=== PATIENT | female | born 1995 | race Caucasian/White ===

== ENCOUNTER 2016-09-30 15:30 | Outpatient (CLI) | payer OTHER | END 2016-09-30 15:31 | LOC: LAB.R 15:30 | PROVIDERS: ATTEND Physician Assistant Medical | DX: R35.0 Frequency of micturition (principal) | CPT/HCPCS: 87077; 87086 ==

== ENCOUNTER 2017-01-12 15:05 | Outpatient (CLI) | payer OTHER ==
[2017-01-12 19:40] LABS: BASOPHILS # (AUTO) 0.1 10^3/uL (0.0-0.1); BASOPHILS % (AUTO) 0.8 %; EOSINOPHILS # (AUTO) 0.2 10^3/uL (0.0-0.7); EOSINOPHILS % (AUTO) 2.5 %; HCT - HEMATOCRIT 40.2 % (37.0-47.0); HGB - HEMOGLOBIN 13.7 g/dL (12.0-16.0); LYMPHOCYTES # (AUTO) 2.7 10^3/uL (1.5-3.5); LYMPHOCYTES % (AUTO) 31.1 %; MEAN CORPUSCULAR HEMOGLOBIN 30.3 pg (27.0-31.0); MEAN CORPUSCULAR HGB CONC 33.9 g/dL (32.0-36.0); MEAN CORPUSCULAR VOLUME 89.4 fL (81.0-99.0); MEAN PLATELET VOLUME 8.8 fL (7.9-10.8); MONOCYTES # (AUTO) 0.7 10^3/uL (0.0-1.0); MONOCYTES % (AUTO) 8.4 %; NEUTROPHILS % (AUTO) 57.2 %; NUCLEATED RED BLOOD CELLS AUTO 0.1 /100WBC; RED CELL DISTRIBUTION WIDTH 12.5 % (12.0-15.0); UNCORRECTED WHITE BLOOD COUNT 8.8 x10^3/uL; WHITE BLOOD COUNT 8.8 x10^3/uL (4.8-10.8)
[2017-01-12 20:06] LABS: HEMOGLOBIN A1C 0.44 g/dL
[2017-01-12 20:15] LABS: ALBUMIN/GLOBULIN RATIO 1.7 (1.0-2.2); BILIRUBIN,TOTAL 0.4 mg/dL (0.2-1.0); BUN - BLOOD UREA NITROGEN 15 mg/dL (6-20); CALCIUM 9.4 mg/dL (8.5-10.3); CARBON DIOXIDE - CO2 23 mmol/L (21-32); CHLORIDE 107 mmol/L (101-111); CHOL/HDL RATIO 2.6 (<4.4); CHOLESTEROL 164 mg/dL; CREATININE 0.6 mg/dL (0.4-1.0); GFR - MDRD 125 (>89); GLUCOSE 81 mg/dL (70-100); HDL CHOLESTEROL 62 mg/dL; LDL/HDL RATIO 1.5 (<4.4); POTASSIUM 3.9 mmol/L (3.5-5.0); SODIUM 138 mmol/L (135-145); TOTAL PROTEIN 7.6 g/dL (6.7-8.2); TRIGLYCERIDES 50 mg/dL; VLDL CHOLESTEROL 10 mg/dL
[2017-01-12 20:20] LABS: PLATELET ESTIMATE, MANUAL NORMAL (130-450,000) (NORMAL); PLATELET MORPHOLOGY NORMAL APPEARANCE (NORMAL); WBC MORPHOLOGY (MULTIPLE) NORMAL APPEARANCE (NORMAL)
== END 2017-01-12 15:06 ==
LOC: LAB.WCP 15:05
PROVIDERS: ATTEND Family Medicine
DX: Z00.00 Encounter for general adult medical examination without abnormal findings (principal); R50.9 Fever, unspecified
CPT/HCPCS: 36415; 80053; 80061; 83036; 84443; 85025; 85651

== ENCOUNTER 2017-01-26 12:33 | Outpatient (CLI) | payer OTHER ==
--- NOTE | 2017-01-26 15:15 | CT Report ---
CT BRAIN WITHOUT CONTRAST: 01/26/2017 CLINICAL INDICATION: Headache. TECHNIQUE: Axial CT images of the brain were obtained without contrast. No previous CT is available for comparison. In accordance with CT protocol optimization, one or more of the following dose reduction techniques w ere utilized for this exam: automated exposure control, adjustment of mA and/or KV based on patient size, or use of iterative reconstructive technique. FINDINGS: The ventricles and sulci are normal in size, shape, and configuration. The basilar cister ns are patent. There is no evidence of hemorrhage, mass effect, or midline shift. No calvarial frac ture is present. Please also refer to CT of the sinuses of the same day. IMPRESSION: NORMAL CT OF THE BRAIN WITHOUT CONTRAST. JOB #: [id number] EXT JOB #:[id number]
--- NOTE | 2017-01-26 15:17 | CT Report ---
CT SINUSES WITHOUT CONTRAST: 01/26/2017 CLINICAL INDICATION: Fever, pain. TECHNIQUE: Axial CT images of the paranasal sinuses were obtained without contrast, following which sagittal and coronal reconstructions were performed. In accordance with CT protocol optimization, one or more of the following dose reduction techniques w ere utilized for this exam: automated exposure control, adjustment of mA and/or KV based on patient size, or use of iterative reconstructive technique. FINDINGS: There is mucosal thickening in the maxillary sinuses and right worse than left frontal sin uses, as well as patchy opacification of ethmoid air cells. The sphenoid sinus appears unremarkable. The nasal septum is midline. The ostiomeatal units are patent. The mastoid air cells appear alla lly pneumatized. No osseous destruction is seen. The visualized orbital contents appear unremarkabl e. IMPRESSION: CHRONIC SINUS DISEASE. JOB #: [id number] EXT JOB #:[id number]
--- NOTE | 2017-01-26 15:20 | XRAY Report ---
TWO VIEW CHEST: 01/26/2017 CLINICAL INDICATION: Fever. FINDINGS: Frontal and lateral views of the chest demonstrate a normal cardiac silhouette. The lungs are clear. No effusion or pneumothorax is present. IMPRESSION: NORMAL CHEST. JOB #: [id number] EXT JOB #:[id number]
== END 2017-01-26 12:34 | disposition home or self-care (01) ==
LOC: DI 12:33
PROVIDERS: ATTEND Family Medicine
DX: J32.9 Chronic sinusitis, unspecified (principal)
CPT/HCPCS: 70450; 70486; 71020

== ENCOUNTER 2017-06-15 09:45 | Emergency (ER) | payer OTHER ==
[2017-06-15 10:26] LABS: BASOPHILS # (AUTO) 0.1 10^3/uL (0.0-0.1); BASOPHILS % (AUTO) 0.9 %; EOSINOPHILS # (AUTO) 0.4 10^3/uL (0.0-0.7); EOSINOPHILS % (AUTO) 4.8 %; HGB - HEMOGLOBIN 12.7 g/dL (12.0-16.0); LYMPHOCYTES % (AUTO) 33.6 %; MEAN CORPUSCULAR HGB CONC 34.8 g/dL (32.0-36.0); MEAN CORPUSCULAR VOLUME 86.3 fL (81.0-99.0); MEAN PLATELET VOLUME 7.7 fL (7.9-10.8); MONOCYTES # (AUTO) 0.7 10^3/uL (0.0-1.0); MONOCYTES % (AUTO) 7.5 %; NEUTROPHILS # (AUTO) 4.7 10^3/uL (1.5-6.6); NEUTROPHILS % (AUTO) 53.2 %; PLT - PLATELET COUNT 307 10^3/uL (130-450); RED BLOOD COUNT 4.24 10^6/uL (4.20-5.40); RED CELL DISTRIBUTION WIDTH 12.4 % (12.0-15.0); WHITE BLOOD COUNT 8.9 x10^3/uL (4.8-10.8)
[2017-06-15 10:36] LABS: CALCIUM 9.2 mg/dL (8.5-10.3); CREATININE 0.5 mg/dL (0.4-1.0)
--- NOTE | 2017-06-15 11:24 | ED Physician Documentation ---
History of Present Illness - Stated complaint Stated Complaint: FEMALE - Chief complaint Chief Complaint: General - History obtained from History obtained from: Patient - History of Present Illness Timing: How many days ago (2) - Additonal information Additional information: 21-year-old female had a LEEP procedure done about 2 weeks ago and the day before yesterday she had some vomiting and following that she developed vaginal bleeding. She has had a lot of vaginal bleeding as many as a pad every hour. She had some pain associated with this the pain is now improved she continues to have the bleeding. She did have some lightheaded and dizziness yesterday that is resolved today. Review of Systems Constitutional: denies: Fever Eyes: denies: Decreased vision Ears: denies: Ear pain Nose: denies: Congestion Throat: denies: Sore throat Cardiac: denies: Chest pain / pressure Respiratory: denies: Dyspnea, Cough GI: reports: Nausea (resolved), Vomiting (resolved). denies: Abdominal Pain : reports: Vaginal bleeding. denies: Dysuria, Frequency Skin: denies: Rash Musculoskeletal: denies: Neck pain, Back pain, Extremity pain PD PAST MEDICAL HISTORY - Past Medical History Past Medical History: No - Past Surgical History Past Surgical History: Yes HEENT: Tonsil/Adenoidectomy - Present Medications Home Medications: Ambulatory Orders Medication Instructions Recorded Confirmed No Known Home Medications [No 06/15/17 06/15/17 Known Home Medications] - Allergies Allergies/Adverse Reactions: Allergies Allergy/AdvReac Type Severity Reaction Status Date / Time steroids Allergy Unknown Uncoded 06/15/17 09:52 - Social History Does the pt smoke?: No Smoking Status: Never smoker PD ED PE NORMAL - Vitals Vital signs reviewed: Yes (hypertensive) - General General: Alert and oriented X 3, No acute distress, Well developed/nourished - HEENT HEENT: Atraumatic, PERRL - Neck Neck: Supple, no meningeal sign - Respiratory Respiratory: No respiratory distress - Abdomen Abdomen: Soft, Non tender - Back Back: No CVA TTP, No spinal TTP - Derm Derm: Normal color, Warm and dry, No rash - Extremities Extremities: No deformity, No edema - Neuro Neuro: No motor deficit, No sensory deficit Eye Opening: Spontaneous Motor: Obeys Commands Verbal: Oriented GCS Score: 15 - Psych Psych: Normal mood, Normal affect Results - Vitals Vitals: Vital Signs - 24 hr 06/15/17 09:49 Temperature 37.0 C Heart Rate 77 Respiratory 18 Rate Blood Pressure 146/78 H O2 Saturation 98 Oxygen O2 Source Room air - Labs Labs: Laboratory Tests 06/15/17 06/15/17 10:08 10:08 WBC 8.9 RBC 4.24 Hgb 12.7 Hct 36.6 L MCV 86.3 MCH 30.0 MCHC 34.8 RDW 12.4 Plt Count 307 MPV 7.7 L Neut # 4.7 Lymph # 3.0 [place] # 0.7 Eos # 0.4 Baso # 0.1 Absolute Nucleated RBC 0.00 Nucleated RBC % 0.0 Sodium 140 Potassium 3.5 Chloride 109 Carbon Dioxide 22 Anion Gap 9.0 BUN 13 Creatinine 0.5 Estimated GFR (MDRD) 154 Glucose 88 Calcium 9.2 PD MEDICAL DECISION MAKING - ED course Complexity details: reviewed old records, reviewed results, re-evaluated patient , considered differential, d/w patient ED course: 21-year-old female with vaginal bleeding a significant quantity after having a LEEP procedure. Her blood counts today are in a normal range and I have contacted her surgeon Dr. Marlow and he has recommended that she go to the clinic today for treatment. The clinic is contacted and they will contact the patient regarding a time to come in today. Departure - Departure Disposition: 01 Home, Self Care Clinical Impression: Vaginal bleeding, abnormal Condition: Stable Instructions: ED Bleed Irregular Vaginal Follow-Up: Jazmin Kulkarni MD [Primary Care Provider] - John Marlow MD [Provider Admit Priv/Credential] - Comments: Follow-up in the clinic today for treatment.
[2017-06-15 11:27] VITALS: BP 157/88
== END 2017-06-15 11:40 | disposition home or self-care (01) ==
LOC: ED 09:45
DX: N93.9 Abnormal uterine and vaginal bleeding, unspecified (principal); Z98.890 Other specified postprocedural states
CPT/HCPCS: 36415; 80048; 85025; 99283

== ENCOUNTER 2018-12-17 13:39 | Outpatient (CLI) | payer OTHER ==
--- NOTE | 2018-12-17 15:41 | Ultrasound Report ---
Reason: MENORRHAGIA Procedure Date: 12/17/2018 Accession Number: [id number] / [id number] Procedure: US - Pelvic w/Transvaginal CPT Code: FULL RESULT: EXAM: PELVIC ULTRASOUND EXAM DATE: 12/17/2018 03:18 PM. CLINICAL HISTORY: Menorrhagia. COMPARISON: None. TECHNIQUE: Realtime transabdominal pelvic scan performed to identify the uterus and adnexa and as an overview of other pelvic structures, followed by transvaginal scan to provide greater detail of the uterus and adnexa, with static image documentation. FINDINGS: Uterus: 6.9 x 2.5 x 4.5 cm, volume 41 cc. Anteverted position. Normal overall size and echotexture. Masses: None. Endometrium: 4 mm. Normal. Cervix: Unremarkable. Right Ovary: 2.5 x 1.3 x 2.5 cm, volume 4.2 cc. Normal echotexture and blood flow. Left Ovary: 2.2 x 1.4 x 1.7 cm, volume 2.7 cc. Normal echotexture and blood flow. Free Fluid: Small free fluid noted in the cul-de-sac. Other: None. IMPRESSION: Normal pelvic ultrasound. RADIA
== END 2018-12-17 13:40 | disposition home or self-care (01) ==
LOC: DI 13:39
PROVIDERS: ATTEND Obstetrics & Gynecology
DX: N92.0 Excessive and frequent menstruation with regular cycle (principal)
CPT/HCPCS: 76830; 76856

== ENCOUNTER 2019-01-05 17:15 | Outpatient (CLI) | payer OTHER ==
[2019-01-05 18:51] LABS: BILIRUBIN,URINE NEGATIVE (NEGATIVE); GLUCOSE, URINE (UA) NEGATIVE (NEGATIVE); KETONES,URINE (UA) NEGATIVE (NEGATIVE); LEUKOCYTE ESTERASE, URINE NEGATIVE (NEGATIVE); NITRITE,URINE NEGATIVE (NEGATIVE); OCCULT BLOOD,URINE LARGE (NEGATIVE); PROTEIN,URINE NEGATIVE (NEGATIVE); UROBILINOGEN,URINE 0.2 (NORMAL) E.U./dL (NORMAL)
[2019-01-05 19:25] LABS: CLARITY,URINE CLEAR (CLEAR)
[2019-01-05 19:26] LABS: BACTERIA,URINE None Seen /HPF (None Seen); SQUAMOUS EPITHELIAL CELL,UR MOD Squamous (<= Few)
== END 2019-01-05 23:59 | disposition home or self-care (01) ==
LOC: LAB.R 17:15
PROVIDERS: ATTEND Physician Assistant
DX: R35.0 Frequency of micturition (principal); R53.83 Other fatigue
CPT/HCPCS: 81001; 87086

== ENCOUNTER 2019-01-06 08:00 | Outpatient (CLI) | payer OTHER ==
[2019-01-06 18:50] LABS: BASOPHILS # (AUTO) 0.1 10^3/uL (0.0-0.1); BASOPHILS % (AUTO) 0.6 %; EOSINOPHILS # (AUTO) 0.2 10^3/uL (0.0-0.7); EOSINOPHILS % (AUTO) 2.6 %; HGB - HEMOGLOBIN 11.9 g/dL (12.0-16.0); LYMPHOCYTES # (AUTO) 2.5 10^3/uL (1.5-3.5); LYMPHOCYTES % (AUTO) 30.4 %; MEAN CORPUSCULAR HEMOGLOBIN 29.8 pg (27.0-31.0); MEAN CORPUSCULAR HGB CONC 33.6 g/dL (32.0-36.0); MEAN CORPUSCULAR VOLUME 88.7 fL (81.0-99.0); MEAN PLATELET VOLUME 10.2 fL (7.9-10.8); MONOCYTES # (AUTO) 0.6 10^3/uL (0.0-1.0); MONOCYTES % (AUTO) 6.9 %; NEUTROPHILS # (AUTO) 4.9 10^3/uL (1.5-6.6); NEUTROPHILS % (AUTO) 59.1 %; PLT - PLATELET COUNT 342 10^3/uL (130-450); RED BLOOD COUNT 3.99 10^6/uL (4.20-5.40); RED CELL DISTRIBUTION WIDTH 11.9 % (12.0-15.0); WHITE BLOOD COUNT 8.4 x10^3/uL (4.8-10.8)
[2019-01-06 19:11] LABS: HEMOGLOBIN A1C 0.42 g/dL; HEMOGLOBIN A1C % 5.4 % (4.6-6.2)
[2019-01-06 19:25] LABS: ALBUMIN 4.2 g/dL (3.2-5.5); ALBUMIN/GLOBULIN RATIO 1.2 (1.0-2.2); BILIRUBIN,TOTAL 0.4 mg/dL (0.2-1.0); CALCIUM 9.5 mg/dL (8.5-10.3); CREATININE 0.6 mg/dL (0.4-1.0); TOTAL PROTEIN 7.6 g/dL (6.7-8.2)
== END 2019-01-06 23:59 | disposition home or self-care (01) ==
LOC: LAB.WCP 08:00
PROVIDERS: ATTEND Physician Assistant
DX: D64.9 Anemia, unspecified (principal); R53.83 Other fatigue; Z83.3 Family history of diabetes mellitus
CPT/HCPCS: 36415; 80053; 83036; 83540; 84443; 84466; 85025

== ENCOUNTER 2019-03-21 11:02 | Emergency (ER) | payer OTHER ==
[2019-03-21] MEDS ORDERED: ONDANSETRON 4 MG/2 ML VIAL IVP STA (11:32)
[2019-03-21] MEDS ORDERED: KETOROLAC 30 MG/ML VIAL IVP STA (11:32)
[2019-03-21 11:55] LABS: BASOPHILS # (AUTO) 0.1 10^3/uL (0.0-0.1); BASOPHILS % (AUTO) 0.4 %; EOSINOPHILS # (AUTO) 0.2 10^3/uL (0.0-0.7); EOSINOPHILS % (AUTO) 1.5 %; HGB - HEMOGLOBIN 12.5 g/dL (12.0-16.0); LYMPHOCYTES # (AUTO) 2.9 10^3/uL (1.5-3.5); LYMPHOCYTES % (AUTO) 24.8 %; MEAN CORPUSCULAR HEMOGLOBIN 29.7 pg (27.0-31.0); MEAN CORPUSCULAR HGB CONC 32.7 g/dL (32.0-36.0); MEAN CORPUSCULAR VOLUME 90.7 fL (81.0-99.0); MEAN PLATELET VOLUME 9.7 fL (7.9-10.8); MONOCYTES # (AUTO) 0.7 10^3/uL (0.0-1.0); MONOCYTES % (AUTO) 5.9 %; NEUTROPHILS # (AUTO) 7.8 10^3/uL (1.5-6.6); NEUTROPHILS % (AUTO) 66.8 %; PLT - PLATELET COUNT 388 10^3/uL (130-450); RED BLOOD COUNT 4.21 10^6/uL (4.20-5.40); RED CELL DISTRIBUTION WIDTH 12.7 % (12.0-15.0); WHITE BLOOD COUNT 11.7 x10^3/uL (4.8-10.8)
[2019-03-21 12:09] LABS: ALBUMIN 4.2 g/dL (3.2-5.5); ALBUMIN/GLOBULIN RATIO 1.4 (1.0-2.2); BILIRUBIN,TOTAL 0.4 mg/dL (0.2-1.0); CALCIUM 8.8 mg/dL (8.5-10.3); CREATININE 0.5 mg/dL (0.4-1.0); TOTAL PROTEIN 7.1 g/dL (6.7-8.2)
[2019-03-21 12:11] LABS: BILIRUBIN,URINE NEGATIVE (NEGATIVE); GLUCOSE, URINE (UA) NEGATIVE (NEGATIVE); KETONES,URINE (UA) NEGATIVE (NEGATIVE); LEUKOCYTE ESTERASE, URINE NEGATIVE (NEGATIVE); NITRITE,URINE NEGATIVE (NEGATIVE); OCCULT BLOOD,URINE LARGE (NEGATIVE); PROTEIN,URINE NEGATIVE (NEGATIVE); UROBILINOGEN,URINE 0.2 (NORMAL) E.U./dL (NORMAL)
--- NOTE | 2019-03-21 12:12 | ED Physician Documentation ---
PD HPI ABD PAIN - Stated complaint Stated Complaint: ABD/BACK PX VOMITING - Chief complaint Chief Complaint: Abd Pain - History obtained from History obtained from: Patient - History of Present Illness Timing - onset: Last night Timing - duration: Days (1) Timing - details: Gradual onset, Waxing and waning Pain level max: 9 Pain level now: 2 Quality: Aching, Pain Location: All over / everywhere Radiation: No: Chest, , Lower back, Left flank, Left shoulder, Right flank, Right shoulder, Upper back Improved by: Other (nothing) Worsened by: Other (nothing) Associated symptoms: Nausea, Vomiting (once), Other (LMP 2 weeks ago, pt is on OCP.). No: Fever, Hematemesis, Diarrhea, Constipation, Melena, Hematochezia, Dysuria, Hematuria, Vaginal bleeding, Vaginal dc Recently seen: Not recently seen Review of Systems Constitutional: denies: Fever, Chills Nose: denies: Rhinorrhea / runny nose, Congestion Throat: denies: Sore throat Cardiac: denies: Chest pain / pressure Respiratory: denies: Cough GI: denies: Vomiting, Diarrhea Skin: denies: Rash Musculoskeletal: denies: Neck pain, Back pain Neurologic: denies: Headache PD PAST MEDICAL HISTORY - Past Medical History Past Medical History: No - Past Surgical History Past Surgical History: Yes HEENT: Tonsil/Adenoidectomy - Present Medications Home Medications: Ambulatory Orders Medication Instructions Recorded Confirmed No Known Home Medications 06/15/17 06/15/17 - Allergies Allergies/Adverse Reactions: Allergies Allergy/AdvReac Type Severity Reaction Status Date / Time steroids Allergy Unknown Uncoded 03/21/19 11:11 - Living Situation Living Situation: reports: With family Living Arrangement: reports: At home - Social History Does the pt smoke?: No Smoking Status: Never smoker PD ED PE NORMAL - Vitals Vital signs reviewed: Yes - General General: Alert and oriented X 3, No acute distress - HEENT HEENT: Moist mucous membranes - Neck Neck: Supple, no meningeal sign - Cardiac Cardiac: RRR, Strong equal pulses - Respiratory Respiratory: No respiratory distress, Clear bilaterally - Abdomen Abdomen: Soft, Non distended, Other (Mild tender to palpation suprapubic and bilateral pelvic area.) - Female Female : Pt declined - Back Back: No CVA TTP, No spinal TTP - Derm Derm: Warm and dry - Extremities Extremities: No edema, No calf tenderness / cord - Neuro Neuro: Alert and oriented X 3 - Psych Psych: Normal mood, Normal affect Results - Vitals Vitals: Vital Signs - 24 hr 03/21/19 03/21/19 11:09 13:48 Temperature 36.8 C Heart Rate 76 72 Respiratory 18 18 Rate Blood Pressure 133/96 H 128/89 H O2 Saturation 98 99 Oxygen O2 Source Room air - Labs Labs: Laboratory Tests 03/21/19 03/21/19 03/21/19 11:45 11:45 12:00 WBC 11.7 H RBC 4.21 Hgb 12.5 Hct 38.2 MCV 90.7 MCH 29.7 MCHC 32.7 RDW 12.7 Plt Count 388 MPV 9.7 Neut # (Auto) 7.8 H Lymph # (Auto) 2.9 [place] # (Auto) 0.7 Eos # (Auto) 0.2 Baso # (Auto) 0.1 Absolute Nucleated RBC 0.00 Nucleated RBC % 0.0 Sodium 136 Potassium 3.9 Chloride 107 Carbon Dioxide 23 Anion Gap 6.0 BUN 11 Creatinine 0.5 Estimated GFR (MDRD) 152 Glucose 88 Calcium 8.8 Total Bilirubin 0.4 AST 27 ALT 38 Alkaline Phosphatase 72 Total Protein 7.1 Albumin 4.2 Globulin 2.9 Albumin/Globulin Ratio 1.4 Lipase 25 Urine Color YELLOW Urine Clarity HAZY Urine pH 6.0 Ur Specific [place] 1.025 Urine Protein NEGATIVE Urine Glucose (UA) NEGATIVE Urine Ketones NEGATIVE Urine Occult Blood LARGE H Urine Nitrite NEGATIVE Urine Bilirubin NEGATIVE Urine Urobilinogen 0.2 (NORMAL) Ur Leukocyte Esterase NEGATIVE Urine RBC 0-5 Urine WBC 0-3 Ur Squamous Epith Cells FEW Squamous Urine Bacteria Few Urine Mucus Few Strands Ur Microscopic Review INDICATED Urine Culture Comments NOT INDICATED Urine HCG, Qual NEGATIVE - Rads (name of study) Pelvic ultrasound Radiology: Prelim report reviewed, EMP read contemporaneously, See rad report ( No endometrial mass or polyp. 2. No uterine fibroids. 3. Probable 1.2 cm right corpus luteum or involuting cyst. Otherwise, both ovaries and adnexa are normal. 4. Arterial and venous blood flow are present to the ovaries bilaterally. ) PD MEDICAL DECISION MAKING - ED course Complexity details: reviewed results, re-evaluated patient, considered differential, d/w patient ED course: Patient appears to have a involuting cyst. Possible that this is what triggered her symptoms. She is asymptomatic currently. Feels much better. Will continue supportive care and follow-up with her doctor. Abdomen is soft, nontender nondistended on serial exam. No change in sexual partners. No vaginal discharge or bleeding. Patient counseled regarding signs and symptoms for which I believe and urgent re-evaluation would be necessary. Patient with good understanding of and agreement to plan and is comfortable going home at this time This document was made in part using voice recognition software. While efforts are made to proofread this document, sound alike and grammatical errors may occur. Departure - Departure Disposition: Home, Self Care Clinical Impression: Ovarian cyst Qualifiers: Laterality: right Qualified Code(s): N83.201 - Unspecified ovarian cyst, right side Condition: Good Instructions: ED Cyst Ovarian Follow-Up: Bibi Jade PA [Primary Care Provider] - Comments: You can continue Motrin or Tylenol as needed for pain at home. Return if you worsen. This should improve over the next 24 to 36 hours. Discharge Date/Time: 03/21/19 13:49
[2019-03-21 12:13] LABS: CLARITY,URINE HAZY (CLEAR); HCG UR QUAL NEGATIVE
[2019-03-21 12:19] LABS: BACTERIA,URINE Few /HPF (None Seen); MUCUS,URINE Few Strands; RBC,URINE 0-5 /HPF (0-5); SQUAMOUS EPITHELIAL CELL,UR FEW Squamous (<= Few)
--- NOTE | 2019-03-21 13:23 | Ultrasound Report ---
Reason: pelvic pain, B Procedure Date: 03/21/2019 Accession Number: [id number] / [id number] Procedure: US - Pelvic w/Transvag+Doppler Comp CPT Code: Final Report FULL RESULT: EXAM: PELVIC ULTRASOUND WITH DOPPLERS CLINICAL HISTORY: Pelvic pain, B. COMPARISON: PELVIC W/TRANSVAGINAL 12/17/2018 1:48 PM TECHNIQUE: Realtime transabdominal imaging performed to identify the uterus and adnexa and as an overview of other pelvic structures, followed by transvaginal imaging for better assessment of the endometrium and adnexa, with static image documentation. Color flow imaging and Doppler spectral analysis was performed to evaluate blood flow to the ovaries given pelvic pain and clinical concern for ovarian torsion. FINDINGS: Uterus: 8.2 x 3.4 x 5 cm, volume 72.9 cc. Anteverted position. Normal overall size and echotexture. Masses: None. Endometrium: 11.8 mm. No abnormal flow, endometrial mass or focal thickening. Cervix: Unremarkable. Right Ovary: 3.6 x 2.4 x 2.4 cm, volume 10.8 cc. Normal echotexture. Arterial and venous blood flow are present. PSV 18.2 cm/sec. RI 0.54. Adnexa notable for multiple cysts. The dominant cyst is an irregularly-shaped 1.2 x 0.9 x 1 cm right ovarian cyst with peripheral flow. This cyst contains small volume debris. Left Ovary: 3.2 x 2.1 x 1.8 cm, volume 6.3 cc. Normal echotexture. Arterial and venous blood flow are present. PSV 10 cm/sec. RI 0.55. Adnexa are unremarkable. Free Fluid: Small volume fluid noted in the pelvis. Other: None. IMPRESSION: 1. No endometrial mass or polyp. 2. No uterine fibroids. 3. Probable 1.2 cm right corpus luteum or involuting cyst. Otherwise, both ovaries and adnexa are normal. 4. Arterial and venous blood flow are present to the ovaries bilaterally. RADIA
[2019-03-21 13:49] VITALS: BP 128/89
== END 2019-03-21 13:49 | disposition home or self-care (01) ==
LOC: ED 11:02
DX: N83.201 Unspecified ovarian cyst, right side (principal)
CPT/HCPCS: 36415; 76830; 76856; 80053; 81001; 81003; 81025; 83690; 85025; 87086; 93975; 96374; 99284

== ENCOUNTER 2019-05-26 20:48 | Emergency (ER) | payer OTHER ==
--- NOTE | 2019-05-26 22:12 | ED Physician Documentation ---
History of Present Illness - Stated complaint Stated Complaint: DIARRHEA/FLU SX/FEM - Chief complaint Chief Complaint: General - History obtained from History obtained from: Patient (Patient is a 23-year-old female who presents with multiple complaints she was seen by her PCP yesterday for sore throat and generalized body aches today she is complaining of generalized body aches and generalized cramping and vaginal bleeding and spotting she reports is not sexually active reports she is never been she denies headache neck pain or rashes.She denies any dysuria hematuria or forDenies any lower extremity weakness or bowel bladder dysfunction or saddle anesthesia.) Review of Systems Constitutional: reports: Reviewed and negative Eyes: reports: Reviewed and negative Ears: reports: Reviewed and negative Nose: reports: Reviewed and negative Throat: reports: Other (Sore throat) Cardiac: reports: Reviewed and negative Respiratory: reports: Reviewed and negative GI: reports: Reviewed and negative : reports: Other (Vaginal cramping) Skin: reports: Reviewed and negative Musculoskeletal: reports: Other (Diffuse body aches) Neurologic: reports: Reviewed and negative Psychiatric: reports: Reviewed and negative Endocrine: reports: Reviewed and negative Immunocompromised: reports: Reviewed and negative PD PAST MEDICAL HISTORY - Past Medical History Past Medical History: Yes Cardiovascular: None Respiratory: Asthma Neuro: None Endocrine/Autoimmune: None GI: [employer]: Ovarian cysts : None HEENT: None Psych: Depression Musculoskeletal: None Derm: Eczema - Past Surgical History Past Surgical History: Yes HEENT: Tonsil/Adenoidectomy - Present Medications Home Medications: Ambulatory Orders Medication Instructions Recorded Confirmed No Known Home Medications 06/15/17 06/15/17 - Allergies Allergies/Adverse Reactions: Allergies Allergy/AdvReac Type Severity Reaction Status Date / Time steroids Allergy Unknown Uncoded 05/26/19 20:51 - Social History Does the pt smoke?: No Smoking Status: Never smoker Does the pt drink ETOH?: No Does the pt have substance abuse?: No - Immunizations Immunizations are current?: No Immunizations: TDAP current <10years PD ED PE NORMAL - Vitals Vital signs reviewed: Yes - General General: Alert and oriented X 3, No acute distress - HEENT HEENT: PERRL - Neck Neck: Supple, no meningeal sign - Cardiac Cardiac: RRR, No murmur - Respiratory Respiratory: Clear bilaterally - Abdomen Abdomen: Normal bowel sounds, Soft, Non tender, Non distended - Derm Derm: Warm and dry - Extremities Extremities: No deformity - Neuro Neuro: Alert and oriented X 3 - Psych Psych: Normal mood, Normal affect Results - Vitals Vitals: Vital Signs - 24 hr 05/26/19 05/27/19 20:51 00:07 Temperature 36.7 C 37 C Heart Rate 76 68 Respiratory 17 16 Rate Blood Pressure 162/93 H 137/77 H O2 Saturation 100 98 Oxygen O2 Source Room air - Labs Labs: Laboratory Tests 05/26/19 05/26/19 05/26/19 22:40 22:50 23:02 WBC 5.6 RBC 4.39 Hgb 12.7 Hct 38.6 MCV 87.9 MCH 28.9 MCHC 32.9 RDW 12.1 Plt Count 360 MPV 9.6 Neut # (Auto) 2.8 Lymph # (Auto) 1.8 [place] # (Auto) 0.8 Eos # (Auto) 0.1 Baso # (Auto) 0.0 Absolute Nucleated RBC 0.00 Nucleated RBC % 0.0 Sodium Potassium Chloride Carbon Dioxide Anion Gap BUN Creatinine Estimated GFR (MDRD) Glucose Calcium Total Bilirubin AST ALT Alkaline Phosphatase Total Protein Albumin Globulin Albumin/Globulin Ratio Lipase Urine Color YELLOW Urine Clarity CLEAR Urine pH 6.5 Ur Specific [place] 1.015 Urine Protein TRACE Urine Glucose (UA) NEGATIVE Urine Ketones TRACE Urine Occult Blood LARGE H Urine Nitrite NEGATIVE Urine Bilirubin NEGATIVE Urine Urobilinogen 0.2 (NORMAL) Ur Leukocyte Esterase NEGATIVE Urine RBC 6-10 H Urine WBC 0-3 Ur Squamous Epith Cells FEW Squamous Urine Bacteria Rare Ur Microscopic Review INDICATED Urine Culture Comments NOT INDICATED Urine HCG, Qual NEGATIVE Influenza A (Rapid) Negative Influenza B (Rapid) Negative 05/26/19 23:02 WBC RBC Hgb Hct MCV MCH MCHC RDW Plt Count MPV Neut # (Auto) Lymph # (Auto) [place] # (Auto) Eos # (Auto) Baso # (Auto) Absolute Nucleated RBC Nucleated RBC % Sodium 137 Potassium 3.2 L Chloride 105 Carbon Dioxide 21 Anion Gap 11.0 BUN 9 Creatinine 0.7 Estimated GFR (MDRD) 103 Glucose 93 Calcium 9.2 Total Bilirubin 0.6 AST 17 ALT 18 Alkaline Phosphatase 67 Total Protein 7.4 Albumin 4.2 Globulin 3.2 Albumin/Globulin Ratio 1.3 Lipase 23 Urine Color Urine Clarity Urine pH Ur Specific [place] Urine Protein Urine Glucose (UA) Urine Ketones Urine Occult Blood Urine Nitrite Urine Bilirubin Urine Urobilinogen Ur Leukocyte Esterase Urine RBC Urine WBC Ur Squamous Epith Cells Urine Bacteria Ur Microscopic Review Urine Culture Comments Urine HCG, Qual Influenza A (Rapid) Influenza B (Rapid) PD MEDICAL DECISION MAKING - ED course Complexity details: other (12:33 AM Patient reevaluated she reports she is pain- free at this time her rapid flu was negative her other labs are unremarkable patient would like to be discharged home and follow-up with her primary care provider this morning. Patient does have medical decision-making capability capacity.) Departure - Departure Disposition: 01 Home, Self Care Clinical Impression: Generalized muscle ache Condition: Good Instructions: IBUPROFEN (Adult), ANTI-INFLAMMATORY, General Follow-Up: Bibi Jade PA [Primary Care Provider] - Tomorrow
[2019-05-26] MEDS ORDERED: MORPHINE 2 MG/ML CARPUJECT IVP STA (22:40)
[2019-05-26] MEDS ORDERED: SODIUM CHLORIDE 0.9% 1,000 ML IV ONE (22:40)
[2019-05-26 23:14] LABS: BILIRUBIN,URINE NEGATIVE (NEGATIVE); GLUCOSE, URINE (UA) NEGATIVE (NEGATIVE); KETONES,URINE (UA) TRACE mg/dL (NEGATIVE); LEUKOCYTE ESTERASE, URINE NEGATIVE (NEGATIVE); NITRITE,URINE NEGATIVE (NEGATIVE); OCCULT BLOOD,URINE LARGE (NEGATIVE); PH,URINE 6.5 PH (5.0-7.5); PROTEIN,URINE TRACE mg/dL (NEGATIVE); UROBILINOGEN,URINE 0.2 (NORMAL) E.U./dL (NORMAL)
[2019-05-26 23:14] LABS: BASOPHILS % (AUTO) 0.5 %; EOSINOPHILS # (AUTO) 0.1 10^3/uL (0.0-0.7); EOSINOPHILS % (AUTO) 1.8 %; HGB - HEMOGLOBIN 12.7 g/dL (12.0-16.0); LYMPHOCYTES # (AUTO) 1.8 10^3/uL (1.5-3.5); LYMPHOCYTES % (AUTO) 32.7 %; MEAN CORPUSCULAR HEMOGLOBIN 28.9 pg (27.0-31.0); MEAN CORPUSCULAR HGB CONC 32.9 g/dL (32.0-36.0); MEAN CORPUSCULAR VOLUME 87.9 fL (81.0-99.0); MEAN PLATELET VOLUME 9.6 fL (7.9-10.8); MONOCYTES # (AUTO) 0.8 10^3/uL (0.0-1.0); MONOCYTES % (AUTO) 14.5 %; NEUTROPHILS # (AUTO) 2.8 10^3/uL (1.5-6.6); NEUTROPHILS % (AUTO) 50.1 %; PLT - PLATELET COUNT 360 10^3/uL (130-450); RED BLOOD COUNT 4.39 10^6/uL (4.20-5.40); RED CELL DISTRIBUTION WIDTH 12.1 % (12.0-15.0); WHITE BLOOD COUNT 5.6 x10^3/uL (4.8-10.8)
[2019-05-26 23:21] LABS: CLARITY,URINE CLEAR (CLEAR); HCG UR QUAL NEGATIVE
[2019-05-26 23:31] LABS: BACTERIA,URINE Rare /HPF (None Seen); SQUAMOUS EPITHELIAL CELL,UR FEW Squamous (<= Few)
[2019-05-26 23:34] LABS: ALBUMIN 4.2 g/dL (3.2-5.5); ALBUMIN/GLOBULIN RATIO 1.3 (1.0-2.2); BILIRUBIN,TOTAL 0.6 mg/dL (0.2-1.0); CALCIUM 9.2 mg/dL (8.5-10.3); CREATININE 0.7 mg/dL (0.4-1.0); TOTAL PROTEIN 7.4 g/dL (6.7-8.2)
[2019-05-27 00:08] VITALS: BP 137/77
== END 2019-05-27 00:59 | disposition home or self-care (01) ==
LOC: ED 20:48
DX: M79.18 Myalgia, other site (principal); N93.9 Abnormal uterine and vaginal bleeding, unspecified
CPT/HCPCS: 36415; 80053; 81001; 81003; 81025; 83690; 85025; 87086; 87275; 87276; 96361; 96374; 99284

== ENCOUNTER 2019-07-29 08:00 | Outpatient (CLI) | payer OTHER | END 2019-07-29 23:59 | disposition home or self-care (01) | LOC: LAB.WCP 08:00 | PROVIDERS: ATTEND Family Medicine | DX: J11.1 Influenza due to unidentified influenza virus with other respiratory manifestations (principal) | CPT/HCPCS: 87275; 87276 ==

== ENCOUNTER 2019-09-19 17:05 | Emergency (ER) | payer OTHER ==
[2019-09-19 17:30] LABS: BASOPHILS % (AUTO) 0.1 %; HGB - HEMOGLOBIN 12.6 g/dL (12.0-16.0); LYMPHOCYTES # (AUTO) 1.6 10^3/uL (1.5-3.5); MEAN CORPUSCULAR HEMOGLOBIN 29.4 pg (27.0-31.0); MEAN CORPUSCULAR HGB CONC 33.2 g/dL (32.0-36.0); MEAN CORPUSCULAR VOLUME 88.3 fL (81.0-99.0); MEAN PLATELET VOLUME 9.3 fL (7.9-10.8); MONOCYTES # (AUTO) 0.8 10^3/uL (0.0-1.0); MONOCYTES % (AUTO) 7.8 %; NEUTROPHILS # (AUTO) 7.7 10^3/uL (1.5-6.6); NEUTROPHILS % (AUTO) 75.6 %; PLT - PLATELET COUNT 365 10^3/uL (130-450); RED BLOOD COUNT 4.29 10^6/uL (4.20-5.40); RED CELL DISTRIBUTION WIDTH 12.1 % (12.0-15.0); WHITE BLOOD COUNT 10.2 x10^3/uL (4.8-10.8)
[2019-09-19 17:44] LABS: ALBUMIN 4.3 g/dL (3.2-5.5); ALBUMIN/GLOBULIN RATIO 1.5 (1.0-2.2); BILIRUBIN,TOTAL 0.9 mg/dL (0.2-1.0); CALCIUM 9.1 mg/dL (8.5-10.3); CREATININE 0.7 mg/dL (0.4-1.0); TOTAL PROTEIN 7.2 g/dL (6.7-8.2)
[2019-09-19] MEDS ORDERED: LOPERAMIDE 2 MG CAPSULE PO STA (18:04)
[2019-09-19] MEDS ORDERED: LACTATED RINGERS 1,000 ML IV STA (18:04)
[2019-09-19] MEDS ORDERED: KETOROLAC 15 MG/ML VIAL IVP STA (18:04)
[2019-09-19] MEDS ORDERED: PROMETHAZINE INJ 25 MG in SODIUM CHLORIDE 0.9% 50 ML IV STA (18:04)
--- NOTE | 2019-09-19 18:05 | ED Physician Documentation ---
PD HPI ABD PAIN - Stated complaint Stated Complaint: N/V, ABD PX - Chief complaint Chief Complaint: Abd Pain - History obtained from History obtained from: Patient - History of Present Illness Timing - onset: Today (24-year-old woman with history of some psychiatric issues and ulcers presents with vomiting diarrhea and abdominal pain starting this morning at 4 AM. No blood from either end. Potentially a fever but none measured. No history of abdominal surgeries. 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 : None HEENT: None Psych: Depression Musculoskeletal: None Derm: Eczema - Past Surgical History Past Surgical History: Yes HEENT: Tonsil/Adenoidectomy - Present Medications Home Medications: Ambulatory Orders Medication Instructions Recorded Confirmed Dicyclomine [Bentyl] 20 mg PO QID PRN #15 capsule 09/19/19 Loperamide [Imodium] 2 mg PO QID PRN #10 capsule 09/19/19 Promethazine [Phenergan] 25 mg PO Q6H PRN #10 tab 09/19/19 - Allergies Allergies/Adverse Reactions: Allergies Allergy/AdvReac Type Severity Reaction Status Date / Time steroids Allergy Unknown Uncoded 09/19/19 17:12 - Social History Does the pt smoke?: No Smoking Status: Never smoker Does the pt drink ETOH?: No Does the pt have substance abuse?: No - Immunizations Immunizations are current?: Yes Immunizations: TDAP current <10years - POLST Patient has POLST: No PD ED PE NORMAL - Vitals Vital signs reviewed: Yes - General General: Alert and oriented X 3, No acute distress - Abdomen Abdomen: Normal bowel sounds, Soft, Non tender - Back Back: No CVA TTP, No spinal TTP - Derm Derm: Normal color, Warm and dry - Extremities Extremities: No edema, No calf tenderness / cord - Neuro Neuro: Alert and oriented X 3, Normal speech Results - Vitals Vitals: Vital Signs - 24 hr 09/19/19 09/19/19 17:12 17:39 Temperature 36.8 C 36.9 C Heart Rate 68 64 Respiratory 14 16 Rate Blood Pressure 141/80 H 147/86 H O2 Saturation 98 99 Oxygen O2 Source Room air - Labs Labs: Laboratory Tests 09/19/19 09/19/19 09/19/19 17:24 17:24 18:33 WBC 10.2 RBC 4.29 Hgb 12.6 Hct 37.9 MCV 88.3 MCH 29.4 MCHC 33.2 RDW 12.1 Plt Count 365 MPV 9.3 Neut # (Auto) 7.7 H Lymph # (Auto) 1.6 [place] # (Auto) 0.8 Eos # (Auto) 0.0 Baso # (Auto) 0.0 Absolute Nucleated RBC 0.00 Nucleated RBC % 0.0 Sodium 139 Potassium 3.2 L Chloride 106 Carbon Dioxide 24 Anion Gap 9.0 BUN 10 Creatinine 0.7 Estimated GFR (MDRD) 102 Glucose 92 Calcium 9.1 Total Bilirubin 0.9 AST 16 ALT 25 Alkaline Phosphatase 70 Total Protein 7.2 Albumin 4.3 Globulin 2.9 Albumin/Globulin Ratio 1.5 Lipase 22 Urine Color YELLOW Urine Clarity HAZY Urine pH 5.5 Ur Specific [place] >=1.030 H Urine Protein 30 H Urine Glucose (UA) NEGATIVE Urine Ketones TRACE Urine Occult Blood LARGE H Urine Nitrite NEGATIVE Urine Bilirubin NEGATIVE Urine Urobilinogen 0.2 (NORMAL) Ur Leukocyte Esterase NEGATIVE Urine RBC 11-25 H Urine WBC 0-3 Ur Squamous Epith Cells FEW Squamous Urine Bacteria Few Urine Mucus Few Strands Ur Microscopic Review INDICATED Urine Culture Comments NOT INDICATED Urine HCG, Qual 09/19/19 18:33 WBC RBC Hgb Hct MCV MCH MCHC RDW Plt Count MPV Neut # (Auto) Lymph # (Auto) [place] # (Auto) Eos # (Auto) Baso # (Auto) Absolute Nucleated RBC Nucleated RBC % Sodium Potassium Chloride Carbon Dioxide Anion Gap BUN Creatinine Estimated GFR (MDRD) Glucose Calcium Total Bilirubin AST ALT Alkaline Phosphatase Total Protein Albumin Globulin Albumin/Globulin Ratio Lipase Urine Color Urine Clarity Urine pH Ur Specific [place] >=1.030 H Urine Protein Urine Glucose (UA) Urine Ketones Urine Occult Blood Urine Nitrite Urine Bilirubin Urine Urobilinogen Ur Leukocyte Esterase Urine RBC Urine WBC Ur Squamous Epith Cells Urine Bacteria Urine Mucus Ur Microscopic Review Urine Culture Comments Urine HCG, Qual NEGATIVE PD MEDICAL DECISION MAKING - ED course ED course: 24-year-old woman with vomiting diarrhea and abdominal pain, benign exam. Most consistent with gastroenteritis. On reexamination at about 7:20 PM after medications she was feeling much better, nontender on reevaluation. Departure - Departure Disposition: 01 Home, Self Care Clinical Impression: Gastroenteritis Condition: Good Record reviewed to determine appropriate education?: Yes Instructions: ED Gastroenteritis Viral Prescriptions: Dicyclomine [Bentyl] 20 mg PO QID PRN #15 capsule PRN Reason: Abdominal Pain Loperamide [Imodium] 2 mg PO QID PRN #10 capsule PRN Reason: Diarrhea Promethazine [Phenergan] 25 mg PO Q6H PRN #10 tab PRN Reason: Nausea / Vomiting Comments: Return if not better in 12 to 18 hours, anytime if worse. Forms: Activity restrictions
[2019-09-19 18:56] LABS: GLUCOSE, URINE (UA) NEGATIVE (NEGATIVE); KETONES,URINE (UA) TRACE mg/dL (NEGATIVE); LEUKOCYTE ESTERASE, URINE NEGATIVE (NEGATIVE); NITRITE,URINE NEGATIVE (NEGATIVE); OCCULT BLOOD,URINE LARGE (NEGATIVE); PH,URINE 5.5 PH (5.0-7.5); PROTEIN,URINE 30 mg/dL (NEGATIVE); UROBILINOGEN,URINE 0.2 (NORMAL) E.U./dL (NORMAL)
[2019-09-19 19:07] LABS: BILIRUBIN,URINE NEGATIVE (NEGATIVE); ICTOTEST,URINE NEGATIVE
[2019-09-19 19:08] LABS: CLARITY,URINE HAZY (CLEAR); HCG UR QUAL NEGATIVE
[2019-09-19 19:15] LABS: BACTERIA,URINE Few /HPF (None Seen); MUCUS,URINE Few Strands; SQUAMOUS EPITHELIAL CELL,UR FEW Squamous (<= Few)
[2019-09-19 19:58] VITALS: BP 155/76
== END 2019-09-19 19:58 | disposition home or self-care (01) ==
LOC: ED 17:05
DX: K52.9 Noninfective gastroenteritis and colitis, unspecified (principal)
CPT/HCPCS: 36415; 80053; 81001; 81025; 83690; 85025; 96365; 96375; 99283; 99284; A9270; J7040; J7120; 81003; 87086

== ENCOUNTER 2019-09-30 13:46 | Emergency (ER) | payer OTHER ==
[2019-09-30 14:33] LABS: HGB - HEMOGLOBIN 12.4 g/dL (12.0-16.0); LYMPHOCYTES # (AUTO) 2.3 10^3/uL (1.5-3.5); LYMPHOCYTES % (AUTO) 41.4 %; MEAN CORPUSCULAR HEMOGLOBIN 29.7 pg (27.0-31.0); MEAN CORPUSCULAR HGB CONC 32.9 g/dL (32.0-36.0); MEAN CORPUSCULAR VOLUME 90.2 fL (81.0-99.0); MEAN PLATELET VOLUME 9.3 fL (7.9-10.8); MONOCYTES # (AUTO) 0.6 10^3/uL (0.0-1.0); MONOCYTES % (AUTO) 11.1 %; NEUTROPHILS # (AUTO) 2.6 10^3/uL (1.5-6.6); NEUTROPHILS % (AUTO) 47.1 %; PLT - PLATELET COUNT 309 10^3/uL (130-450); RED BLOOD COUNT 4.18 10^6/uL (4.20-5.40); RED CELL DISTRIBUTION WIDTH 12.6 % (12.0-15.0); WHITE BLOOD COUNT 5.6 x10^3/uL (4.8-10.8)
[2019-09-30 14:56] LABS: BILIRUBIN,URINE NEGATIVE (NEGATIVE); KETONES,URINE (UA) TRACE mg/dL (NEGATIVE); OCCULT BLOOD,URINE TRACE-INTA (NEGATIVE); PH,URINE 6.5 PH (5.0-7.5)
[2019-09-30 14:59] LABS: CLARITY,URINE CLOUDY (CLEAR); HCG UR QUAL NEGATIVE
[2019-09-30 15:05] LABS: ALBUMIN 3.9 g/dL (3.2-5.5); ALBUMIN/GLOBULIN RATIO 1.3 (1.0-2.2); BILIRUBIN,TOTAL 0.5 mg/dL (0.2-1.0); CALCIUM 9.1 mg/dL (8.5-10.3); CREATININE 0.6 mg/dL (0.4-1.0); TOTAL PROTEIN 6.9 g/dL (6.7-8.2)
[2019-09-30 15:08] LABS: AMORPHOUS SEDIMENT,UR Moderate /LPF; BACTERIA,URINE Moderate /HPF (None Seen); RBC,URINE 0-5 /HPF (0-5); SQUAMOUS EPITHELIAL CELL,UR MOD Squamous (<= Few)
[2019-09-30] MEDS ORDERED: AZITHROMYCIN 250 MG TABLET PO STA (16:10)
[2019-09-30] MEDS ORDERED: cefTRIAXone 1 GM VIAL IM STA (16:10)
[2019-09-30] MEDS ORDERED: LIDOCAINE 1% 2 ML VIAL MC ONE (16:10)
--- NOTE | 2019-09-30 16:27 | ED Physician Documentation ---
History of Present Illness - Stated complaint Stated Complaint: FEMALE - Chief complaint Chief Complaint: Abd Pain - History obtained from History obtained from: Patient - History of Present Illness Timing: How many weeks ago (1) Pain level max: 8 Pain level now: 8 - Additonal information Additional information: 24-year-old female presents to the emergency department with lower abdominal/pelvic pain. Worsening over the past week. She states that she has been placed on an antibiotic by her doctor. She does not know what antibiotic. She states the pain is not getting any better. She did recently have intercourse with a new partner. No condoms used. No vaginal bleeding or discharge. Pain is diffuse and across the lower abdomen. No vomiting. No fever. Review of Systems Constitutional: denies: Fever, Chills GI: denies: Nausea, Vomiting, Diarrhea : reports: Dysuria. 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 : None HEENT: None Psych: Depression Musculoskeletal: None Derm: Eczema - Past Surgical History Past Surgical History: Yes HEENT: Tonsil/Adenoidectomy - Present Medications Home Medications: Ambulatory Orders Medication Instructions Recorded Confirmed Dicyclomine [Bentyl] 20 mg PO QID PRN #15 capsule 09/19/19 Loperamide [Imodium] 2 mg PO QID PRN #10 capsule 09/19/19 Promethazine [Phenergan] 25 mg PO Q6H PRN #10 tab 09/19/19 Doxycycline Hyclate 100 mg PO BID #28 capsule 09/30/19 Oxycodone HCl/Acetaminophen 1 - 2 each PO Q6H PRN #14 tablet 09/30/19 [Percocet 5-325 mg Tablet] - Allergies Allergies/Adverse Reactions: Allergies Allergy/AdvReac Type Severity Reaction Status Date / Time steroids Allergy Unknown Uncoded 09/30/19 13:59 - Social History Does the pt smoke?: No Smoking Status: Never smoker Does the pt drink ETOH?: No Does the pt have substance abuse?: No - Immunizations Immunizations are current?: Yes Immunizations: TDAP current <10years - POLST Patient has POLST: No PD ED PE NORMAL - Vitals Vital signs reviewed: Yes - General General: Alert and oriented X 3, No acute distress, Well developed/nourished - HEENT HEENT: PERRL, Moist mucous membranes - Neck Neck: Supple, no meningeal sign - Cardiac Cardiac: RRR, Strong equal pulses - Respiratory Respiratory: No respiratory distress, Clear bilaterally - Abdomen Abdomen: Soft, Non distended, Other (Tender to palpation bilateral lower quadrant. No peritoneal signs.) - Female Female : Other (Clear vaginal discharge with a an inflamed cervix. Positive cervical motion tenderness.) - Derm Derm: Warm and dry - Extremities Extremities: No edema, No calf tenderness / cord - Neuro Neuro: Alert and oriented X 3 - Psych Psych: Normal mood, Normal affect Results - Vitals Vitals: Vital Signs - 24 hr 09/30/19 09/30/19 13:59 16:33 Temperature 36.5 C 36.4 C L Heart Rate 66 69 Respiratory 14 12 Rate Blood Pressure 155/92 H 138/89 H O2 Saturation 98 99 Oxygen O2 Source Room air - Labs Labs: Laboratory Tests 09/30/19 09/30/19 09/30/19 14:15 14:25 14:25 WBC 5.6 RBC 4.18 L Hgb 12.4 Hct 37.7 MCV 90.2 MCH 29.7 MCHC 32.9 RDW 12.6 Plt Count 309 MPV 9.3 Neut # (Auto) 2.6 Lymph # (Auto) 2.3 [place] # (Auto) 0.6 Eos # (Auto) 0.0 Baso # (Auto) 0.0 Absolute Nucleated RBC 0.00 Nucleated RBC % 0.0 Sodium 136 Potassium 3.9 Chloride 102 Carbon Dioxide 27 Anion Gap 7.0 BUN 11 Creatinine 0.6 Estimated GFR (MDRD) 122 Glucose 81 Calcium 9.1 Total Bilirubin 0.5 AST 29 ALT 40 Alkaline Phosphatase 69 Total Protein 6.9 Albumin 3.9 Globulin 3.0 Albumin/Globulin Ratio 1.3 Lipase 21 L Urine Color DK. ORANGE Urine Clarity CLOUDY Urine pH 6.5 Ur Specific [place] >=1.030 H Urine Protein Urine Glucose (UA) Urine Ketones TRACE Urine Occult Blood TRACE-INTA Urine Nitrite Urine Bilirubin NEGATIVE Urine Urobilinogen Ur Leukocyte Esterase Urine RBC 0-5 Urine WBC 6-10 H Ur Squamous Epith Cells MOD Squamous H Amorphous Sediment Moderate Urine Bacteria Moderate H Ur Microscopic Review INDICATED Urine Culture Comments NOT INDICATED Urine HCG, Qual NEGATIVE C. glabrata (PCR) C. krusei (PCR) Mee species DNA Chlam trachomat DNA PCR N.gonorrhoeae DNA (PCR) T. vaginalis (PCR) Bact Vaginosis (PCR) 09/30/19 09/30/19 16:00 16:00 WBC RBC Hgb Hct MCV MCH MCHC RDW Plt Count MPV Neut # (Auto) Lymph # (Auto) [place] # (Auto) Eos # (Auto) Baso # (Auto) Absolute Nucleated RBC Nucleated RBC % Sodium Potassium Chloride Carbon Dioxide Anion Gap BUN Creatinine Estimated GFR (MDRD) Glucose Calcium Total Bilirubin AST ALT Alkaline Phosphatase Total Protein Albumin Globulin Albumin/Globulin Ratio Lipase Urine Color Urine Clarity Urine pH Ur Specific [place] Urine Protein Urine Glucose (UA) Urine Ketones Urine Occult Blood Urine Nitrite Urine Bilirubin Urine Urobilinogen Ur Leukocyte Esterase Urine RBC Urine WBC Ur Squamous Epith Cells Amorphous Sediment Urine Bacteria Ur Microscopic Review Urine Culture Comments Urine HCG, Qual C. glabrata (PCR) NEGATIVE C. krusei (PCR) NEGATIVE Mee species DNA NEGATIVE Chlam trachomat DNA PCR NEGATIVE N.gonorrhoeae DNA (PCR) NEGATIVE T. vaginalis (PCR) NEGATIVE NEGATIVE Bact Vaginosis (PCR) NEGATIVE PD MEDICAL DECISION MAKING - ED course Complexity details: reviewed results, re-evaluated patient, considered differential, d/w patient ED course: Patient with what appears to be pelvic inflammatory disease. Given Rocephin and azithromycin here. Will place on doxycycline and pain medication for home. Counseled to use condoms for sexual activity and that her partner should be tested and treated as well. Patient counseled regarding signs and symptoms for which I believe and urgent re-evaluation would be necessary. Patient with good understanding of and agreement to plan and is comfortable going home at this time This document was made in part using voice recognition software. While efforts are made to proofread this document, sound alike and grammatical errors may occur. Departure - Departure Disposition: 01 Home, Self Care Clinical Impression: PID (acute pelvic inflammatory disease) Condition: Good Instructions: ED PID Follow-Up: Bibi Jade PA [Primary Care Provider] - Within 1 week Prescriptions: Doxycycline Hyclate 100 mg PO BID #28 capsule Oxycodone HCl/Acetaminophen [Percocet 5-325 mg Tablet] 1 - 2 each PO Q6H PRN #14 tablet PRN Reason: pain Comments: Return if you worsen. Follow-up with your doctor for further care. You were treated for gonorrhea and chlamydia today. Take all antibiotics until gone. Your partner should also be tested and treated. Do not drink alcohol or drive while on narcotic pain medicine. Note that many narcotic pain relievers also contain tylenol/acetaminophen. Please ensure that your total dose of acetaminophen from all sources does not exceed 3 grams (3000mg) per day. You may constipated on this medication, take a stool softener such as "Colace" twice a day while you are on it. Also recommend a [id number] laxative such as senna or MiraLAX any day that you do not have a bowel movement. If you received narcotic pain medication in the emergency department, do not drive or operate machinery for the next 24 hours. Discharge Date/Time: 09/30/19 16:49
[2019-09-30 16:34] VITALS: BP 138/89
[2019-09-30 17:56] LABS: CANDIDA GROUP DNA NEGATIVE (NEGATIVE); CANDIDA KRUSEI DNA NEGATIVE (NEGATIVE); TRICHOMONAS VAGINALIS DNA NEGATIVE (NEGATIVE)
[2019-09-30 18:37] LABS: TRICHOMONAS VAGINALIS DNA NEGATIVE (NEGATIVE)
== END 2019-09-30 16:49 | disposition home or self-care (01) ==
LOC: ED 13:46
DX: N73.9 Female pelvic inflammatory disease, unspecified (principal)
CPT/HCPCS: 36415; 80053; 81001; 81025; 83690; 85025; 87481; 87491; 87591; 87661; 87801; 96372; 99283; 99284; A9270; 81003; 87086

== ENCOUNTER 2020-03-12 08:00 | Outpatient (CLI) | payer OTHER | END 2020-03-12 23:59 | LOC: LAB.R 08:00 | PROVIDERS: ATTEND Physician Assistant | DX: N39.0 Urinary tract infection, site not specified (principal) | CPT/HCPCS: 87086 ==

== ENCOUNTER 2020-03-13 16:37 | Outpatient (CLI) | payer OTHER ==
--- NOTE | 2020-03-13 17:18 | CT Report ---
PROCEDURE: Abdomen/Pelvis WO INDICATIONS: ABD PAIN, RT FLANK TECHNIQUE: Noncontrast 5 mm thick sections acquired from the diaphragms to the symphysis. 5 mm coronal and sagi ttal reformats were then performed. For radiation dose reduction, the following was used: automated exposure control, adjustment of mA and/or kV according to patient size. COMPARISON: None. FINDINGS: Image quality: Excellent. ABDOMEN: Lung bases: Lung bases are clear. Heart size is normal. Solid organs: Liver and spleen are normal in size. Gallbladder appears normal Pancreas is normal i n contours. No adrenal nodules. Kidneys are normal in size, without hydronephrosis or nephrolithias is. Peritoneum and bowel: Unenhanced bowel loops demonstrate normal wall thickness and caliber. No free fluid or air. Nodes and vessels: No retroperitoneal or mesenteric adenopathy by size criteria. Aorta and inferior vena cava are normal in caliber. Miscellaneous: No ventral hernias. PELVIS: Genitourinary: Bladder wall thickness is normal. Miscellaneous: No inguinal hernias or adenopathy. Bones: No suspicious bony lesions. No vertebral body compression fractures. IMPRESSION: A urinary tract stone is not seen. Source of right-sided flank pain is not found. No hydronephrosis o r nephrolithiasis is present. No ureteral dilatation or inflammation is seen. A normal or abnormal appendix could not be located but no secondary CT evidence of acute appendicitis is found. Reviewed by: Huseyin Britt MD on 03/13/2020 5:16 PM PST Approved by: Huseyin Britt MD on 03/13/2020 5:16 PM PST Station ID: [id number]
== END 2020-03-13 16:38 | disposition home or self-care (01) ==
LOC: DI 16:37
PROVIDERS: ATTEND Physician Assistant
DX: R10.11 Right upper quadrant pain (principal)
CPT/HCPCS: 74176

== ENCOUNTER 2020-04-24 08:00 | Outpatient (CLI) | payer OTHER ==
[2020-04-24 22:35] LABS: TRICHOMONAS VAGINALIS DNA NEGATIVE (NEGATIVE)
== END 2020-04-24 23:59 ==
LOC: LAB.R 08:00
PROVIDERS: ATTEND Family Medicine
DX: Z11.3 Encounter for screening for infections with a predominantly sexual mode of transmission (principal)
CPT/HCPCS: 87491; 87591; 87661

== ENCOUNTER 2020-06-20 09:04 | Emergency (ER) | payer OTHER ==
[2020-06-20 09:30] LABS: BILIRUBIN,URINE NEGATIVE (NEGATIVE); CLARITY,URINE CLOUDY (CLEAR); GLUCOSE, URINE (UA) NEGATIVE (NEGATIVE); KETONES,URINE (UA) NEGATIVE (NEGATIVE); LEUKOCYTE ESTERASE, URINE LARGE (NEGATIVE); NITRITE,URINE POSITIVE (NEGATIVE); OCCULT BLOOD,URINE LARGE (NEGATIVE); PROTEIN,URINE 30 mg/dL (NEGATIVE); UROBILINOGEN,URINE 0.2 (NORMAL) E.U./dL (NORMAL)
[2020-06-20 09:31] LABS: HCG UR QUAL NEGATIVE
[2020-06-20 09:41] LABS: BACTERIA,URINE Moderate /HPF (None Seen); SQUAMOUS EPITHELIAL CELL,UR FEW Squamous (<= Few)
[2020-06-20 09:44] LABS: HGB - HEMOGLOBIN 13.8 g/dL (12.0-16.0); LYMPHOCYTES # (AUTO) 2.1 10^3/uL (1.5-3.5); LYMPHOCYTES % (AUTO) 30.3 %; MEAN CORPUSCULAR HEMOGLOBIN 30.2 pg (27.0-31.0); MEAN CORPUSCULAR HGB CONC 33.7 g/dL (32.0-36.0); MEAN CORPUSCULAR VOLUME 89.5 fL (81.0-99.0); MEAN PLATELET VOLUME 9.9 fL (7.9-10.8); MONOCYTES # (AUTO) 0.6 10^3/uL (0.0-1.0); MONOCYTES % (AUTO) 8.8 %; NEUTROPHILS # (AUTO) 4.2 10^3/uL (1.5-6.6); NEUTROPHILS % (AUTO) 60.6 %; PLT - PLATELET COUNT 278 10^3/uL (130-450); RED BLOOD COUNT 4.57 10^6/uL (4.20-5.40); RED CELL DISTRIBUTION WIDTH 12.6 % (12.0-15.0)
--- NOTE | 2020-06-20 09:44 | ED Physician Documentation ---
PD HPI FEMALE - Stated complaint Stated Complaint: FEMALE - Chief complaint Chief Complaint: Abd Pain - History obtained from History obtained from: Patient - Additional information Additional information: Patient comes emergency department complaining of abdominal pain, dysuria, and frequency, worsening over the last week. No fevers or chills. Pt has had back pain. Nausea, but no vomiting. Abdominal pain is a cramping feeling. No other complaints at this time. Review of Systems Ten Systems: 10 systems reviewed and negative Constitutional: reports: Reviewed and negative Eyes: reports: Reviewed and negative Ears: reports: Reviewed and negative Nose: reports: Reviewed and negative Throat: reports: Reviewed and negative Cardiac: reports: Reviewed and negative Respiratory: reports: Reviewed and negative GI: reports: Abdominal Pain, Nausea : reports: Dysuria, Frequency Skin: reports: Reviewed and negative Musculoskeletal: reports: Reviewed and negative Neurologic: reports: Reviewed and negative Psychiatric: reports: Reviewed and negative Endocrine: reports: Reviewed and negative Immunocompromised: reports: Reviewed and negative PD PAST MEDICAL HISTORY - Past Medical History Cardiovascular: None Respiratory: Asthma Neuro: None Endocrine/Autoimmune: None GI: 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, 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 : None HEENT: None Psych: Depression Musculoskeletal: None Derm: Eczema - Past Surgical History Past Surgical History: Yes HEENT: Tonsil/Adenoidectomy - Present Medications Home Medications: Ambulatory Orders Medication Instructions Recorded Confirmed Dicyclomine [Bentyl] 20 mg PO QID PRN #15 capsule 09/19/19 06/20/20 Ondansetron Odt [Zofran] 4 mg TL Q6H PRN #10 tab 06/20/20 Phenazopyridine HCl [Pyridium] 200 mg PO TID PRN #6 tab 06/20/20 Sulfamethox/Trimeth 800/160 1 each PO BID #14 tab 06/20/20 [Bactrim Ds 800/160] - Allergies Allergies/Adverse Reactions: Allergies Allergy/AdvReac Type Severity Reaction Status Date / Time steroids Allergy Unknown Uncoded 06/20/20 09:08 - Social History Does the pt smoke?: No Smoking Status: Never smoker Does the pt drink ETOH?: No Does the pt have substance abuse?: No - Immunizations Immunizations are current?: Yes Immunizations: TDAP current <10years - POLST Patient has POLST: No PD ED PE NORMAL - Vitals Vital signs reviewed: Yes - General General: Alert and oriented X 3, No acute distress, Well developed/nourished - HEENT HEENT: Atraumatic, PERRL, EOMI, Moist mucous membranes - Neck Neck: Supple, no meningeal sign - Cardiac Cardiac: RRR, No murmur, Strong equal pulses - Respiratory Respiratory: No respiratory distress, Clear bilaterally - Abdomen Abdomen: Soft, Non distended, Other (Diffuse moderate tenderness in lower abdomen. No rebound or guarding.) - Derm Derm: Normal color, Warm and dry, No rash - Extremities Extremities: No deformity, No edema, No calf tenderness / cord - Neuro Neuro: Alert and oriented X 3, pneumatic press hand 2-12 intact, Normal speech, Other (Otherwise grossly normal.) - Psych Psych: Normal mood, Normal affect Results - Vitals Vitals: Vital Signs - 24 hr 06/20/20 06/20/20 09:08 09:54 Temperature 36.5 C 37.3 C Heart Rate 67 60 Respiratory 16 16 Rate Blood Pressure 131/72 H 135/79 H O2 Saturation 96 97 Oxygen O2 Source Room air - Labs Labs: Laboratory Tests 06/20/20 06/20/20 06/20/20 09:15 09:29 09:29 WBC 7.0 RBC 4.57 Hgb 13.8 Hct 40.9 MCV 89.5 MCH 30.2 MCHC 33.7 RDW 12.6 Plt Count 278 MPV 9.9 Neut # (Auto) 4.2 Lymph # (Auto) 2.1 [place] # (Auto) 0.6 Eos # (Auto) 0.0 Baso # (Auto) 0.0 Absolute Nucleated RBC 0.00 Nucleated RBC % 0.0 Sodium 140 Potassium 3.6 Chloride 104 Carbon Dioxide 24 Anion Gap 12.0 BUN 11 Creatinine 0.6 Estimated GFR (MDRD) 122 Glucose 92 Calcium 9.4 Total Bilirubin 0.6 AST 23 ALT 33 Alkaline Phosphatase 74 Total Protein 7.0 Albumin 4.1 Globulin 2.9 Albumin/Globulin Ratio 1.4 Lipase 22 Urine Color YELLOW Urine Clarity CLOUDY Urine pH 6.0 Ur Specific [place] 1.025 Urine Protein 30 H Urine Glucose (UA) NEGATIVE Urine Ketones NEGATIVE Urine Occult Blood LARGE H Urine Nitrite POSITIVE H Urine Bilirubin NEGATIVE Urine Urobilinogen 0.2 (NORMAL) Ur Leukocyte Esterase LARGE H Urine RBC 6-10 H Urine WBC >25 H Ur Squamous Epith Cells FEW Squamous Urine Bacteria Moderate H Ur Microscopic Review INDICATED Urine Culture Comments INDICATED Urine HCG, Qual NEGATIVE PD MEDICAL DECISION MAKING - ED course Complexity details: reviewed results, re-evaluated patient, considered differential, d/w patient ED course: Patient was worked up with urinalysis, which was strongly positive for infection. She was given IV Zofran, Toradol, and Dilaudid 0.5 mg. She was given a p.o. dose of Bactrim. We have discussed home management of the symptoms, the need for antibiotics, and the usual indications for return. Departure - Departure Disposition: Home, Self Care Clinical Impression: Urinary tract infection Qualifiers: Urinary tract infection type: acute cystitis Hematuria presence: with hematuria Qualified Code(s): N30.01 - Acute cystitis with hematuria Condition: Stable Instructions: ED UTI Cystitis Female Prescriptions: Sulfamethox/Trimeth 800/160 [Bactrim Ds 800/160] 1 each PO BID #14 tab Phenazopyridine HCl [Pyridium] 200 mg PO TID PRN #6 tab PRN Reason: dysuria Ondansetron Odt [Zofran] 4 mg TL Q6H PRN #10 tab PRN Reason: Nausea / Vomiting Forms: Activity restrictions
[2020-06-20 09:46] LABS: ALBUMIN 4.1 g/dL (3.2-5.5); ALBUMIN/GLOBULIN RATIO 1.4 (1.0-2.2); BILIRUBIN,TOTAL 0.6 mg/dL (0.2-1.0); CALCIUM 9.4 mg/dL (8.5-10.3); CREATININE 0.6 mg/dL (0.4-1.0)
[2020-06-20] MEDS ORDERED: ONDANSETRON 4 MG/2 ML VIAL IVP STA (09:49)
[2020-06-20] MEDS ORDERED: HYDROmorphone 0.5 MG/0.5 ML SYRINGE IVP STA (09:49)
[2020-06-20] MEDS ORDERED: KETOROLAC 30 MG/ML VIAL IVP STA (09:49)
[2020-06-20] MEDS ORDERED: SULFAMETH/TRIMETH DS 800/160 MG TABLET PO STA (09:50)
[2020-06-20 09:57] VITALS: BP 135/79
== END 2020-06-20 10:50 | disposition home or self-care (01) ==
LOC: ED 09:04
DX: N30.01 Acute cystitis with hematuria (principal)
CPT/HCPCS: 36415; 80053; 81001; 81025; 83690; 85025; 87077; 87086; 87181; 96374; 99283; A9270; J1170; 81003

== ENCOUNTER 2020-07-09 16:42 | Emergency (ER) | payer OTHER ==
[2020-07-09] MEDS ORDERED: SODIUM CHLORIDE 0.9% 1,000 ML IV STA (17:04)
[2020-07-09] MEDS ORDERED: KETOROLAC 30 MG/ML VIAL IVP STA (17:04)
--- NOTE | 2020-07-09 17:05 | ED Physician Documentation ---
History of Present Illness - Stated complaint Stated Complaint: CP,FEVER - Chief complaint Chief Complaint: Cardiac - History obtained from History obtained from: Patient - Additonal information Additional information: She got sick 3 days ago, started with a sore throat which is not as bad anymore but then over the last 2 days has had substernal chest pain, mild cough, generally low-grade fevers with a T-max of 100.1, diffuse body aches, nausea, and headache. No sick contacts. Review of Systems Constitutional: reports: Fever, Chills, Myalgias, Fatigue Nose: denies: Rhinorrhea / runny nose Throat: reports: Sore throat Respiratory: reports: Cough (mild). 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 : None HEENT: None Psych: Depression Musculoskeletal: None Derm: Eczema - Past Surgical History Past Surgical History: Yes HEENT: Tonsil/Adenoidectomy - Present Medications Home Medications: Ambulatory Orders Medication Instructions Recorded Confirmed Ibuprofen [Motrin] 800 mg PO Q8H PRN #30 tablet 07/09/20 - Allergies Allergies/Adverse Reactions: Allergies Allergy/AdvReac Type Severity Reaction Status Date / Time steroids Allergy Unknown Uncoded 07/09/20 16:45 - Social History Does the pt smoke?: No Smoking Status: Never smoker Does the pt drink ETOH?: No Does the pt have substance abuse?: No - Immunizations Immunizations are current?: Yes Immunizations: TDAP current <10years - POLST Patient has POLST: No PD ED PE NORMAL - Vitals Vital signs reviewed: Yes - General General: Alert and oriented X 3, No acute distress - HEENT HEENT: PERRL, EOMI - Neck Neck: Supple, no meningeal sign, No bony TTP - Cardiac Cardiac: RRR, No murmur - Respiratory Respiratory: No respiratory distress, Clear bilaterally - Abdomen Abdomen: Normal bowel sounds, Soft, Non tender - Back Back: No CVA TTP, No spinal TTP - Derm Derm: Normal color, Warm and dry - Extremities Extremities: No edema, No calf tenderness / cord - Neuro Neuro: Alert and oriented X 3, Normal speech Results - Vitals Vitals: Vital Signs - 24 hr 07/09/20 07/09/20 16:45 17:11 Temperature 36.2 C L Heart Rate 90 81 Respiratory 20 12 Rate Blood Pressure 116/79 116/92 H O2 Saturation 96 98 Oxygen O2 Source Room air - EKG (time done) 1649 Rate: Rate (enter#) (86) Rhythm: NSR [place]: Normal Intervals: Normal [place] QRS: Normal Ischemia: Normal ST segments - Labs Labs: Laboratory Tests 07/09/20 07/09/20 07/09/20 17:05 17:05 17:05 WBC 6.9 RBC 4.78 Hgb 14.1 Hct 42.9 MCV 89.7 MCH 29.5 MCHC 32.9 RDW 12.4 Plt Count 314 MPV 9.5 Neut # (Auto) 3.9 Lymph # (Auto) 2.3 [place] # (Auto) 0.7 Eos # (Auto) 0.0 Baso # (Auto) 0.0 Absolute Nucleated RBC 0.00 Nucleated RBC % 0.0 Sodium 135 Potassium 3.4 L Chloride 100 L Carbon Dioxide 24 Anion Gap 11.0 BUN 12 Creatinine 0.5 Estimated GFR (MDRD) 150 Glucose 107 H Calcium 9.5 Total Bilirubin 0.8 AST 26 ALT 59 Alkaline Phosphatase 98 Troponin I High Sens 2.9 Total Protein 7.4 Albumin 4.3 Globulin 3.1 Albumin/Globulin Ratio 1.4 Lipase 18 L - Rads (name of study) 1v chest Radiology: EMP read contemporaneously (NAD) PD MEDICAL DECISION MAKING - ED course ED course: 24-year-old woman who presents with substernal nonradiating chest pain, but ancillary complaints are consistent with a viral syndrome. Will check for coronavirus and discussed need for quarantine. Departure - Departure Disposition: 01 Home, Self Care Clinical Impression: Viral syndrome Chest pain Qualifiers: Chest pain type: unspecified Qualified Code(s): R07.9 - Chest pain, unspecified Condition: Good Record reviewed to determine appropriate education?: Yes Instructions: ED Viral Syndrome Prescriptions: Ibuprofen [Motrin] 800 mg PO Q8H PRN #30 tablet PRN Reason: PAIN &/OR FEVER Comments: As discussed, the chest pain does not seem to be from anything serious, and given your other symptoms it is most likely part of a larger a viral syndrome. There are many viruses that cause similar symptoms but coronavirus is one of them. You have a Covid test pending. You need to self quarantine until the result is done and negative. Do not leave your house. Do not get near anybody. The results should be done in 48 to 72 hours. We will call with a positive result, the fastest way to get a negative result for confirmation though is to go to the hospital website at [email or web address], click on the my [employer] tab and sign up for the patient portal. If any friends or family get sick and would like to have a Covid test done, but do not have signs or symptoms that would necessitate being hospitalized, we encourage testing through our coronavirus swabbing station, call [phone] to schedule an appointment.
[2020-07-09 17:15] LABS: BASOPHILS % (AUTO) 0.1 %; HCT - HEMATOCRIT 42.9 % (37.0-47.0); HGB - HEMOGLOBIN 14.1 g/dL (12.0-16.0); LYMPHOCYTES # (AUTO) 2.3 10^3/uL (1.5-3.5); LYMPHOCYTES % (AUTO) 33.1 %; MEAN CORPUSCULAR HEMOGLOBIN 29.5 pg (27.0-31.0); MEAN CORPUSCULAR HGB CONC 32.9 g/dL (32.0-36.0); MEAN CORPUSCULAR VOLUME 89.7 fL (81.0-99.0); MEAN PLATELET VOLUME 9.5 fL (7.9-10.8); MONOCYTES # (AUTO) 0.7 10^3/uL (0.0-1.0); MONOCYTES % (AUTO) 9.8 %; NEUTROPHILS # (AUTO) 3.9 10^3/uL (1.5-6.6); NEUTROPHILS % (AUTO) 56.7 %; PLT - PLATELET COUNT 314 10^3/uL (130-450); RED BLOOD COUNT 4.78 10^6/uL (4.20-5.40); RED CELL DISTRIBUTION WIDTH 12.4 % (12.0-15.0); WHITE BLOOD COUNT 6.9 x10^3/uL (4.8-10.8)
--- NOTE | 2020-07-09 17:27 | XRAY Report ---
PROCEDURE: Chest 1 View X-Ray INDICATIONS: Chest Pain TECHNIQUE: One view of the chest was acquired. COMPARISON: CT abdomen/pelvis 03/13/2020 FINDINGS: Surgical changes and devices: None. Lungs and pleura: No pleural effusions or pneumothorax. Lungs are clear. Mediastinum: Mediastinal contours appear normal. Heart size is normal. Bones and chest wall: No suspicious bony lesions. Overlying soft tissues appear unremarkable. IMPRESSION: Normal for age, source of current symptoms is not seen. Reviewed by: Huseyin Britt MD on 07/09/2020 4:[address] [facility] Approved by: Huseyin Britt MD on 07/09/2020 4:[address] [facility] Station ID: [id number]
[2020-07-09 17:28] LABS: ALBUMIN 4.3 g/dL (3.2-5.5); ALBUMIN/GLOBULIN RATIO 1.4 (1.0-2.2); BILIRUBIN,TOTAL 0.8 mg/dL (0.2-1.0); CALCIUM 9.5 mg/dL (8.5-10.3); CREATININE 0.5 mg/dL (0.4-1.0); POTASSIUM 3.4 mmol/L (3.5-5.0); TOTAL PROTEIN 7.4 g/dL (6.7-8.2)
[2020-07-09 17:50] VITALS: BP 121/79
== END 2020-07-09 17:53 | disposition home or self-care (01) ==
LOC: ED 16:42
DX: R07.89 Other chest pain (principal); B34.9 Viral infection, unspecified; Z20.822 Contact with and (suspected) exposure to COVID-19
CPT/HCPCS: 36415; 80053; 83690; 84484; 85025; 93005; 96374; 99284

== ENCOUNTER 2020-08-02 21:11 | Emergency (ER) | payer OTHER ==
[2020-08-02 21:26] VITALS: BP 124/75
[2020-08-02 21:36] LABS: GLUCOSE, URINE (UA) 100 mg/dL (NEGATIVE); KETONES,URINE (UA) TRACE mg/dL (NEGATIVE); LEUKOCYTE ESTERASE, URINE MODERATE (NEGATIVE); NITRITE,URINE POSITIVE (NEGATIVE); OCCULT BLOOD,URINE LARGE (NEGATIVE); PH,URINE 6.5 PH (5.0-7.5)
[2020-08-02 21:39] LABS: BILIRUBIN,URINE NEGATIVE (NEGATIVE); CLARITY,URINE SL. CLOUDY (CLEAR); HCG UR QUAL NEGATIVE; ICTOTEST,URINE NEGATIVE
[2020-08-02 21:44] LABS: BACTERIA,URINE Many /HPF (None Seen); SQUAMOUS EPITHELIAL CELL,UR NONE SEEN (<= Few); WBC,URINE >25 /HPF (0-5)
--- NOTE | 2020-08-02 22:30 | ED Physician Documentation ---
PD HPI FEMALE - Stated complaint Stated Complaint: F - Chief complaint Chief Complaint: UTI - History obtained from History obtained from: Patient - History of Present Illness Timing - onset: How many days ago (3) Timing - duration: Days (3) Timing - details: Intermittant Pain level max: 8 Associated symptoms: Fever (Tmax 101), Dysuria, Urinary frequency. No: Back pain, Vaginal discharge Contributing factors: No: Similar symptoms before: Diagnosis (similar to previous UTIs) Recently seen: Not recently seen - Additional information Additional information: c/o 3 days of burning dysuria (both during and after urination), with burning discomfort radiating to suprapubic region, associated with urinary frequency. She had fever earlier today to a Tmax of 101 with chills and myalgias. Review of Systems Constitutional: reports: Fever, Myalgias GI: reports: Nausea. denies: Abdominal Pain (except suprapubic burning sensation associated with (and after) urination), Vomiting : reports: Frequency. 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 HEENT: None Psych: Depression Musculoskeletal: None Derm: Eczema Other Past Medical History: UTI - Past Surgical History Past Surgical History: Yes HEENT: Tonsil/Adenoidectomy - Present Medications Home Medications: Ambulatory Orders Medication Instructions Recorded Confirmed Ciprofloxacin HCl [Cipro] 500 mg PO BID #14 tablet 08/02/20 Phenazopyridine HCl [Pyridium] 200 mg PO TID PRN #6 tablet 08/02/20 - Allergies Allergies/Adverse Reactions: Allergies Allergy/AdvReac Type Severity Reaction Status Date / Time steroids Allergy Unknown Uncoded 08/02/20 21:18 - Social History Does the pt smoke?: No Smoking Status: Never smoker Does the pt drink ETOH?: No Does the pt have substance abuse?: No - Immunizations Immunizations are current?: Yes Immunizations: TDAP current <10years - POLST Patient has POLST: No PD ED PE NORMAL - Vitals Vital signs reviewed: Yes - General General: Alert and oriented X 3, No acute distress, Well developed/nourished - Abdomen Abdomen: Soft, Non tender PD ED PE EXPANDED - Back Back: CVA TTP right (mild) Results - Vitals Vitals: Vital Signs - 24 hr 08/02/20 21:15 Temperature 37.1 C Heart Rate 78 Respiratory 16 Rate Blood Pressure 124/75 O2 Saturation 99 Oxygen O2 Source Room air - Labs Labs: Laboratory Tests 08/02/20 21:22 Urine Color ORANGE Urine Clarity SL. CLOUDY Urine pH 6.5 Ur Specific [place] 1.020 Urine Protein Urine Glucose (UA) 100 H Urine Ketones TRACE Urine Occult Blood LARGE H Urine Nitrite POSITIVE H Urine Bilirubin NEGATIVE Urine Urobilinogen Ur Leukocyte Esterase MODERATE H Urine RBC 11-25 H Urine WBC >25 H Ur Squamous Epith Cells NONE SEEN Urine Bacteria Many H Ur Microscopic Review INDICATED Urine Culture Comments INDICATED Urine HCG, Qual NEGATIVE PD MEDICAL DECISION MAKING - ED course Complexity details: considered differential, d/w patient ED course: patient with symptoms s/o UTI and UA results c/w UTI as well. afebrile in ED although she says she had measured fever earlier today of 101, and she has mild right CVA tenderness; early pyelonephritis is a concern and thus will treat with cipro (as opposed to macrobid for simple UTI). Departure - Departure Disposition: 01 Home, Self Care Clinical Impression: Cystitis Condition: Good Instructions: ED UTI Cystitis Female Prescriptions: Ciprofloxacin HCl [Cipro] 500 mg PO BID #14 tablet Phenazopyridine HCl [Pyridium] 200 mg PO TID PRN #6 tablet PRN Reason: dysuria Forms: Activity restrictions Discharge Date/Time: 08/02/20 23:03
[2020-08-02] MEDS ORDERED: CIPROFLOXACIN 250 MG TABLET PO STA (22:45)
[2020-08-02] MEDS ORDERED: PHENAZOPYRIDINE 100 MG TABLET PO STA (22:49)
--- OUTSIDE RECORDS SUMMARY | 2020-08-08 01:24 | EXTERNAL MEDICAL SUMMARY RPT | Continuity of Care Document ---
:1995 Demographics Phone Unavailable Preferred Language Unknown Marital Status Unknown Yazidi Affiliation Unknown Race Unknown Ethnic Group Unknown Author Organization [facility] Address [address] [place] [address] Phone Social History date description facility [phone]
== END 2020-08-02 23:03 | disposition home or self-care (01) ==
LOC: ED 21:11
DX: N30.90 Cystitis, unspecified without hematuria (principal)
CPT/HCPCS: 81001; 81025; 87077; 87086; 87181; 99283; A9270; 81003

== ENCOUNTER 2020-08-16 05:24 | Emergency (ER) | payer OTHER ==
--- OUTSIDE RECORDS SUMMARY | 2020-08-16 05:28 | EXTERNAL MEDICAL SUMMARY RPT | Continuity of Care Document ---
:1995 Demographics Phone Unavailable Preferred Language Unknown Marital Status Unknown Confucianism Affiliation Unknown Race Unknown Ethnic Group Unknown Author Organization [facility] Address [address] [place] [address] Phone Social History date description facility [phone]
--- OUTSIDE RECORDS SUMMARY | 2020-08-16 05:31 | EXTERNAL MEDICAL SUMMARY RPT | Continuity of Care Document ---
:1995 Demographics Phone Unavailable Preferred Language Unknown Marital Status Unknown Hindu Affiliation Unknown Race Unknown Ethnic Group Unknown Author Organization [facility] Address [address] [place] [phone] Phone Social History date description facility [phone]
[2020-08-16 05:40] VITALS: BP 133/77
[2020-08-16] MEDS ORDERED: ONDANSETRON ODT 4 MG TABLET TL STA (06:16)
[2020-08-16] MEDS ORDERED: IBUPROFEN 600 MG TABLET PO STA (06:16)
--- NOTE | 2020-08-16 06:19 | ED Physician Documentation ---
PD HPI URI - Stated complaint Stated Complaint: FEVER/CHEST WALL PX - Chief complaint Chief Complaint: Fever - History obtained from History obtained from: Patient - Additional information Additional information: Had second covid shot 3 days ago. Since then body aches, stomach cramps, L arm/chest wall/axillary pain, fever. Also has runny nose, but thinks that is d/t allergies. No urinary complaints, no cough. Review of Systems Constitutional: reports: Fever, Chills, Myalgias Nose: reports: Rhinorrhea / runny nose Throat: denies: Sore throat Cardiac: reports: Chest pain / pressure (L chest wall pain radiating from axilla/arm where she got the shot) Respiratory: denies: Dyspnea, Cough GI: reports: Abdominal Pain, Nausea. 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 : Other HEENT: None Psych: Depression Musculoskeletal: None Derm: Eczema - Past Surgical History Past Surgical History: Yes HEENT: Tonsil/Adenoidectomy - Allergies Allergies/Adverse Reactions: Allergies Allergy/AdvReac Type Severity Reaction Status Date / Time steroids Allergy Unknown Uncoded 08/16/20 05:42 - Social History Does the pt smoke?: No Smoking Status: Never smoker Does the pt drink ETOH?: No Does the pt have substance abuse?: No - Immunizations Immunizations are current?: Yes Immunizations: TDAP current <10years - POLST Patient has POLST: No PD ED PE NORMAL - Vitals Vital signs reviewed: Yes - General General: Alert and oriented X 3, No acute distress - HEENT HEENT: Pharynx benign - Neck Neck: Supple, no meningeal sign, No bony TTP - Cardiac Cardiac: RRR, No murmur - Respiratory Respiratory: No respiratory distress, Clear bilaterally - Abdomen Abdomen: Soft, Non tender - Back Back: No CVA TTP, No spinal TTP - Derm Derm: Normal color, Warm and dry - Extremities Extremities: No edema, No calf tenderness / cord - Neuro Neuro: Alert and oriented X 3, Normal speech Results - Vitals Vitals: Vital Signs - 24 hr 08/16/20 08/16/20 05:31 05:40 Temperature 37.4 C 37.4 C Heart Rate 78 78 Respiratory 18 18 Rate Blood Pressure 133/77 H 133/77 H O2 Saturation 99 99 Oxygen O2 Source Room air - Rads (name of study) 2v chest Radiology: EMP read contemporaneously (NAD) PD MEDICAL DECISION MAKING - ED course ED course: I suspect her symptoms are related to persistent side effects from her second coronavirus vaccine, that said the rhinorrhea would be atypical for that and a Covid test is done. Otherwise just symptomatic care. Departure - Departure Disposition: Home, Self Care Clinical Impression: Viral syndrome Condition: Good Record reviewed to determine appropriate education?: Yes Instructions: ED Viral Syndrome Comments: As discussed, my suspicion is that your persistent symptoms are related to the Covid vaccine, that said given the runny nose, although likely due to allergies, is concerning. Return for new or worsening symptoms, otherwise you should be better in the next day or 2. If not better in 48 hours please return for reevaluation. You have a Covid test pending. You need to self quarantine until the result is done and negative. Do not leave your house. Do not get near anybody. The results should be done in 48 to 72 hours. We will call with a positive result, the fastest way to get a negative result for confirmation though is to go to the hospital website at [email or web address], click on the my [email or web address] tab and sign up for the patient portal. If any friends or family get sick and would like to have a Covid test done, but do not have signs or symptoms that would necessitate being hospitalized, we encourage testing through our coronavirus swabbing station, call [phone] to schedule an appointment. Forms: Activity restrictions
--- NOTE | 2020-08-16 12:50 | XRAY Report ---
PROCEDURE: Chest 2 View X-Ray INDICATIONS: cp TECHNIQUE: 2 view(s) of the chest. COMPARISON: Chest x-ray 07/09/2020 FINDINGS: Surgical changes and devices: None. Lungs and pleura: No pleural effusions or pneumothorax. Lungs are clear. Mediastinum: Mediastinal contours are normal. Heart size is normal. Bones and chest wall: No suspicious bony abnormalities. Soft tissues appear unremarkable. IMPRESSION: No acute pulmonary process. The above findings are concordant with preliminary report. Reviewed by: Dolores Rodriguez MD on 08/16/2020 12:49 PM PDT Approved by: Dolores Rodriguez MD on 08/16/2020 12:49 PM PDT Station ID: [id number]
== END 2020-08-16 06:35 | disposition home or self-care (01) ==
LOC: ED 05:24
DX: B34.9 Viral infection, unspecified (principal); R07.89 Other chest pain; J34.89 Other specified disorders of nose and nasal sinuses; Z20.822 Contact with and (suspected) exposure to COVID-19
CPT/HCPCS: 71046; 87635; 93005; 99283; A9270; Q0162

== ENCOUNTER 2020-09-12 08:00 | Outpatient (CLI) | payer OTHER | END 2020-09-12 23:59 | disposition home or self-care (01) | LOC: LAB.N 08:00 | PROVIDERS: ATTEND Family Medicine | DX: R05 Cough (principal); Z20.822 Contact with and (suspected) exposure to COVID-19 ==

== ENCOUNTER 2020-09-12 18:25 | Outpatient (CLI) | payer OTHER ==
--- NOTE | 2020-09-13 10:19 | XRAY Report ---
PROCEDURE: Chest 2 View X-Ray INDICATIONS: PRODUCTIVE COUGH TECHNIQUE: 2 view(s) of the chest. COMPARISON: 08/16/2020 chest x-ray FINDINGS: Surgical changes and devices: None. Lungs and pleura: No pleural effusions or pneumothorax. Lungs are clear. Mediastinum: Mediastinal contours are normal. Heart size is normal. Bones and chest wall: No suspicious bony abnormalities. Soft tissues appear unremarkable. IMPRESSION: No acute process. Reviewed by: Haycinth Hernandez MD on 09/13/2020 10:18 AM PDT Approved by: Hyacinth Hernandez MD on 09/13/2020 10:18 AM PDT Station ID: [id number]
== END 2020-09-12 23:59 | disposition home or self-care (01) ==
LOC: DI.N 18:25
PROVIDERS: ATTEND Family Medicine
DX: R05 Cough (principal); Z20.822 Contact with and (suspected) exposure to COVID-19

== ENCOUNTER 2020-09-14 16:14 | Emergency (ER) | payer OTHER ==
[2020-09-14 16:40] LABS: GLUCOSE, URINE (UA) NEGATIVE (NEGATIVE); KETONES,URINE (UA) TRACE mg/dL (NEGATIVE); LEUKOCYTE ESTERASE, URINE SMALL (NEGATIVE); NITRITE,URINE POSITIVE (NEGATIVE); OCCULT BLOOD,URINE LARGE (NEGATIVE); PH,URINE 6.5 PH (5.0-7.5); PROTEIN,URINE 100 mg/dL (NEGATIVE); UROBILINOGEN,URINE 2 E.U./dL (NORMAL)
[2020-09-14 16:43] LABS: BILIRUBIN,URINE SMALL (NEGATIVE); CLARITY,URINE CLOUDY (CLEAR); ICTOTEST,URINE POSITIVE
[2020-09-14 16:44] LABS: HCT - HEMATOCRIT 40.3 % (37.0-47.0); HGB - HEMOGLOBIN 13.4 g/dL (12.0-16.0); LYMPHOCYTES # (AUTO) 1.6 10^3/uL (1.5-3.5); LYMPHOCYTES % (AUTO) 21.5 %; MEAN CORPUSCULAR HGB CONC 33.3 g/dL (32.0-36.0); MEAN CORPUSCULAR VOLUME 90.4 fL (81.0-99.0); MEAN PLATELET VOLUME 9.6 fL (7.9-10.8); MONOCYTES # (AUTO) 0.4 10^3/uL (0.0-1.0); MONOCYTES % (AUTO) 5.6 %; NEUTROPHILS # (AUTO) 5.6 10^3/uL (1.5-6.6); NEUTROPHILS % (AUTO) 72.6 %; PLT - PLATELET COUNT 299 10^3/uL (130-450); RED BLOOD COUNT 4.46 10^6/uL (4.20-5.40); RED CELL DISTRIBUTION WIDTH 12.5 % (12.0-15.0); WHITE BLOOD COUNT 7.6 x10^3/uL (4.8-10.8)
[2020-09-14 16:47] LABS: AMORPHOUS SEDIMENT,UR Rare /LPF; BACTERIA,URINE Many /HPF (None Seen); MUCUS,URINE Few Strands; SQUAMOUS EPITHELIAL CELL,UR FEW Squamous (<= Few)
[2020-09-14 16:55] LABS: HCG UR QUAL NEGATIVE
[2020-09-14 16:57] LABS: ALBUMIN 4.8 g/dL (3.2-5.5); ALBUMIN/GLOBULIN RATIO 1.7 (1.0-2.2); BILIRUBIN,TOTAL 0.9 mg/dL (0.2-1.0); CALCIUM 9.5 mg/dL (8.5-10.3); CREATININE 0.6 mg/dL (0.4-1.0); POTASSIUM 3.8 mmol/L (3.5-5.0); TOTAL PROTEIN 7.6 g/dL (6.7-8.2)
[2020-09-14] MEDS ORDERED: PHENAZOPYRIDINE 100 MG TABLET PO STA (17:00)
[2020-09-14] MEDS ORDERED: CEFPODOXIME PROXETIL 100 MG TABLET PO STA (17:00)
--- NOTE | 2020-09-14 17:00 | ED Physician Documentation ---
PD HPI ABD PAIN - Stated complaint Stated Complaint: FEMALE - Chief complaint Chief Complaint: Abd Pain - History obtained from History obtained from: Patient (25-year-old sexually active woman has relatively frequent UTIs, almost monthly. Last few cultures have grown pansensitive E. coli. She is never seen a urologist for further work-up. 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 HEENT: None Psych: Depression Musculoskeletal: None Derm: Eczema - Past Surgical History Past Surgical History: Yes HEENT: Tonsil/Adenoidectomy - Present Medications Home Medications: Ambulatory Orders Medication Instructions Recorded Confirmed Cefdinir 300 mg PO BID #20 cap 09/14/20 Phenazopyridine HCl [Pyridium] 200 mg PO TID PRN #6 tablet 09/14/20 - Allergies Allergies/Adverse Reactions: Allergies Allergy/AdvReac Type Severity Reaction Status Date / Time steroids Allergy Unknown Uncoded 08/16/20 05:42 - Social History Does the pt smoke?: No Smoking Status: Never smoker Does the pt drink ETOH?: No Does the pt have substance abuse?: No - Immunizations Immunizations are current?: Yes Immunizations: TDAP current <10years - POLST Patient has POLST: No PD ED PE NORMAL - Vitals Vital signs reviewed: Yes - General General: Alert and oriented X 3, No acute distress - HEENT HEENT: PERRL, EOMI - Neck Neck: No bony TTP - Abdomen Abdomen: Soft, Non tender - Back Back: Other (Mild right CVA tenderness) - Derm Derm: Normal color, Warm and dry - Neuro Neuro: Alert and oriented X 3, Normal speech Results - Vitals Vitals: Vital Signs - 24 hr 09/14/20 16:19 Temperature 37.1 C Heart Rate 102 H Respiratory 17 Rate Blood Pressure 123/100 H O2 Saturation 100 Oxygen O2 Source Room air - Labs Labs: Laboratory Tests 09/14/20 09/14/20 09/14/20 16:31 16:31 16:38 WBC 7.6 RBC 4.46 Hgb 13.4 Hct 40.3 MCV 90.4 MCH 30.0 MCHC 33.3 RDW 12.5 Plt Count 299 MPV 9.6 Neut # (Auto) 5.6 Lymph # (Auto) 1.6 [place] # (Auto) 0.4 Eos # (Auto) 0.0 Baso # (Auto) 0.0 Absolute Nucleated RBC 0.00 Nucleated RBC % 0.0 Sodium Potassium Chloride Carbon Dioxide Anion Gap BUN Creatinine Estimated GFR (MDRD) Glucose Calcium Total Bilirubin AST ALT Alkaline Phosphatase Total Protein Albumin Globulin Albumin/Globulin Ratio Lipase Urine Color ORANGE Urine Clarity CLOUDY Urine pH 6.5 Ur Specific [place] 1.015 Urine Protein 100 H Urine Glucose (UA) NEGATIVE Urine Ketones TRACE Urine Occult Blood LARGE H Urine Nitrite POSITIVE H Urine Bilirubin SMALL H Urine Urobilinogen 2 H Ur Leukocyte Esterase SMALL H Urine RBC 11-25 H Urine WBC 6-10 H Ur Squamous Epith Cells FEW Squamous Amorphous Sediment Rare Urine Bacteria Many H Urine Mucus Few Strands Ur Microscopic Review INDICATED Urine Culture Comments INDICATED Urine HCG, Qual NEGATIVE 09/14/20 16:38 WBC RBC Hgb Hct MCV MCH MCHC RDW Plt Count MPV Neut # (Auto) Lymph # (Auto) [place] # (Auto) Eos # (Auto) Baso # (Auto) Absolute Nucleated RBC Nucleated RBC % Sodium 140 Potassium 3.8 Chloride 107 Carbon Dioxide 23 Anion Gap 10.0 BUN 16 Creatinine 0.6 Estimated GFR (MDRD) 121 Glucose 101 H Calcium 9.5 Total Bilirubin 0.9 AST 18 ALT 26 Alkaline Phosphatase 65 Total Protein 7.6 Albumin 4.8 Globulin 2.8 Albumin/Globulin Ratio 1.7 Lipase 20 L Urine Color Urine Clarity Urine pH Ur Specific [place] Urine Protein Urine Glucose (UA) Urine Ketones Urine Occult Blood Urine Nitrite Urine Bilirubin Urine Urobilinogen Ur Leukocyte Esterase Urine RBC Urine WBC Ur Squamous Epith Cells Amorphous Sediment Urine Bacteria Urine Mucus Ur Microscopic Review Urine Culture Comments Urine HCG, Qual Departure - Departure Disposition: Home, Self Care Clinical Impression: Pyelonephritis Condition: Good Record reviewed to determine appropriate education?: Yes Instructions: Pyelonephritis Dc Prescriptions: Cefdinir 300 mg PO BID #20 cap Phenazopyridine HCl [Pyridium] 200 mg PO TID PRN #6 tablet PRN Reason: dysuria Comments: As discussed, given the frequency of your UTIs you probably should follow-up with a urologist. The closest is in [place]. Contact info: Jada Herrera MD, FACS [facility] [address] [place] [phone] P: We will culture your urine, the results should be done in 48-72 hours. If an antibiotic change is necessary we will call you. Return if worse in the meantime, especially if you develop increasing flank pain, fevers, or cannot keep down the medication.
[2020-09-14 17:10] VITALS: BP 139/80
== END 2020-09-14 17:08 | disposition home or self-care (01) ==
LOC: ED 16:14
DX: N12 Tubulo-interstitial nephritis, not specified as acute or chronic (principal)
CPT/HCPCS: 36415; 80053; 81001; 81025; 83690; 85025; 87077; 87086; 87181; 99283; A9270; 81003

== ENCOUNTER 2020-11-28 15:53 | Emergency (ER) | payer SELFPAY ==
--- NOTE | 2020-11-28 16:48 | ED Physician Documentation ---
PD HPI FEMALE - Stated complaint Stated Complaint: FEMALE - Chief complaint Chief Complaint: Abd Pain - History obtained from History obtained from: Patient - Additional information Additional information: Patient comes emergency department chief complaint of pelvic pain and vaginal discharge for the last 6 days. Patient states that she has a history of several kinds of ovarian cysts, And that last week, she felt a sudden pain in her left pelvic area. She states that some hours later, she had a sudden gush of clear vaginal discharge that is nonmalodorous. She states she has had gushes of discharge on and off since this initial occurrence. She denies itching or burning. No fevers or chills. No dysuria, though patient does get frequent urinary tract infections. However, she states this does not feel like 1. No other complaints at this time. Patient does note that she is sexually monogamous with her boyfriend. She believes he is sexually monogamous as well. She has had chlamydia distantly, but was treated for this. Review of Systems Ten Systems: 10 systems reviewed and negative Constitutional: reports: Reviewed and negative Eyes: reports: Reviewed and negative Ears: reports: Reviewed and negative Nose: reports: Reviewed and negative Throat: reports: Reviewed and negative Cardiac: reports: Reviewed and negative Respiratory: reports: Reviewed and negative GI: reports: Abdominal Pain, Reviewed and negative : reports: Discharge Skin: reports: Reviewed and negative Musculoskeletal: reports: Reviewed and negative Neurologic: reports: Reviewed and negative Psychiatric: reports: Reviewed and negative Endocrine: reports: Reviewed and negative Immunocompromised: reports: Reviewed and negative PD PAST MEDICAL HISTORY - Past Medical History Cardiovascular: None Respiratory: Asthma Neuro: None Endocrine/Autoimmune: None GI: GERD, Ulcers 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 : Other HEENT: None Psych: Depression Musculoskeletal: None Derm: Eczema - Past Surgical History Past Surgical History: Yes HEENT: Tonsil/Adenoidectomy - Present Medications Home Medications: Ambulatory Orders Medication Instructions Recorded Confirmed Cefdinir 300 mg PO BID #20 cap 09/14/20 Phenazopyridine HCl [Pyridium] 200 mg PO TID PRN #6 tablet 09/14/20 metroNIDAZOLE [Flagyl] 500 mg PO BID #14 tablet 11/28/20 - Allergies Allergies/Adverse Reactions: Allergies Allergy/AdvReac Type Severity Reaction Status Date / Time steroids Allergy Unknown Uncoded 11/28/20 16:17 - Social History Does the pt smoke?: No Smoking Status: Never smoker Does the pt drink ETOH?: No Does the pt have substance abuse?: No - Immunizations Immunizations are current?: Yes Immunizations: TDAP current <10years - POLST Patient has POLST: No PD ED PE NORMAL - Vitals Vital signs reviewed: Yes - General General: Alert and oriented X 3, No acute distress - HEENT HEENT: Atraumatic, PERRL, EOMI, Moist mucous membranes - Neck Neck: Supple, no meningeal sign - Cardiac Cardiac: RRR, No murmur - Respiratory Respiratory: No respiratory distress, Clear bilaterally - Abdomen Abdomen: Soft, Non distended, Other (Mild, suprapubic and left lower quadrant, no rebound or guarding.) - Female Female : Other (Copious thick, nonviscous, yellow discharge noted in vaginal canal. Mild cervical motion and right adnexal tenderness; moderate left adnexal tenderness, no rebound or guarding. No mass.) - Derm Derm: Normal color, Warm and dry, No rash - Extremities Extremities: No deformity - Neuro Neuro: Alert and oriented X 3, document control associate 2-12 intact, Normal speech - Psych Psych: Normal mood, Normal affect Results - Vitals Vitals: Vital Signs - 24 hr 11/28/20 16:12 Temperature 36.8 C Heart Rate 84 Respiratory 14 Rate Blood Pressure 124/79 O2 Saturation 97 Oxygen O2 Source Room air - Labs Labs: Laboratory Tests 11/28/20 16:02 HCG, Quant < 0.60 - Rads (name of study) Pelvic ultrasound Radiology: Prelim report reviewed, See rad report (neg) PD MEDICAL DECISION MAKING - ED course Complexity details: reviewed results, re-evaluated patient, considered d ifferential, d/w patient ED course: Patient was worked up with urinalysis and ultrasound of pelvis, As well as wet mount and GC chlamydia swabs which are pending at time. I discussed with the patient that given her cervical motion and adnexal tenderness, as well as her copious discharge, I am concerned for PID and that regardless of the etiology or circumstances, I think the patient should be treated for this. She has been given high-dose Rocephin and also dose of high-dose Zithromax in the emergency department. She states she does not have the money to get medications right now so I have opted for a complete single dose regimen. I discussed with the patient that her wet mount may end up showing bacterial vaginosis and if it does, she will need to take Flagyl as well. I have given her prescription for this and I will notify her on her cell phone number if this comes back positive. We have discussed that she will need to have her partner tested if her GC chlamydia test come back and that they should not have sexual intercourse until she knows if she has gonorrhea or chlamydia. Departure - Departure Disposition: 01 Home, Self Care Clinical Impression: Pelvic inflammatory disease (PID) Condition: Stable Instructions: ED PID Prescriptions: metroNIDAZOLE [Flagyl] 500 mg PO BID #14 tablet Comments: Your ultrasound looks good. At this point in time, given the amount and appearance of your discharge, as well as the tenderness throughout your pelvic structures, your findings are concerning for pelvic inflammatory disease, a widespread infection of the pelvic organs that is most commonly caused by sexually transmitted infections. Occasionally, an overgrowth of your natural bacteria can cause this as well but this is less common. You have been given high-dose, single dose antibiotics in the emergency department today, as you have stated you will not be able to afford your antibiotics as an outpatient. At this point in time, a test for other types of infection is pending. If any of this comes back positive, you will be notified on your cell phone to fill the other prescription that you have been given. Please do not have any sexual intercourse until we get all of your results back from your vaginal swabs today, which will be about 3 days from now. If you are positive for gonorrhea or chlamydia, you will need to have any recent sexual partners treated before further sexual contact.
[2020-11-28] MEDS ORDERED: cefTRIAXone 1 GM VIAL IM STA (17:37)
[2020-11-28] MEDS ORDERED: LIDOCAINE 1% 2 ML VIAL MC ONE (17:38)
[2020-11-28] MEDS ORDERED: AZITHROMYCIN 250 MG TABLET PO STA (17:38)
--- NOTE | 2020-11-28 17:50 | Ultrasound Report ---
PROCEDURE: Pelvic w/Doppler Limited INDICATIONS: PELVIC PAIN R TECHNIQUE: Real-time transabdominal scanning was performed of the pelvic organs, with image documentation. COMPARISON: None. FINDINGS: Uterus: Uterus is normal in size at 7.2 x 3.1 x 4.4 cm. Endometrium measures 9.1 mm in combined thi ckness. Ovaries: The right ovary measures 3.4 x 1.9 x 4.2 cm. There is a dominant follicle measuring 1.3 cm. The left ovary measures 2.9 x 1.6 x 2.0 cm. No solid masses. Both ovaries demonstrate normal vascula rity with no evidence of torsion. Other: No free pelvic fluid. IMPRESSION: No acute abnormality of the pelvis. No evidence of ovarian torsion. Jossie Reviewed by: Luis Dawkins on 11/28/2020 5:48 PM PDT Approved by: Luis Dawkins on 11/28/2020 5:48 PM PDT Station ID: [id number]
[2020-11-28 18:27] LABS: BILIRUBIN,URINE NEGATIVE (NEGATIVE); GLUCOSE, URINE (UA) NEGATIVE (NEGATIVE); KETONES,URINE (UA) NEGATIVE (NEGATIVE); LEUKOCYTE ESTERASE, URINE NEGATIVE (NEGATIVE); NITRITE,URINE NEGATIVE (NEGATIVE); OCCULT BLOOD,URINE MODERATE (NEGATIVE); PH,URINE 7.5 PH (5.0-7.5); PROTEIN,URINE NEGATIVE (NEGATIVE); UROBILINOGEN,URINE 0.2 (NORMAL) E.U./dL (NORMAL)
[2020-11-28 18:30] LABS: CLARITY,URINE CLEAR (CLEAR)
[2020-11-28 18:37] LABS: BACTERIA,URINE Rare /HPF (None Seen); MUCUS,URINE Few Strands; SQUAMOUS EPITHELIAL CELL,UR FEW Squamous (<= Few); WBC,URINE 0-3 /HPF (0-5)
[2020-11-28 18:39] VITALS: BP 120/78
[2020-11-28 21:02] LABS: CHLAMYDIA TRACHOMATIS DNA NEGATIVE (NEGATIVE); NEISSERIA GONORRHOEAE DNA NEGATIVE (NEGATIVE); TRICHOMONAS VAGINALIS DNA NEGATIVE (NEGATIVE)
== END 2020-11-28 18:39 | disposition home or self-care (01) ==
LOC: ED 15:53
DX: N73.9 Female pelvic inflammatory disease, unspecified (principal)
CPT/HCPCS: 36415; 76856; 81001; 84702; 87210; 87491; 87591; 87661; 93976; 96372; 99284; A9270; 81003; 87086

== ENCOUNTER 2020-12-07 15:35 | Emergency (ER) | payer SELFPAY ==
[2020-12-07 16:02] LABS: BILIRUBIN,URINE NEGATIVE (NEGATIVE); GLUCOSE, URINE (UA) NEGATIVE (NEGATIVE); KETONES,URINE (UA) NEGATIVE (NEGATIVE); LEUKOCYTE ESTERASE, URINE NEGATIVE (NEGATIVE); NITRITE,URINE NEGATIVE (NEGATIVE); OCCULT BLOOD,URINE LARGE (NEGATIVE); PROTEIN,URINE TRACE mg/dL (NEGATIVE); UROBILINOGEN,URINE 0.2 (NORMAL) E.U./dL (NORMAL)
[2020-12-07 16:05] LABS: CLARITY,URINE HAZY (CLEAR); HCG UR QUAL NEGATIVE
[2020-12-07 16:06] LABS: BASOPHILS % (AUTO) 0.1 %; HCT - HEMATOCRIT 37.8 % (37.0-47.0); HGB - HEMOGLOBIN 12.8 g/dL (12.0-16.0); LYMPHOCYTES # (AUTO) 3.1 10^3/uL (1.5-3.5); LYMPHOCYTES % (AUTO) 37.6 %; MEAN CORPUSCULAR HEMOGLOBIN 30.5 pg (27.0-31.0); MEAN CORPUSCULAR HGB CONC 33.9 g/dL (32.0-36.0); MONOCYTES # (AUTO) 0.6 10^3/uL (0.0-1.0); MONOCYTES % (AUTO) 7.5 %; NEUTROPHILS # (AUTO) 4.4 10^3/uL (1.5-6.6); NEUTROPHILS % (AUTO) 54.6 %; PLT - PLATELET COUNT 278 10^3/uL (130-450); RED CELL DISTRIBUTION WIDTH 12.4 % (12.0-15.0); WHITE BLOOD COUNT 8.1 x10^3/uL (4.8-10.8)
[2020-12-07 16:14] LABS: WBC,URINE 0-3 /HPF (0-5)
[2020-12-07 16:15] LABS: ALBUMIN 4.2 g/dL (3.2-5.5); ALBUMIN/GLOBULIN RATIO 1.4 (1.0-2.2); BACTERIA,URINE Few /HPF (None Seen); BILIRUBIN,TOTAL 0.6 mg/dL (0.2-1.0); CALCIUM 8.9 mg/dL (8.5-10.3); CREATININE 0.6 mg/dL (0.4-1.0); MUCUS,URINE Moderate Strands; POTASSIUM 3.6 mmol/L (3.5-5.0); SQUAMOUS EPITHELIAL CELL,UR RARE Squamous (<= Few); TOTAL PROTEIN 7.2 g/dL (6.7-8.2)
--- NOTE | 2020-12-07 16:21 | ED Physician Documentation ---
History of Present Illness - Stated complaint Stated Complaint: N/V STOMACH PX - Chief complaint Chief Complaint: Abd Pain - Additonal information Additional information: 25-year-old female presents emergency department for evaluation of 2 days nausea vomiting and diarrhea. She reports that she has been having upper abdominal pain. Also reports urinary frequency without dysuria. She was seen here 1 week ago for lower pelvic pain and vaginal discharge and treated empirically for PID with ceftriaxone and azithromycin + flagyl. pt reportedly could not afford the doxycycline. GC and trich were negative as well as the wet prep Review of Systems Constitutional: denies: Fever, Chills Eyes: reports: Reviewed and negative Throat: reports: Reviewed and negative Cardiac: reports: Reviewed and negative Respiratory: reports: Reviewed and negative GI: reports: Abdominal Pain, Nausea, Vomiting, Diarrhea : reports: Frequency. 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 : Other HEENT: None Psych: Depression Musculoskeletal: None Derm: Eczema - Past Surgical History Past Surgical History: Yes HEENT: Tonsil/Adenoidectomy - Present Medications Home Medications: Ambulatory Orders Medication Instructions Recorded Confirmed Doxycycline Hyclate 100 mg PO BID #20 12/07/20 Ondansetron Odt [Zofran] 4 mg TL Q6H PRN #10 tablet 12/07/20 - Allergies Allergies/Adverse Reactions: Allergies Allergy/AdvReac Type Severity Reaction Status Date / Time steroids Allergy Unknown Uncoded 12/07/20 15:40 - Social History Does the pt smoke?: No Smoking Status: Never smoker Does the pt drink ETOH?: No Does the pt have substance abuse?: No - Immunizations Immunizations are current?: Yes Immunizations: TDAP current <10years - POLST Patient has POLST: No PD ED PE NORMAL - General General: Alert and oriented X 3, No acute distress - Neck Neck: Supple, no meningeal sign, No bony TTP, No adenopathy, Thyroid normal - Cardiac Cardiac: RRR, No murmur - Respiratory Respiratory: No respiratory distress, Clear bilaterally - Abdomen Abdomen: Normal bowel sounds, Soft. No: Non tender (Mild tenderness to the left upper and lower quadrant without guarding or rebound. Negative Silva's negative McBurney's.) - Female Female : Staff Command And Control Officer present (Copious amount of thin yellow discharge seen exiting the cervix and within the vaginal vault. There is mild amount of CMT. No adnexal tenderness.), Other - Derm Derm: Normal color, Warm and dry - Extremities Extremities: No deformity - Neuro Neuro: Alert and oriented X 3 Eye Opening: Spontaneous Motor: Obeys Commands Verbal: Oriented GCS Score: 15 Results - Vitals Vitals: Vital Signs - 24 hr 12/07/20 12/07/20 15:41 17:43 Temperature 36.8 C 36.8 C Heart Rate 71 65 Respiratory 18 14 Rate Blood Pressure 129/58 L 124/78 O2 Saturation 98 100 Oxygen O2 Source Room air - Labs Labs: Laboratory Tests 12/07/20 12/07/20 12/07/20 15:50 15:50 15:50 WBC 8.1 RBC 4.20 Hgb 12.8 Hct 37.8 MCV 90.0 MCH 30.5 MCHC 33.9 RDW 12.4 Plt Count 278 MPV 10.0 Neut # (Auto) 4.4 Lymph # (Auto) 3.1 [place] # (Auto) 0.6 Eos # (Auto) 0.0 Baso # (Auto) 0.0 Absolute Nucleated RBC 0.00 Nucleated RBC % 0.0 Sodium 138 Potassium 3.6 Chloride 105 Carbon Dioxide 24 Anion Gap 9.0 BUN 12 Creatinine 0.6 Estimated GFR (MDRD) 121 Glucose 107 H Calcium 8.9 Total Bilirubin 0.6 AST 14 ALT 15 Alkaline Phosphatase 60 Total Protein 7.2 Albumin 4.2 Globulin 3.0 Albumin/Globulin Ratio 1.4 Lipase 24 Urine Color YELLOW Urine Clarity HAZY Urine pH 6.0 Ur Specific Browns 1.025 Urine Protein TRACE Urine Glucose (UA) NEGATIVE Urine Ketones NEGATIVE Urine Occult Blood LARGE H Urine Nitrite NEGATIVE Urine Bilirubin NEGATIVE Urine Urobilinogen 0.2 (NORMAL) Ur Leukocyte Esterase NEGATIVE Urine RBC 6-10 H Urine WBC 0-3 Ur Squamous Epith Cells RARE Squamous Urine Bacteria Few Urine Mucus Moderate Strands Ur Microscopic Review INDICATED Urine Culture Comments NOT INDICATED Urine HCG, Qual NEGATIVE - Rads (name of study) Abd/pelvis Radiology: Final report received (there is generalized infiltrative changes seen in the pelvis. no abscess seen. normal appendix. no bowel obstruction) PD MEDICAL DECISION MAKING - ED course Complexity details: reviewed results, re-evaluated patient, d/w patient, d/w foreign law consultant (Javier) ED course: 25-year-old female comes to the emergency department with left-sided abdominal pain nausea vomiting and diarrhea. She is seen in the ER about 1 week ago and found to have PID. She could not afford the doxycycline and thus took only azithromycin Rocephin and Flagyl. Screening labs today are essentially unremarkable. We do note some blood in her urine she is not on her menses. Patient denies any history of similar. CT abdomen pelvis does show inflammation within the pelvic region but no abscess formation. I did repeat a pelvic exam and she continues to have a copious amount of thin yellow discharge with a small amount of cervical motion tenderness. This was a chaperoned exam. Briefly discussed the case with on-call OB Dr. Herrera. This time she would recommend repeating the ceftriaxone and azithromycin here in the emergency department and prescribing her Doxy for 10 days. Attempt follow-up with OB. Emergent return precautions were discussed for worsening symptoms. Departure - Departure Disposition: 01 Home, Self Care Clinical Impression: PID (acute pelvic inflammatory disease) Condition: Stable Record reviewed to determine appropriate education?: Yes Instructions: ED PID Follow-Up: [facility] [Provider Group] Prescriptions: Doxycycline Hyclate 100 mg PO BID #20 Ondansetron Odt [Zofran] 4 mg TL Q6H PRN #10 tablet PRN Reason: Nausea / Vomiting Comments: Medicine you were seen in the ER today for abdominal pain nausea and vomiting. Your screening labs are all essentially normal today. We did do the CT scan which does confirm inflammation in your lower pelvic region. This is consistent with the previously diagnosed pelvic inflammatory disease. We have remedicated you today in the emergency department with ceftriaxone and azithromycin. Please fill the prescription for the doxycycline and take twice daily for the next 10 days. I also prescribed some Zofran medication to help with nausea at home. I would like you to try and schedule follow-up with OB in about 2 weeks time after your antibiotics have been completed to ensure that your symptoms have resolved. If they are not resolving or worsening before then please return immediately to the ER for a second evaluation.
[2020-12-07] MEDS ORDERED: SODIUM CHLORIDE 0.9% 1,000 ML IV STA (16:23)
[2020-12-07] MEDS ORDERED: HYDROmorphone 1 MG/ML CARPUJECT IVP STA (16:23)
[2020-12-07] MEDS ORDERED: ONDANSETRON 4 MG/2 ML VIAL IVP STA (16:23)
[2020-12-07] MEDS ORDERED: IOPAMIDOL-300 100 ML VIAL ONE (16:36)
[2020-12-07] MEDS ORDERED: IOPAMIDOL-300 100 ML VIAL IVP ONE (16:53)
--- NOTE | 2020-12-07 17:40 | CT Report ---
PROCEDURE: Abdomen/Pelvis W INDICATIONS: n/b/d. recent treatment for PID CONTRAST: IV CONTRAST: Isovue 300 ml: 100 PO CONTRAST: *NO PO CONTRAST TECHNIQUE: After the administration of IV contrast, 5 mm thick sections acquired from the diaphragms to the symp hysis. 5 mm thick coronal and sagittal reformats were acquired. For radiation dose reduction, the f ollowing was used: automated exposure control, adjustment of mA and/or kV according to patient size. COMPARISON: None. FINDINGS: Image quality: Excellent. ABDOMEN: Lung bases: Lung bases are clear. Heart size is normal. Solid organs: Liver and spleen are normal in size and enhancement. Gallbladder is relatively collap sed at the time of this study. Biliary system is non dilated. Pancreas enhances normally. No adr enal nodules. Kidneys demonstrate normal size and enhancement, without hydronephrosis. Peritoneum and bowel: Bowel loops demonstrate normal wall thickness and caliber. No free fluid or a ir. A normal appendix is seen. Nodes and vessels: No retroperitoneal or mesenteric adenopathy by size criteria. Aorta and inferior vena cava are normal in size. Miscellaneous: No ventral hernias. PELVIS: Genitourinary: Bladder wall thickness is normal. Miscellaneous: Generalized inflammatory changes can be seen of the pelvis, yet without a focal fluid collection seen to suggest abscess. No inguinal hernias or adenopathy. Bones: No suspicious bony lesions. No vertebral body compression fractures. IMPRESSION: There is generalized infiltrative change seen of the pelvis. No abscess is seen. Normal appendix. No bowel obstruction. Reviewed by: Bob Christopher MD on 12/07/2020 4:39 PM LIN[place] Approved by: Bob Christopher MD on 12/07/2020 4:39 PM LINSE[place] Station ID: [id number]
[2020-12-07] MEDS ORDERED: cefTRIAXone 1 GM VIAL IVP STA (18:15)
[2020-12-07] MEDS ORDERED: DOXYCYCLINE 100 MG TABLET PO STA (18:16)
[2020-12-07] MEDS ORDERED: AZITHROMYCIN 250 MG TABLET PO STA (18:16)
[2020-12-07 18:56] VITALS: BP 120/72
[2020-12-07 20:46] LABS: BACTERIAL VAGINOSIS DNA NEGATIVE (NEGATIVE); CANDIDA GLABRATA DNA NEGATIVE (NEGATIVE); CANDIDA GROUP DNA NEGATIVE (NEGATIVE); CANDIDA KRUSEI DNA NEGATIVE (NEGATIVE); TRICHOMONAS VAGINALIS DNA NEGATIVE (NEGATIVE)
== END 2020-12-07 18:56 | disposition home or self-care (01) ==
LOC: ED 15:35
DX: N73.9 Female pelvic inflammatory disease, unspecified (principal); R11.2 Nausea with vomiting, unspecified; R19.7 Diarrhea, unspecified
CPT/HCPCS: 36415; 74177; 80053; 81001; 81025; 83690; 85025; 87481; 87661; 87801; 96361; 96374; 96375; 99283; 99284; A9270; J1170; Q9967; 81003; 87086

== ENCOUNTER 2020-12-11 11:28 | Emergency (ER) | payer SELFPAY ==
[2020-12-11 12:05] VITALS: BP 136/86
[2020-12-11 12:40] LABS: HCT - HEMATOCRIT 40.1 % (37.0-47.0); HGB - HEMOGLOBIN 13.6 g/dL (12.0-16.0); LYMPHOCYTES # (AUTO) 1.8 10^3/uL (1.5-3.5); LYMPHOCYTES % (AUTO) 21.8 %; MEAN CORPUSCULAR HEMOGLOBIN 30.4 pg (27.0-31.0); MEAN CORPUSCULAR HGB CONC 33.9 g/dL (32.0-36.0); MEAN CORPUSCULAR VOLUME 89.5 fL (81.0-99.0); MEAN PLATELET VOLUME 9.7 fL (7.9-10.8); MONOCYTES # (AUTO) 0.4 10^3/uL (0.0-1.0); MONOCYTES % (AUTO) 4.8 %; NEUTROPHILS # (AUTO) 6.1 10^3/uL (1.5-6.6); NEUTROPHILS % (AUTO) 73.2 %; PLT - PLATELET COUNT 320 10^3/uL (130-450); RED BLOOD COUNT 4.48 10^6/uL (4.20-5.40); RED CELL DISTRIBUTION WIDTH 12.1 % (12.0-15.0); WHITE BLOOD COUNT 8.4 x10^3/uL (4.8-10.8)
[2020-12-11 12:56] LABS: ALBUMIN 4.5 g/dL (3.2-5.5); ALBUMIN/GLOBULIN RATIO 1.7 (1.0-2.2); BILIRUBIN,TOTAL 0.8 mg/dL (0.2-1.0); CALCIUM 9.4 mg/dL (8.5-10.3); CREATININE 0.6 mg/dL (0.4-1.0); POTASSIUM 4.2 mmol/L (3.5-5.0); TOTAL PROTEIN 7.1 g/dL (6.7-8.2)
== END 2020-12-11 13:58 | disposition left against medical advice (07) ==
LOC: ED 11:28
DX: Z53.21 Procedure and treatment not carried out due to patient leaving prior to being seen by health care provider (principal)
CPT/HCPCS: 36415; 80053; 83690; 85025

== ENCOUNTER 2020-12-12 09:50 | Emergency (ER) | payer SELFPAY ==
--- NOTE | 2020-12-12 11:29 | ED Physician Documentation ---
PD HPI ABD PAIN - Stated complaint Stated Complaint: ABD PX - Chief complaint Chief Complaint: Abd Pain - History obtained from History obtained from: Patient - History of Present Illness Timing - onset: How many weeks ago (2) Timing - duration: Weeks (2) Timing - details: Gradual onset, Still present, Waxing and waning (worse pain and cramping the past day, more to LLQ area. Also with diarrhea BM large amount this morning. Has been on abx doxycycline for presumed PID. Not sure if the increased pain is from her PID or from the diarrhea or other.) Quality: Cramping, Aching, Pain Location: Suprapubic, LLQ Radiation: No: Left flank, Right flank Associated symptoms: Nausea, Diarrhea (the last 2 days, few times.). No: Fever, Vomiting, Constipation Similar symptoms before: No diagnosis (has had lower abd cramping pain with clinical exams c/w PID but PCR tests have resulted negative.) Recently seen: Emergency Dept Review of Systems Constitutional: denies: Fever, Chills Nose: denies: Rhinorrhea / runny nose, Congestion Throat: denies: Sore throat Respiratory: denies: Cough GI: reports: Abdominal Pain, Nausea, Diarrhea. denies: Abdominal Swelling, Vomiting : reports: Discharge (has diminished the past week since on most recent abx.). 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 : Other HEENT: None Psych: Depression Musculoskeletal: None Derm: Eczema - Past Surgical History Past Surgical History: Yes HEENT: Tonsil/Adenoidectomy - Present Medications Home Medications: Ambulatory Orders Medication Instructions Recorded Confirmed Doxycycline Hyclate 100 mg PO BID #20 12/07/20 Ondansetron Odt [Zofran] 4 mg TL Q6H PRN #10 tablet 12/07/20 HYDROcod/ACETAM 5/325 [[place] 5/325] 1 ea PO Q6H PRN #15 tablet 12/12/20 Loperamide [Imodium] 2 mg PO QID PRN #20 12/12/20 - Allergies Allergies/Adverse Reactions: Allergies Allergy/AdvReac Type Severity Reaction Status Date / Time steroids Allergy Unknown Uncoded 12/12/20 10:14 - Social History Does the pt smoke?: No Smoking Status: Never smoker Does the pt drink ETOH?: No Does the pt have substance abuse?: No - Immunizations Immunizations are current?: Yes Immunizations: TDAP current <10years - POLST Patient has POLST: No PD ED PE NORMAL - Vitals Vital signs reviewed: Yes - General General: Alert and oriented X 3, Well developed/nourished - Neck Neck: Supple, no meningeal sign, No adenopathy - Cardiac Cardiac: RRR, No murmur - Respiratory Respiratory: Clear bilaterally - Abdomen Abdomen: Normal bowel sounds, Soft, Non distended, No organomegaly, Other (tender LLQ and suprapubic area with some guarding. No rebound nor percussion tenderness. ) - Female Female : Deferred Results - Vitals Vitals: Vital Signs - 24 hr 12/12/20 12/12/20 10:11 14:00 Temperature 36.0 C L Heart Rate 79 68 Respiratory 16 19 Rate Blood Pressure 123/84 H 122/76 O2 Saturation 99 100 Oxygen O2 Source Room air PD MEDICAL DECISION MAKING - ED course Complexity details: reviewed old records (with clinically PID on exams. PCR tests have been negative. ), reviewed results Departure - Departure Disposition: 01 Home, Self Care Clinical Impression: Pelvic pain, Antibiotic-associated diarrhea Condition: Stable Record reviewed to determine appropriate education?: Yes Instructions: ED Pelvic Pain [facility], ED PID Follow-Up: Valencia Herrera MD [Provider Admit Priv/Credential] - Prescriptions: Loperamide [Imodium] 2 mg PO QID PRN #20 PRN Reason: Diarrhea HYDROcod/ACETAM 5/325 [[place] 5/325] 1 ea PO Q6H PRN #15 tablet PRN Reason: Pain Comments: Finish the antibiotics. Continue with Midol and/or ibuprofen for anti- inflammatory and for pains. Add Tylenol or hydrocodone if needed for worse pain. Use Imodium if needed for diarrhea. This likely is stemming from the current antibiotic use and should diminish once antibiotics are done. Some of your pain and cramps last night and today could relate to the diarrhea rather than pelvic inflammation at this point. Follow-up with gynecology in about a week, call today/tomorrow for an appointment. See how you do over the next several days. Return if severe again. Forms: Activity restrictions Discharge Date/Time: 12/12/20 14:10
[2020-12-12] MEDS ORDERED: HYDROcod/ACETAM 5/325 MG TABLET PO STA (11:51)
--- NOTE | 2020-12-12 14:04 | Ultrasound Report ---
PROCEDURE: Pelvic w/Transvag+Doppler Comp INDICATIONS: pelvic pain, recent Dx PID; persistent pain TECHNIQUE: Real-time scanning was performed of the pelvic organs, with image documentation. Additional endovagi nal scanning was necessary due to incomplete visualization of the adnexal and endometrial structures by transabdominal scanning. COMPARISON: Pelvic ultrasound 11/28/2020, CT abdomen pelvis 12/07/2020. FINDINGS: No pathologic free abdominal or pelvic fluid. Uterus: Uterus measures 8.7 x 3.5 x 5.6 cm. The endometrium measures 0.2 cm in combined thickness. Ovaries: The right ovary measures 3.7 x 2.2 x 2.1 cm and the left ovary measures 3.6 x 1.9 x 2.6 cm. A few scattered small peripheral follicles are noted in the ovaries. Patent arterial and venous flow demonstrated within each ovary. No adnexal masses identified. No evidence of a hydrosalpinx. IMPRESSION: 1. Normal sonographic study of the pelvis. No definite evidence of a hydrosalpinx or a tubo-ovarian a bscess. Reviewed by: Tristen Nielsen MD on 12/12/2020 2:03 PM PDT Approved by: Tristen Nielsen MD on 12/12/2020 2:03 PM PDT Station ID: [id number]
[2020-12-12 14:10] VITALS: BP 122/76
== END 2020-12-12 14:10 | disposition home or self-care (01) ==
LOC: ED 09:50
DX: R10.2 Pelvic and perineal pain (principal); K52.1 Toxic gastroenteritis and colitis; T36.95XA Adverse effect of unspecified systemic antibiotic, initial encounter
CPT/HCPCS: 76830; 76856; 93975; 99284; A9270

== ENCOUNTER 2021-01-18 11:41 | Emergency (ER) | payer SELFPAY ==
--- NOTE | 2021-01-18 12:00 | ED Physician Documentation ---
PD HPI FEMALE - Stated complaint Stated Complaint: FEMALE - Chief complaint Chief Complaint: UTI - History obtained from History obtained from: Patient - History of Present Illness Timing - onset: How many days ago (3) Timing - duration: Days (3) Timing - details: Gradual onset, Still present (worse since last night) Associated symptoms: Fever (subjective), Dysuria, Urinary frequency. 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: Ovarian cysts : Other HEENT: None Psych: Depression Musculoskeletal: None Derm: Eczema - Past Surgical History Past Surgical History: Yes HEENT: Tonsil/Adenoidectomy - Present Medications Home Medications: Ambulatory Orders Medication Instructions Recorded Confirmed Doxycycline Hyclate 100 mg PO BID #20 12/07/20 Ondansetron Odt [Zofran] 4 mg TL Q6H PRN #10 tablet 12/07/20 HYDROcod/ACETAM 5/325 [[place] 5/325] 1 ea PO Q6H PRN #15 tablet 12/12/20 Loperamide [Imodium] 2 mg PO QID PRN #20 12/12/20 cephALEXin [Keflex] 500 mg PO TID #20 cap 01/18/21 - Allergies Allergies/Adverse Reactions: Allergies Allergy/AdvReac Type Severity Reaction Status Date / Time steroids Allergy Unknown Uncoded 12/12/20 10:14 - Social History Does the pt smoke?: No Smoking Status: Never smoker Does the pt drink ETOH?: No Does the pt have substance abuse?: No - Immunizations Immunizations are current?: Yes Immunizations: TDAP current <10years - POLST Patient has POLST: No PD ED PE NORMAL - Vitals Vital signs reviewed: Yes - General General: Alert and oriented X 3, No acute distress, Well developed/nourished - Cardiac Cardiac: RRR, No murmur - Respiratory Respiratory: Clear bilaterally - Abdomen Abdomen: Soft, Non distended, Other (mild suprapubic tenderness without guarding. ) - Back Back: No CVA TTP - Derm Derm: Normal color, Warm and dry - Neuro Neuro: Alert and oriented X 3, No motor deficit, Normal speech Results - Vitals Vitals: Vital Signs - 24 hr 01/18/21 01/18/21 11:45 13:20 Temperature 36 C L Heart Rate 69 76 Respiratory 16 16 Rate Blood Pressure 120/68 116/71 O2 Saturation 95 99 Oxygen O2 Source Room air - Labs Labs: Laboratory Tests 01/18/21 12:02 Urine Color YELLOW Urine Clarity CLEAR Urine pH 6.0 Ur Specific [place] 1.025 Urine Protein NEGATIVE Urine Glucose (UA) NEGATIVE Urine Ketones NEGATIVE Urine Occult Blood LARGE H Urine Nitrite NEGATIVE Urine Bilirubin NEGATIVE Urine Urobilinogen 0.2 (NORMAL) Ur Leukocyte Esterase NEGATIVE Urine RBC 11-25 H Urine WBC 4-5 Ur Squamous Epith Cells MOD Squamous H Urine Bacteria Few Urine Mucus Few Strands Ur Microscopic Review INDICATED Urine Culture Comments NOT INDICATED Urine HCG, Qual NEGATIVE PD MEDICAL DECISION MAKING - ED course Complexity details: reviewed results (UA c/w UTI enough, to correlate with her symptoms. ), considered differential, d/w patient Departure - Departure Disposition: 01 Home, Self Care Clinical Impression: Cystitis, Dysuria Condition: Stable Record reviewed to determine appropriate education?: Yes Instructions: ED UTI Cystitis Female Prescriptions: cephALEXin [Keflex] 500 mg PO TID #20 cap Comments: Your urine test and symptoms are suggestive of bladder infection. We will treat it as such with cephalexin 3 times a day for a week. Continue Azo and Tylenol and lots of fluids at home. Recheck if not improved well over the next 2 to 3 days. Return if worse. Your prescription was transmitted to [facility]. Forms: Activity restrictions Discharge Date/Time: 01/18/21 13:20
[2021-01-18 12:16] LABS: BILIRUBIN,URINE NEGATIVE (NEGATIVE); GLUCOSE, URINE (UA) NEGATIVE (NEGATIVE); KETONES,URINE (UA) NEGATIVE (NEGATIVE); LEUKOCYTE ESTERASE, URINE NEGATIVE (NEGATIVE); NITRITE,URINE NEGATIVE (NEGATIVE); OCCULT BLOOD,URINE LARGE (NEGATIVE); PROTEIN,URINE NEGATIVE (NEGATIVE); UROBILINOGEN,URINE 0.2 (NORMAL) E.U./dL (NORMAL)
[2021-01-18] MEDS ORDERED: ONDANSETRON ODT 4 MG TABLET TL STA (12:16)
[2021-01-18] MEDS ORDERED: PHENAZOPYRIDINE 100 MG TABLET PO STA (12:16)
[2021-01-18] MEDS ORDERED: ACETAMINOPHEN 325 MG TABLET PO STA (12:16)
[2021-01-18 12:23] LABS: HCG UR QUAL NEGATIVE
[2021-01-18 12:37] LABS: CLARITY,URINE CLEAR (CLEAR)
[2021-01-18 12:38] LABS: BACTERIA,URINE Few /HPF (None Seen); SQUAMOUS EPITHELIAL CELL,UR MOD Squamous (<= Few)
[2021-01-18 12:39] LABS: MUCUS,URINE Few Strands
[2021-01-18] MEDS ORDERED: cephALEXin 250 MG CAPSULE PO STA (12:53)
[2021-01-18 13:21] VITALS: BP 116/71
== END 2021-01-18 13:20 | disposition home or self-care (01) ==
LOC: ED 11:41
DX: N30.90 Cystitis, unspecified without hematuria (principal)
CPT/HCPCS: 81001; 81025; 99283; 99284; A9270; Q0162; 81003; 87086

== ENCOUNTER 2021-01-22 13:24 | Emergency (ER) | payer SELFPAY ==
--- NOTE | 2021-01-22 14:25 | ED Physician Documentation ---
PD HPI FEMALE - Stated complaint Stated Complaint: FEMALE - Chief complaint Chief Complaint: Abd Pain - History obtained from History obtained from: Patient - History of Present Illness Associated symptoms: Abdominal pain, Pelvic pain, Vaginal bleeding. No: Fever, Chest/shoulder pain, Back pain, Vaginal pain, Vaginal discharge, Genital sore/lesion, Dysuria, Urinary frequency, Hematuria Contributing factors: control, Oral contraceptive, Condoms, Sexually active. No: , Depo, IUD, Tubal ligation, Hysterectomy, Not sexually active, Exposed to STD [employer] History: Ovarian cysts Similar symptoms before: Work up / diagnostics Recently seen: Emergency Dept - Additional information Additional information: 25 yo F presents w/ lower mid abd/pelvic pain for 2 days. She was seen a few days ago and dx'd w/ UTI and is taking abx for that. She no longer has dysuria/urg/freq. She has however started bleeding vaginally similar to a menstrual period though is a few days early. She is bleeding moderately heavy having soaked 4 super tampons today (over about 6-8 hours). She has a hx/o heavy and painful menses for the first 2-3 days then improves. She started on oral contraception 1-2 months ago for this and has noted no improvement. She was seen last month for similar sx and has a CT abd and pelvic US which were reassuring. She is sexually active w/ 1 partner and uses condoms. She has no dyspareunia. She has no concern for STI. She denies . She denies fever, chills, cough or URI sx, cp, dyspnea, vomiting, diarrhea, urinary sx, or vaginal discharge (other than menstrual bleeding). She is taking midol and tylenol w/o relief. Pt missed work today due to sx and needs note. Review of Systems Constitutional: reports: Reviewed and negative Eyes: reports: Reviewed and negative Ears: reports: Reviewed and negative Nose: reports: Reviewed and negative Throat: reports: Reviewed and negative Cardiac: reports: Reviewed and negative Respiratory: reports: Reviewed and negative GI: reports: Abdominal Pain. denies: Abdominal Swelling, Nausea, Vomiting, Constipation, Diarrhea, Hematemesis, Bloody / black stool : reports: Vaginal bleeding, Irregular menses, Control. denies: Dysuria, Frequency, Hesitancy, Unable to Void, Incontinent, Hematuria, Discharge, Missed period, Now EGA, Hysterectomy Skin: reports: Reviewed and negative Musculoskeletal: reports: Reviewed and negative Neurologic: reports: Reviewed and negative Psychiatric: reports: Reviewed and negative Endocrine: reports: Reviewed and negative Immunocompromised: reports: Reviewed and negative PD PAST MEDICAL HISTORY - Past Medical History Cardiovascular: None Respiratory: Asthma Neuro: None Endocrine/Autoimmune: None GI: GERD, Ulcers [employer]: Ovarian cysts : Other HEENT: None Psych: Depression Musculoskeletal: None Derm: Eczema - Past Surgical History Past Surgical History: Yes HEENT: Tonsil/Adenoidectomy - Present Medications Home Medications: Ambulatory Orders Medication Instructions Recorded Confirmed Ondansetron Odt [Zofran] 4 mg TL Q6H PRN #10 tablet 12/07/20 01/22/21 cephALEXin [Keflex] 500 mg PO TID #20 cap 01/18/21 01/22/21 - Allergies Allergies/Adverse Reactions: Allergies Allergy/AdvReac Type Severity Reaction Status Date / Time steroids Allergy Unknown Uncoded 01/22/21 13:35 - Social History Does the pt smoke?: No Smoking Status: Never smoker Does the pt drink ETOH?: No Does the pt have substance abuse?: No - Immunizations Immunizations are current?: Yes Immunizations: TDAP current <10years - POLST Patient has POLST: No PD ED PE NORMAL - Vitals Vital signs reviewed: Yes - General General: Alert and oriented X 3, No acute distress, Well developed/nourished - HEENT HEENT: Atraumatic, Moist mucous membranes - Neck Neck: Supple, no meningeal sign, No JVD - Cardiac Cardiac: RRR, No murmur - Respiratory Respiratory: No respiratory distress, Clear bilaterally - Abdomen Abdomen: Normal bowel sounds, Soft, Non tender, Non distended - Female Female : Career Center Director 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 small amt of uterine bleeding. no lesions. no friability, no strawberry cervix, no signs of cervicitis. ) - Back Back: No CVA TTP - Derm Derm: Normal color, Warm and dry, No rash - Neuro Neuro: Alert and oriented X 3, No motor deficit, No sensory deficit, Normal speech Eye Opening: Spontaneous Motor: Obeys Commands Verbal: Oriented GCS Score: 15 - Psych Psych: Normal mood, Normal affect Results - Vitals Vitals: Vital Signs - 24 hr 01/22/21 01/22/21 01/22/21 13:31 14:29 15:34 Temperature 36.9 C 37 C 36.4 C L Heart Rate 66 66 73 Respiratory 17 16 16 Rate Blood Pressure 115/66 120/72 113/71 O2 Saturation 99 98 100 Oxygen O2 Source Room air - Labs Labs: Laboratory Tests 01/22/21 14:50 Urine HCG, Qual NEGATIVE PD MEDICAL DECISION MAKING - ED course Complexity details: reviewed old records, reviewed results, re-evaluated patient, considered differential, d/w patient ED course: Pt presented w/ vaginal bleeding and pelvic pain. She has had similar sx with her menses regularly. She had a workup last month for same sx including abd ct and vagina us which were reassuring. Her upreg here today is negative. I sent gonorrhea/chlamydia test though low suspicion per history and exam. I suspect this is dysmenorrhea and do not think repeat scanning or testing is necessary today. She received toradol w/ some modest improvement in her pain. She was advised to continue supportive measures including nsaids, heating pad, avoiding caffeine, staying active an dwell hydrated. I encouraged her to fup w/ her java developer architect within 1-2 months to reassess. Continue OCPs as many period irregularities improve after 3-4 months of use. I reviewed return precautions w/ pt including fever vomiting, increased pain, or other new concerns. Departure - Departure Disposition: 01 Home, Self Care Clinical Impression: Vaginal bleeding, abnormal, Pelvic pain Condition: Good Instructions: ED Pelvic Pain [facility] Comments: You presented w/ lower abdominal pain and vaginal bleeding. Your pelvic exam was reassuring. Your STI panel is still pending but there is low suspicion for infection. Your test is negative. You had a pelvic ultrasound and CT scan last month and I don't think we need to repeat this at this time. Please co ntinue ibuprofen 800mg by mouth 3 times a day and avoid caffeine or other stimulants. Please schedule a follow up with a java developer architect as soon as possible. Continue control for now, but you may consider an IUD or other method of control if you have persistently heavy periods after being on the contraceptive pill for at least 3 months. Heavy bleeding w/ contraception usually improves after about 3 months. If you are changing > 2 pads/hour x 2 hours or does not improve in the next 1 week, return to the ER. Forms: Activity restrictions Discharge Date/Time: 01/22/21 15:44
[2021-01-22 15:07] LABS: HCG UR QUAL NEGATIVE
[2021-01-22] MEDS ORDERED: KETOROLAC 60 MG/2 ML VIAL IM STA (15:08)
[2021-01-22 15:34] VITALS: BP 113/71
[2021-01-22 22:56] LABS: CHLAMYDIA TRACHOMATIS DNA NEGATIVE (NEGATIVE); NEISSERIA GONORRHOEAE DNA NEGATIVE (NEGATIVE); TRICHOMONAS VAGINALIS DNA NEGATIVE (NEGATIVE)
== END 2021-01-22 15:44 | disposition home or self-care (01) ==
LOC: ED 13:24
DX: N93.9 Abnormal uterine and vaginal bleeding, unspecified (principal)
CPT/HCPCS: 81025; 87491; 87591; 87661; 96372; 99283

== ENCOUNTER 2021-02-04 21:01 | Emergency (ER) | payer SELFPAY ==
[2021-02-04] MEDS ORDERED: DEXAMETHASONE 10 MG/ML VIAL PO STA (22:43)
[2021-02-04] MEDS ORDERED: AMOX/CLAV 875 MG/125 MG TABLET PO STA (22:43)
[2021-02-04] MEDS ORDERED: CHERRY SYRUP 10 ML UDC PO ONE (22:43)
--- NOTE | 2021-02-04 22:46 | ED Physician Documentation ---
PD HPI HEENT - Stated complaint Stated Complaint: RAWLS/SINUS PRESSURE/FATIGUE - Chief complaint Chief Complaint: Heent - History obtained from History obtained from: Patient - History of Present Illness Timing - onset: How many days ago (6) Timing - duration: Days (6) Timing - details: Gradual onset, Still present Location: Sinuses, Nose, Throat Improves: Nothing Associated symptoms: Congestion, Rhinorrhea, Headache, Cough, Other (facial pain). No: Fever Similar symptoms before: Has not had sx before Recently seen: Not recently seen - Additional information Additional information: 25-year-old vaccinated female has developed nasal congestion and facial pressure as well as a mild cough and headache. Review of Systems Constitutional: denies: Fever Eyes: denies: Decreased vision Ears: reports: Ear pain Nose: reports: Rhinorrhea / runny nose, Congestion, Sinus pressure / pain Throat: reports: Sore throat Cardiac: denies: Chest pain / pressure, Palpitations Respiratory: reports: Cough. 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: Ovarian cysts : Other HEENT: None Psych: Depression Musculoskeletal: None Derm: Eczema - Past Surgical History Past Surgical History: Yes HEENT: Tonsil/Adenoidectomy - Present Medications Home Medications: Ambulatory Orders Medication Instructions Recorded Confirmed Amox/Clav 875/125 [Augmentin] 1 each PO Q12H #20 tablet 02/04/21 - Allergies Allergies/Adverse Reactions: Allergies Allergy/AdvReac Type Severity Reaction Status Date / Time steroids Allergy Unknown Uncoded 02/04/21 21:08 - Social History Does the pt smoke?: No Smoking Status: Never smoker Does the pt drink ETOH?: No Does the pt have substance abuse?: No - Immunizations Immunizations are current?: Yes Immunizations: TDAP current <10years - POLST Patient has POLST: No PD ED PE NORMAL - Vitals Vital signs reviewed: Yes (normal ) - General General: Alert and oriented X 3, No acute distress, Well developed/nourished - HEENT HEENT: Atraumatic, PERRL, EOMI, Other (left TM with minimal inflamation right is clear. pharynx with general erythema right tonsil swollen. bilat maxillary sinus point tenderness. ) - Neck Neck: Supple, no meningeal sign, No bony TTP - Cardiac Cardiac: RRR, No murmur - Respiratory Respiratory: No respiratory distress, Clear bilaterally - Abdomen Abdomen: Soft, Non tender - Back Back: No CVA TTP, No spinal TTP - Derm Derm: Normal color, Warm and dry, No rash - Extremities Extremities: No deformity, No edema - Neuro Neuro: Alert and oriented X 3, supervisor electrolytic tinning 2-12 intact, No motor deficit, No sensory deficit, Normal speech Eye Opening: Spontaneous Motor: Obeys Commands Verbal: Oriented GCS Score: 15 - Psych Psych: Normal mood, Normal affect Results - Vitals Vitals: Vital Signs - 24 hr 02/04/21 02/04/21 02/04/21 21:04 22:11 22:59 Temperature 36.3 C L 36.5 C 36.5 C Heart Rate 56 L 59 L 61 Respiratory 16 16 16 Rate Blood Pressure 117/63 118/64 115/62 O2 Saturation 96 97 98 Oxygen O2 Source Room air PD MEDICAL DECISION MAKING - ED course Complexity details: considered differential, d/w patient ED course: 25-year-old female with congestion and sinus pressure and a headache has maxillary sinusitis on examination. Her nose is swabbed for Covid. She is vaccinated. She is administered 10 mg of dexamethasone as well as Augmentin. We will place her on a course of Augmentin and expect recovery. Departure - Departure Disposition: 01 Home, Self Care Clinical Impression: Sinusitis Qualifiers: Sinusitis location: maxillary Chronicity: acute Recurrence: non-recurrent Qualified Code(s): J01.00 - Acute maxillary sinusitis, unspecified Condition: Stable Instructions: ED Sinusitis Abx Tx Follow-Up: [facility] [Provider Group] Prescriptions: Amox/Clav 875/125 [Augmentin] 1 each PO Q12H #20 tablet Comments: Today it appears you have a maxillary sinusitis which is a bacterial infection because we are in the Covid pandemic we have swabbed her nose for Covid and the results will be available in 2 days. Forms: Activity restrictions Discharge Date/Time: 02/04/21 22:59
[2021-02-04 23:00] VITALS: BP 115/62
== END 2021-02-04 22:59 | disposition home or self-care (01) ==
LOC: ED 21:01
DX: J01.00 Acute maxillary sinusitis, unspecified (principal); Z20.822 Contact with and (suspected) exposure to COVID-19
CPT/HCPCS: 87635; 99283; 99284; A9270

== ENCOUNTER 2021-02-12 19:19 | Emergency (ER) | payer SELFPAY ==
[2021-02-12 19:33] VITALS: BP 127/72
--- NOTE | 2021-02-12 19:42 | ED Physician Documentation ---
History of Present Illness - Stated complaint Stated Complaint: COUGH,CONGESTION - Chief complaint Chief Complaint: Resp - History obtained from History obtained from: Patient - History of Present Illness Timing: How many weeks ago (1) Pain level max: 5 Pain level now: 3 - Additonal information Additional information: Patient is a 25-year-old female who presents to the emergency department stating she has had rhinorrhea, nasal congestion and sore throat for the past week. Was seen here previously and diagnosed with a sinus infection, given dexamethasone and Augmentin. She states that her symptoms have not improved and she now has a dry cough. She has been vaccinated for Covid. Covid test was negative last week. She states occasionally she has dyspnea. Nothing makes it better or worse. Taking NyQuil and DayQuil without relief Review of Systems Ten Systems: 10 systems reviewed and negative Constitutional: reports: Fever. 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 : Other HEENT: None Psych: Depression Musculoskeletal: None Derm: Eczema - Past Surgical History Past Surgical History: Yes HEENT: Tonsil/Adenoidectomy - Present Medications Home Medications: Ambulatory Orders Medication Instructions Recorded Confirmed Albuterol Sulf [Ventolin Hfa 1 - 2 puffs INH Q4HR PRN #1 inhaler 02/12/21 Inhaler] Benzonatate [Tessalon] 200 mg PO TID PRN #30 cap 02/12/21 Cetirizine HCl/Pseudoephedrine 1 each PO BID PRN #30 ea 02/12/21 [Zyrtec-D Tablet] - Allergies Allergies/Adverse Reactions: Allergies Allergy/AdvReac Type Severity Reaction Status Date / Time steroids Allergy Unknown Uncoded 02/12/21 19:32 - Social History Does the pt smoke?: No Smoking Status: Never smoker Does the pt drink ETOH?: No Does the pt have substance abuse?: No - Immunizations Immunizations are current?: Yes Immunizations: TDAP current <10years - POLST Patient has POLST: No PD ED PE NORMAL - Vitals Vital signs reviewed: Yes - General General: Alert and oriented X 3, No acute distress, Well developed/nourished - HEENT HEENT: PERRL, Ears normal, Moist mucous membranes, Other (Cobblestoning in the posterior oropharynx. Otherwise normal exam. normal phonation. no trismus) - Neck Neck: Supple, no meningeal sign, No adenopathy - Cardiac Cardiac: RRR, Strong equal pulses - Respiratory Respiratory: No respiratory distress, Clear bilaterally - Abdomen Abdomen: Soft, Non tender, Non distended - Derm Derm: Warm and dry, No rash - Neuro Neuro: Alert and oriented X 3 - Psych Psych: Normal mood, Normal affect Results - Vitals Vitals: Vital Signs - 24 hr 02/12/21 02/12/21 02/12/21 19:29 20:06 20:20 Temperature 36.3 C L Heart Rate 73 70 Respiratory 14 15 18 Rate Blood Pressure 127/72 O2 Saturation 99 02/12/21 20:31 Temperature Heart Rate Respiratory 15 Rate Blood Pressure O2 Saturation Oxygen O2 Source Room air PD MEDICAL DECISION MAKING - ED course Complexity details: reviewed old records, considered differential, d/w patient ED course: 25-year-old female with what appears to be a viral upper respiratory infection. Will place on decongestants, cough medication and albuterol for home. Feels better after an albuterol treatment here. We will have her follow-up with her doctor as needed for further care. No indication for chest x-ray at this time. Patient counseled regarding signs and symptoms for which I believe and urgent re-evaluation would be necessary. Patient with good understanding of and agreement to plan and is comfortable going home at this time This document was made in part using voice recognition software. While efforts are made to proofread this document, sound alike and grammatical errors may occur. Departure - Departure Disposition: 01 Home, Self Care Clinical Impression: Viral URI with cough Condition: Good Instructions: ED Viral Syndrome Follow-Up: Provider,Other [Primary Care Provider] - As Needed Prescriptions: Albuterol Sulf [Ventolin Hfa Inhaler] 1 - 2 puffs INH Q4HR PRN #1 inhaler PRN Reason: Shortness Of Air/Wheezing Benzonatate [Tessalon] 200 mg PO TID PRN #30 cap PRN Reason: Cough Cetirizine HCl/Pseudoephedrine [Zyrtec-D Tablet] 1 each PO BID PRN #30 ea PRN Reason: nasal congestion Comments: [email or web address] [place]. Please follow-up with your doctor as needed for further care. This will likely last another week. Drink plenty of fluids and rest. Return if you worsen. Forms: Activity restrictions Discharge Date/Time: 02/12/21 20:32
[2021-02-12] MEDS ORDERED: ALBUTEROL 1 PUFF INH STA (20:00)
[2021-02-12] MEDS ORDERED: BENZONATATE 100 MG CAPSULE PO STA (20:00)
[2021-02-12] MEDS ORDERED: PSEUDOEPHEDRINE 30 MG TABLET PO STA (20:00)
== END 2021-02-12 20:32 | disposition home or self-care (01) ==
LOC: ED 19:19
DX: J06.9 Acute upper respiratory infection, unspecified (principal); B97.89 Other viral agents as the cause of diseases classified elsewhere; J45.909 Unspecified asthma, uncomplicated
CPT/HCPCS: 94640; 94664; 99283; 99284; A9270

== ENCOUNTER 2021-04-02 02:40 | Emergency (ER) | payer SELFPAY ==
[2021-04-02 02:50] VITALS: BP 134/82
--- NOTE | 2021-04-02 03:25 | ED Physician Documentation ---
PD HPI HEENT - Stated complaint Stated Complaint: SOA/COUGH - Chief complaint Chief Complaint: Resp - History obtained from History obtained from: Patient - Additional information Additional information: Isabeltient comes emergency department for chief complaint of cough for the last 2 to 3 days. She states that she has been coughing up clearish yellow sputum and that her chest hurts from coughing. No fevers or chills. She has had one episode of posttussive emesis. She has some mild nasal congestion. The patient is not a smoker but has used an albuterol inhaler for her frequent upper respiratory infections previously, and states this has been helpful. She does admit to being around people who smoke. The patient is vaccinated for Covid. Review of her records reveals that she has been on multiple courses of antibiotics over the past year with extensive numbers of emergency department visits for issues, sinusitis, and respiratory complaints. Review of Systems Ten Systems: 10 systems reviewed and negative Constitutional: reports: Reviewed and negative Eyes: reports: Reviewed and negative Ears: reports: Reviewed and negative Nose: reports: Rhinorrhea / runny nose, Congestion Throat: reports: Reviewed and negative Cardiac: reports: Chest pain / pressure Respiratory: reports: Cough GI: reports: Reviewed and negative : reports: Reviewed and negative Skin: reports: Reviewed and negative Musculoskeletal: reports: Reviewed and negative Neurologic: reports: Reviewed and negative Psychiatric: reports: Reviewed and negative Endocrine: reports: Reviewed and negative Immunocompromised: reports: Reviewed and negative PD PAST MEDICAL HISTORY - Past Medical History Cardiovascular: None Respiratory: Asthma Neuro: None Endocrine/Autoimmune: None GI: GERD, Ulcers 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 [employer]OOK: Ovarian cysts : Other HEENT: None Psych: Depression Musculoskeletal: None Derm: Eczema - Past Surgical History Past Surgical History: Yes HEENT: Tonsil/Adenoidectomy - Present Medications Home Medications: Ambulatory Orders Medication Instructions Recorded Confirmed Albuterol Sulf [Ventolin Hfa 1 - 2 puffs INH Q4HR PRN #1 inhaler 04/02/21 Inhaler] - Allergies Allergies/Adverse Reactions: Allergies Allergy/AdvReac Type Severity Reaction Status Date / Time steroids Allergy Unknown Uncoded 04/02/21 02:50 - Social History Does the pt smoke?: No Smoking Status: Never smoker Does the pt drink ETOH?: No Does the pt have substance abuse?: No - Immunizations Immunizations are current?: Yes Immunizations: TDAP current <10years - POLST Patient has POLST: No PD ED PE NORMAL - Vitals Vital signs reviewed: Yes - General General: Alert and oriented X 3, No acute distress, Well developed/nourished - HEENT HEENT: Atraumatic, PERRL, EOMI, Moist mucous membranes - Neck Neck: Supple, no meningeal sign - Cardiac Cardiac: RRR, No murmur, Strong equal pulses - Respiratory Respiratory: No respiratory distress, Clear bilaterally, Other (Intermittent, congested sounding cough) - Abdomen Abdomen: Soft, Non tender, Non distended - Derm Derm: Normal color, Warm and dry, No rash - Extremities Extremities: No deformity, No edema - Neuro Neuro: Alert and oriented X 3, 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, Normal speech, Other (Grossly intact) - Psych Psych: Normal mood, Normal affect Results - Vitals Vitals: Vital Signs - 24 hr 04/02/21 04/02/21 02:40 03:02 Temperature 36.8 C 36.8 C Heart Rate 100 100 Respiratory 20 20 Rate Blood Pressure 134/82 H 134/82 H O2 Saturation 98 98 Oxygen O2 Source Room air - Rads (name of study) Chest x-ray Radiology: Final report received, EMP read indepedently, See rad report (Negat donald) PD MEDICAL DECISION MAKING - ED course Complexity details: reviewed results, re-evaluated patient, considered differential, d/w patient ED course: I discussed with the patient that her oxygen saturations are excellent and her chest x-ray is negative. Additionally, right now her lungs are clear. The p atient is almost out of her albuterol inhaler fill I have prescribed a refill. The patient has been on many courses of antibiotics over the past year and I do not feel that she needs antibiotics for this current illness. We have discussed home management of the symptoms, the need for primary care follow-up, and the usual indications for return. Departure - Departure Disposition: 01 Home, Self Care Clinical Impression: Viral URI with cough Condition: Stable Instructions: ED Viral Syndrome Prescriptions: Albuterol Sulf [Ventolin Hfa Inhaler] 1 - 2 puffs INH Q4HR PRN #1 inhaler PRN Reason: Shortness Of Air/Wheezing
--- NOTE | 2021-04-02 08:34 | XRAY Report ---
PROCEDURE: Chest 1 View X-Ray INDICATIONS: cough TECHNIQUE: One view of the chest was acquired. COMPARISON: 09/12/2020 FINDINGS: Surgical changes and devices: None. Lungs and pleura: No pleural effusions or pneumothorax. Lungs are clear. Mediastinum: Mediastinal contours appear normal. Heart size is normal. Bones and chest wall: No suspicious bony lesions. Overlying soft tissues appear unremarkable. IMPRESSION: 1. No acute cardiopulmonary disease. Reviewed by: Tristen Nielsen MD on 04/02/2021 8:33 AM [facility] Approved by: Tristen Nielsen MD on 04/02/2021 8:33 AM [facility] Station ID: [id number]
== END 2021-04-02 03:33 | disposition home or self-care (01) ==
LOC: ED 02:40
DX: J06.9 Acute upper respiratory infection, unspecified (principal); R05.9 Cough, unspecified
CPT/HCPCS: 99282; 99283

== ENCOUNTER 2021-11-08 05:09 | Emergency (ER) | payer MEDICAID, OTHER ==
[2021-11-08] MEDS ORDERED: IPRATROPIUM/ALBUTEROL 3 ML NEB INH STA ×2 (05:29→08:36)
[2021-11-08] MEDS ORDERED: predniSONE 20 MG TABLET PO STA ×2 (05:35→08:36)
[2021-11-08] MEDS ORDERED: ALBUTEROL NEB 2.5 MG/3 ML INH STA (06:04)
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
[2021-11-08 06:47] LABS: BASOPHILS % (AUTO) 0.1 %; EOSINOPHILS # (AUTO) 0.1 10^3/uL (0.0-0.7); EOSINOPHILS % (AUTO) 0.4 %; HCT - HEMATOCRIT 35.4 % (37.0-47.0); HGB - HEMOGLOBIN 12.3 g/dL (12.0-16.0); LYMPHOCYTES # (AUTO) 1.2 10^3/uL (1.5-3.5); MEAN CORPUSCULAR HEMOGLOBIN 31.9 pg (27.0-31.0); MEAN CORPUSCULAR HGB CONC 34.7 g/dL (32.0-36.0); MEAN CORPUSCULAR VOLUME 91.9 fL (81.0-99.0); MONOCYTES % (AUTO) 5.6 %; NEUTROPHILS # (AUTO) 14.8 10^3/uL (1.5-6.6); NEUTROPHILS % (AUTO) 86.3 %; PLT - PLATELET COUNT 203 10^3/uL (130-450); RED BLOOD COUNT 3.85 10^6/uL (4.20-5.40); RED CELL DISTRIBUTION WIDTH 13.2 % (12.0-15.0); WHITE BLOOD COUNT 17.1 x10^3/uL (4.8-10.8)
[2021-11-08 06:59] LABS: ALBUMIN 3.3 g/dL (3.2-5.5); BILIRUBIN,TOTAL 0.8 mg/dL (0.2-1.0); CALCIUM 8.4 mg/dL (8.5-10.3); CREATININE 0.5 mg/dL (0.4-1.0); POTASSIUM 3.1 mmol/L (3.5-5.0); TOTAL PROTEIN 6.5 g/dL (6.7-8.2)
[2021-11-08 08:36] LABS: B. PARAPERTUSSIS- RESP PCR PAN NOT DETECTED; B. PERTUSSIS- RESP PCR PANEL NOT DETECTED; C. PNEUMONIAE- RESP PCR PANEL NOT DETECTED; CORONAVIRUS 229E-RESP PCR NOT DETECTED; CORONAVIRUS HKU1-RESP PCR NOT DETECTED; CORONAVIRUS NL63-RESP PCR NOT DETECTED; CORONAVIRUS OC43-RESP PCR NOT DETECTED; HUMAN METAPNEUMOVIRUS NOT DETECTED; INFLUENZA A- RESP PCR PANEL NOT DETECTED; INFLUENZA B - RESP PCR PANEL NOT DETECTED; M. PNEUMONIAE- RESP PCR PANEL NOT DETECTED; PARAINFLUENZA VIRUS 1 NOT DETECTED; PARAINFLUENZA VIRUS 2 NOT DETECTED; PARAINFLUENZA VIRUS 3 NOT DETECTED; PARAINFLUENZA VIRUS 4 NOT DETECTED; RHINOVIRUS/ENTEROVIRUS NOT DETECTED; RSV- RESP PCR PANEL NOT DETECTED; SARS-CoV-2 -RESP PCR PANEL NOT DETECTED
[2021-11-08 09:51] VITALS: BP 115/73
== END 2021-11-08 09:30 | disposition home or self-care (01) ==
LOC: ED 05:09
DX: O99.891 Other specified diseases and conditions complicating pregnancy (principal); J45.21 Mild intermittent asthma with (acute) exacerbation; Z3A.00 Weeks of gestation of pregnancy not specified
CPT/HCPCS: 36415; 80053; 85025; 87633; 94150; 94640; 99284; 99285; J7512

== ENCOUNTER 2022-01-29 13:19 | Emergency (ER) | payer MEDICAID ==
--- NOTE | 2022-01-29 13:37 | ED Physician Documentation ---
PD HPI FEMALE - Stated complaint Stated Complaint: FEMALE /TEAR - Chief complaint Chief Complaint: Abd Pain - History obtained from History obtained from: Patient - History of Present Illness Timing - onset: How many days ago (10) Timing - duration: Days (10) Timing - details: Gradual onset, Still present (increased tenderness/pain the past couple of days.) Associated symptoms: Vaginal bleeding (mild and decreasing since delivery), Other (having area of tenderness with swelling increasing in right inner labial area since the time of the delivery.). No: Fever, Abdominal pain, Back pain, Vaginal discharge Contributing factors: No: (she delivered via a 4lb6oz 36 week EGA child 10 days ago without problems. Child was in NICU for 3 days then released home with mom. No infections clinically.) OB-MEDIA JOB TITLES History: G (1), P (1) Similar symptoms before: Has not had sx before Recently seen: Admitted (had labor and was in hospital for 10 days prior to increased labor/contractions leading to delivery of child after brief true labor. No tear, no episiotomy.) Review of Systems Constitutional: denies: Fever, Chills Nose: denies: Rhinorrhea / runny nose, Congestion Throat: denies: Sore throat Respiratory: denies: Cough GI: denies: Abdominal Pain, Nausea, Vomiting, Diarrhea : reports: Vaginal bleeding (mild since delivery, with decreasing amount). denies: Dysuria, Discharge Skin: reports: Lesions (has noted inner labial area of swelling and tenderness since the time of delivery, and has increased in tenderness the past day.) PD PAST MEDICAL HISTORY - Past Medical History Cardiovascular: None Respiratory: Asthma Neuro: None Endocrine/Autoimmune: None GI: GERD, Ulcers MEDIA JOB TITLES: Ovarian cysts : Other HEENT: None Psych: Depression Musculoskeletal: None Derm: Eczema - Past Surgical History Past Surgical History: Yes HEENT: Tonsil/Adenoidectomy - Present Medications Home Medications: Ambulatory Orders Medication Instructions Recorded Confirmed Albuterol Sulf [Ventolin Hfa 1 - 2 puffs INH Q4HR PRN #1 inhaler 04/02/21 Inhaler] Albuterol Sulfate [Proair Hfa 1 - 2 puffs INH Q4H PRN #1 gm 11/08/21 Inhaler] predniSONE [Deltasone] 60 mg PO DAILY 5 Days #15 tablet 11/08/21 HYDROcod/ACETAM 5/325 [[place] 5/325] 1 ea PO Q6H PRN #12 tablet 01/29/22 Mupirocin 2% Oint [Bactroban 2% 1 applic TOP TID #15 gm 01/29/22 Oint] Sulfamethox/Trimeth 800/160 1 each PO BID #10 tablet 01/29/22 [Bactrim Ds 800/160] - Allergies Allergies/Adverse Reactions: Allergies Allergy/AdvReac Type Severity Reaction Status Date / Time steroids Allergy Severe Unknown Uncoded 01/29/22 13:29 - Social History Does the pt smoke?: No Smoking Status: Never smoker Does the pt drink ETOH?: No Does the pt have substance abuse?: No - Immunizations Immunizations are current?: Yes Immunizations: TDAP current <10years - POLST Patient has POLST: No PD ED PE NORMAL - Vitals Vital signs reviewed: Yes - General General: Alert and oriented X 3, Well developed/nourished - Abdomen Abdomen: Soft, Non tender - Female 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 No discharge. No fluctuance/swelling underlying. Vaginal vault without discharge. Mild dark blood. ) - Rectal Rectal: Deferred - Back Back: No CVA TTP - Derm Derm: Normal color, No rash Results - Vitals Vitals: Vital Signs - 24 hr 01/29/22 01/29/22 13:24 15:31 Temperature 36.2 C L Heart Rate 74 65 Respiratory 16 18 Rate Blood Pressure 125/77 128/78 O2 Saturation 97 99 Oxygen O2 Source Room air PD MEDICAL DECISION MAKING - ED course Complexity details: considered differential (consider labial infection locally. Can test for herpetic. Will treat for bacterial for now. Does not have abscess feeling. ), d/w patient Departure - Departure Disposition: 01 Home, Self Care Clinical Impression: Labial infection Condition: Stable Record reviewed to determine appropriate education?: Yes Prescriptions: Sulfamethox/Trimeth 800/160 [Bactrim Ds 800/160] 1 each PO BID #10 tablet Mupirocin 2% Oint [Bactroban 2% Oint] 1 applic TOP TID #15 gm HYDROcod/ACETAM 5/325 [[place] 5/325] 1 ea PO Q6H PRN #12 tablet PRN Reason: Pain Comments: This looks like a infection of the inner labia. It does not appear to be an abscess and does not need draining. Its more on the surface. Cleanse area gently with just regular soap and water. Apply mupirocin antibiotic ointment 2-3 times daily to the area. Bactrim DS antibiotic twice daily. We did do a viral PCR test to make sure it does not have a herpetic cause. Has a very slight appearance that could suggest that. This should result in 1 to 2 days. Tylenol ibuprofen as needed for pains. Add hydrocodone if needed for worse pain. I sent your prescriptions to [facility] pharmacy in [place]. Discharge Date/Time: 01/29/22 15:32
[2022-01-29] MEDS ORDERED: SULFAMETH/TRIMETH DS 800/160 MG TABLET PO STA (15:05)
[2022-01-29] MEDS ORDERED: HYDROcod/ACETAM 5/325 MG TABLET PO STA (15:21)
[2022-01-29 15:32] VITALS: BP 128/78
== END 2022-01-29 15:32 | disposition home or self-care (01) ==
LOC: ED 13:19
DX: O86.19 Other infection of genital tract following delivery (principal); B96.89 Other specified bacterial agents as the cause of diseases classified elsewhere
CPT/HCPCS: 87529; 99282; 99283; A9270

== ENCOUNTER 2022-09-05 23:05 | Emergency (ER) | payer MEDICAID, OTHER ==
[2022-09-05 23:09] VITALS: BP 131/81
[2022-09-05 23:52] LABS: BASOPHILS % (AUTO) 0.1 %; EOSINOPHILS # (AUTO) 0.4 10^3/uL (0.0-0.7); EOSINOPHILS % (AUTO) 3.7 %; LYMPHOCYTES # (AUTO) 3.8 10^3/uL (1.5-3.5); LYMPHOCYTES % (AUTO) 39.1 %; MEAN CORPUSCULAR HGB CONC 33.3 g/dL (32.0-36.0); MEAN PLATELET VOLUME 8.8 fL (7.9-10.8); MONOCYTES # (AUTO) 0.7 10^3/uL (0.0-1.0); MONOCYTES % (AUTO) 7.7 %; NEUTROPHILS # (AUTO) 4.7 10^3/uL (1.5-6.6); PLT - PLATELET COUNT 373 10^3/uL (130-450); RED CELL DISTRIBUTION WIDTH 12.4 % (12.0-15.0); WHITE BLOOD COUNT 9.6 x10^3/uL (4.8-10.8)
[2022-09-06 00:07] LABS: CALCIUM 8.9 mg/dL (8.5-10.3); CREATININE 0.5 mg/dL (0.4-1.0); POTASSIUM 3.6 mmol/L (3.5-5.0)
== END 2022-09-06 01:22 | disposition left against medical advice (07) ==
LOC: ED 23:05
DX: Z53.21 Procedure and treatment not carried out due to patient leaving prior to being seen by health care provider (principal)
CPT/HCPCS: 36415; 80048; 84702; 85025; 86900; 86901

== ENCOUNTER 2022-09-08 08:00 | Outpatient (CLI) | payer MEDICAID ==
[2022-09-08 16:50] LABS: BILIRUBIN,URINE NEGATIVE (NEGATIVE); GLUCOSE, URINE (UA) NEGATIVE (NEGATIVE); KETONES,URINE (UA) NEGATIVE (NEGATIVE); LEUKOCYTE ESTERASE, URINE TRACE (NEGATIVE); NITRITE,URINE NEGATIVE (NEGATIVE); OCCULT BLOOD,URINE LARGE (NEGATIVE); PROTEIN,URINE NEGATIVE (NEGATIVE); UROBILINOGEN,URINE 0.2 (NORMAL) E.U./dL (NORMAL)
[2022-09-08 17:01] LABS: BACTERIA,URINE Moderate /HPF (None Seen); CLARITY,URINE CLEAR (CLEAR); MUCUS,URINE Few Strands; RBC,URINE TNTC /HPF (0-5); SQUAMOUS EPITHELIAL CELL,UR FEW Squamous (<= Few)
== END 2022-09-08 23:59 | disposition home or self-care (01) ==
LOC: LAB.WC 08:00
PROVIDERS: ATTEND Nurse Practitioner
DX: Z32.01 Encounter for pregnancy test, result positive (principal)
CPT/HCPCS: 81001; 87086

== ENCOUNTER 2022-09-08 16:57 | Outpatient (CLI) | payer MEDICAID ==
--- NOTE | 2022-09-08 18:06 | Ultrasound Report ---
PROCEDURE: OB Transvaginal INDICATIONS: VAGINAL BLEEDING,FIRST TRIMESTER OUTSIDE/PRIOR DATING DATA: Last menstrual period (LMP): 07/07/2022. LMP-based estimated date of delivery (MARILYN): 04/13/2023. First dating scan (date and location): 09/08/2022. TECHNIQUE: Real-time scanning was performed of the fetus, with image documentation. Endovaginal scanning: Yes COMPARISON: None. FINDINGS: No intrauterine gestation is seen. Small amount of complex fluid within the endometrium with increase d vascularity. IMPRESSION: 1. No evidence of viable intrauterine gestation. 2. Ectopic cannot be excluded. Reviewed by: Hyacinth Hernandez MD on 09/08/2022 6:04 PM PDT Approved by: Hyacinth Hernandez MD on 09/08/2022 6:04 PM PDT Station ID: [id number]
[2022-09-08 18:12] LABS: HCT - HEMATOCRIT 26.4 % (37.0-47.0); HGB - HEMOGLOBIN 8.6 g/dL (12.0-16.0); MEAN CORPUSCULAR HEMOGLOBIN 29.8 pg (27.0-31.0); MEAN CORPUSCULAR HGB CONC 32.6 g/dL (32.0-36.0); MEAN CORPUSCULAR VOLUME 91.3 fL (81.0-99.0); MEAN PLATELET VOLUME 8.6 fL (7.9-10.8); RED BLOOD COUNT 2.89 10^6/uL (4.20-5.40); WHITE BLOOD COUNT 8.8 x10^3/uL (4.8-10.8)
[2022-09-08 18:40] LABS: ALBUMIN 3.4 g/dL (3.2-5.5); ALBUMIN/GLOBULIN RATIO 1.3 (1.0-2.2); BILIRUBIN,TOTAL 0.4 mg/dL (0.2-1.0); CALCIUM 8.4 mg/dL (8.5-10.3); CREATININE 0.5 mg/dL (0.4-1.0); POTASSIUM 3.9 mmol/L (3.5-5.0); TOTAL PROTEIN 6.1 g/dL (6.7-8.2)
== END 2022-09-08 16:58 | disposition home or self-care (01) ==
LOC: DI 16:57
PROVIDERS: ATTEND Nurse Practitioner
DX: O46.91 Antepartum hemorrhage, unspecified, first trimester (principal); Z3A.00 Weeks of gestation of pregnancy not specified
CPT/HCPCS: 36415; 80053; 81001; 84702; 85027; 86900; 86901; 87086

== ENCOUNTER 2022-09-09 10:08 | Day surgery (SDC) | payer MEDICAID ==
[2022-09-09] MEDS ORDERED: LACTATED RINGERS 1,000 ML IV ONE (10:31)
--- NOTE | 2022-09-09 10:56 | ANESTHESIA ---
Pre-Anesthesia VS, & Labs - Diagnosis incomplete AB - Procedure suction D&C Vital Signs: Temp Pulse Resp BP Pulse Ox O2 Flow Rate 36.2 C L 89 16 134/78 H 97 0 09/09/22 10:41 09/09/22 10:41 09/09/22 10:41 09/09/22 10:41 09/09/22 10:41 09/09/22 10:41 Height: 5 ft 6 in Weight (kg): 83 kg Body Mass Index: 29.5 BMI Classification: Overweight - NPO >8 hours - Is Patient ?: Yes (AB incomplete) - Lab Results Lab results reviewed: Yes Home Medications and Allergies Allergies/Adverse Reactions: Allergies Allergy/AdvReac Type Severity Reaction Status Date / Time steroids Allergy Severe Unknown Uncoded 01/29/22 13:29 Anes History & Medical History - Anesthetic History Anesthesia Complications: reports: No previous complications Family history of Anesthesia Complications: Denies Family history of Malignant Hyperthermia: Denies - Medical History Cardiovascular: reports: None, Murmur Pulmonary: reports: Asthma Gastrointestinal: reports: GERD, Ulcers Urinary: reports: Other Neuro: reports: None Musculoskeletal: reports: None Endocrine/Autoimmune: reports: None Blood Disorders: reports: Anemia Skin: reports: Eczema Smoking Status: Never smoker - Surgical History General: reports: EGD Eyes Ears Nose Throat (EENT): reports: Tonsil/Adenoidectomy Gynecologic: reports: Dilation and currettage Exam General: Alert, Oriented x3, Cooperative Dental: WNL Mouth Openin Fingerbreadth Neck Mobility: Normal Mallampati classification: II Respiratory: Lungs clear, Normal breath sounds, No respiratory distress Cardiovascular: Regular rate Mental/Cognitive Status: Alert/Oriented X3, Normal for patient Cognitive Status: Within normal limits Plan Anesthesia Type: General Consent for Procedure(s) Verified and Reviewed: Yes Code Status: Attempt Resuscitation ASA classification: 2-Mild systemic disease Is this case an emergency?: No
[2022-09-09] MEDS ORDERED: MIDAZOLAM 2 MG/2 ML VIAL ONE (10:57)
[2022-09-09] MEDS ORDERED: LIDOCAINE-PF 2% 10 ML AMP SUBQ ONE (10:57)
[2022-09-09] MEDS ORDERED: fentaNYL 100 MCG/2 ML VIAL ONE ×2 (10:57→13:13)
[2022-09-09] MEDS ORDERED: PROPOFOL 200 MG/20 ML VIAL IVP ONE (10:57)
[2022-09-09] MEDS ORDERED: NALOXONE 0.4 MG/ML VIAL IVP PRN (11:41)
[2022-09-09] MEDS ORDERED: HYDROmorphone 0.5 MG/0.5 ML SYRINGE IVP PRN (11:41)
[2022-09-09] MEDS ORDERED: METOCLOPRAMIDE 10 MG/2 ML VIAL IVP PRN (11:41)
[2022-09-09] MEDS ORDERED: ePHEDrine 50 MG/ML VIAL IVP PRN (11:41)
[2022-09-09] MEDS ORDERED: MORPHINE 2 MG/ML CARPUJECT IVP PRN (11:41)
[2022-09-09] MEDS ORDERED: ONDANSETRON 4 MG/2 ML VIAL IVP PRN (11:41)
[2022-09-09] MEDS ORDERED: ATROPINE ABBOJECT 1 MG/10 ML SYRINGE IVP PRN (11:41)
[2022-09-09] MEDS ORDERED: LACTATED RINGERS 1,000 ML IV SCH (12:00)
[2022-09-09] MEDS ORDERED: ONDANSETRON 4 MG/2 ML VIAL ONE (12:15)
[2022-09-09] MEDS ORDERED: KETOROLAC 30 MG/ML VIAL ONE (12:27)
[2022-09-09] MEDS ORDERED: LACTATED RINGERS 350 ML IV ONE (12:59)
[2022-09-09] MEDS ORDERED: DOXYCYCLINE 100 MG TABLET PO ONE (13:00)
[2022-09-09] MEDS ORDERED: ACETAMINOPHEN 500 MG TABLET PO ONE ×2 (13:00→13:55)
[2022-09-09] MEDS ORDERED: KETOROLAC 30 MG/ML VIAL IVP SCH (13:00)
[2022-09-09] MEDS: fentaNYL 100 MCG/2 ML VIAL IVP PRN ×2 (13:12→13:23)
--- NOTE | 2022-09-09 13:24 | ANESTHESIA POST OP EVALUATION ---
Anesthesia Post Eval - Post Anesthesia Eval Vitals: Last Vital Signs Temp 36.2 C L 09/09/22 13:13 Pulse 70 09/09/22 13:13 Resp 12 09/09/22 13:13 BP 121/75 09/09/22 13:13 Pulse Ox 100 09/09/22 13:13 O2 Flow Rate 0 09/09/22 10:41 CV Function Including HR & BP: Stable Pain Control: Satisfactory Nausea & Vomiting: Negative Mental Status: Baseline Respiratory Status: Airway Patent Hydration Status: Satisfactory Anesthesia Complications: None
[2022-09-09 14:41] VITALS: BP 119/51
--- NOTE | 2022-09-09 19:03 | OPERATIVE REPORT ---
Operative Report - General Procedure Date: 09/09/22 Planned Procedure: Dilation and curettage Pre-Op Diagnosis: Incomplete spontaneous Procedure Performed: Dilation and curettage Post Op Diagnosis: Incomplete spontaneous - Procedure Note Primary Surgeon: Clarisse Cabezas DO Secondary Surgeon: Kiah Pedro NP; assistance requested for US guidance Anesthesia Provider: Dalton Veronica CRNA Pathology: Products of conception Estimated Blood Loss (mL): 200 Indications: Incomplete spontaneous Findings: Large amount of products of conception, possible portion of placenta Complications: None - Other Other Information/Narrative: Patient transported to OR. Anesthesia obtained. Placed in dorsal lithotomy position. Prepped and draped in sterile fashion. Bladder emptied. Speculum placed. Cervix visualized and anterior lip grasped with tenaculum. Sounded to 8cm. 7mm curved rigid curette introduced and POCs removed. Sharp curette introduced and remaining tissue removed. Suction curette reintroduced and large piece of tissue or placenta removed. Hemostasis. Procedure completed with US guidance and endometrium thin at end of procedure. Counts correct x2. Transferred to PACU in stable condition.
== END 2022-09-09 10:09 | disposition home or self-care (01) ==
LOC: SDS 10:08
PROVIDERS: ATTEND Obstetrics & Gynecology
PROC: 10D17ZZ Extraction of Products of Conception, Retained, Via Natural or Artificial Opening (ICD-10-PCS; principal; 2022-09-09 11:45)
DX: O03.1 Delayed or excessive hemorrhage following incomplete spontaneous abortion (principal); D64.9 Anemia, unspecified
CPT/HCPCS: 36415; 59812; 86850; 86900; 86901; A9270; J7120

== ENCOUNTER 2023-04-18 12:19 | Emergency (ER) | payer MEDICAID ==
[2023-04-18] MEDS ORDERED: KETOROLAC 15 MG/ML VIAL IVP STA (13:18)
[2023-04-18] MEDS ORDERED: SODIUM CHLORIDE 0.9% 1,000 ML IV STA (13:18)
[2023-04-18] MEDS ORDERED: DEXAMETHASONE 10 MG/ML VIAL IVP STA (13:18)
[2023-04-18] MEDS ORDERED: METOCLOPRAMIDE 10 MG/2 ML VIAL IVP STA (13:18)
[2023-04-18] MEDS ORDERED: IPRATROPIUM/ALBUTEROL 3 ML NEB INH STA (13:19)
--- NOTE | 2023-04-18 13:19 | ED Physician Documentation ---
PD HPI DYSPNEA - Stated complaint Stated Complaint: SOA/COUGH - Chief complaint Chief Complaint: Resp - History obtained from History obtained from: Patient - Additional information Additional information: 27-year-old woman with underlying asthma and some possibility of has been sick for 3 days with cough, shortness of breath, some upper abdominal pain, worsening asthma and fever up to 102. Her son was recently ill with a viral URI. PD PAST MEDICAL HISTORY - Past Medical History Past Medical History: Yes Cardiovascular: None, Murmur Respiratory: Asthma Neuro: None Endocrine/Autoimmune: None GI: GERD, Ulcers SECURITY SME: Ovarian cysts : Other HEENT: None Psych: Depression Musculoskeletal: None Derm: Eczema - Past Surgical History Past Surgical History: Yes General: EGD /SECURITY SME: Dilation and currettage HEENT: Tonsil/Adenoidectomy - Present Medications Home Medications: Ambulatory Orders Medication Instructions Recorded Confirmed Albuterol Sulfate [Proair Hfa 1 - 2 puffs INH Q4H PRN #1 gm 11/08/21 09/09/22 Inhaler] Metoclopramide [Reglan] 10 mg PO Q6H PRN #20 tablet 04/18/23 predniSONE [Deltasone] 20 mg PO [id number] #21 tab 04/18/23 - Allergies Allergies/Adverse Reactions: Allergies Allergy/AdvReac Type Severity Reaction Status Date / Time steroids AdvReac Severe Unknown Uncoded 04/18/23 13:20 - Social History Does the pt smoke?: Yes Smoking Status: Current every day smoker Does the pt drink ETOH?: No Does the pt have substance abuse?: No - Immunizations Immunizations are current?: Yes Immunizations: TDAP current <10years - POLST Patient has POLST: No PD ED PE NORMAL - Vitals Vital signs reviewed: Yes - General General: No acute distress, Well developed/nourished - HEENT HEENT: Pharynx benign - Neck Neck: Supple, no meningeal sign, No bony TTP - Cardiac Cardiac: RRR, No murmur - Respiratory Respiratory: Other (Mildly labored breathing with inspiratory and expiratory wheezes but good air movement) - Abdomen Abdomen: Non tender - Derm Derm: No rash - Neuro Neuro: Alert and oriented X 3, Normal speech Results - Vitals Vitals: Vital Signs - 24 hr 04/18/23 04/18/23 04/18/23 12:22 13:42 14:35 Temperature 36.0 C L Heart Rate 91 89 97 Respiratory 24 16 20 Rate Blood Pressure 122/61 155/98 H O2 Saturation 94 97 Oxygen O2 Source Room air - Labs Labs: Laboratory Tests 04/18/23 04/18/23 04/18/23 12:30 13:45 13:45 Sodium 133 L Potassium 3.6 Chloride 103 Carbon Dioxide 22 Anion Gap 8.0 BUN 6 Creatinine 0.4 L Estimated GFR (MDRD) 190 Glucose 106 H Calcium 9.2 Total Bilirubin 0.8 AST 10 ALT 10 Alkaline Phosphatase 80 Total Protein 6.4 Albumin 3.8 Globulin 2.6 Albumin/Globulin Ratio 1.5 Lipase < 10 L Urine Color BROWN Urine Clarity SL. CLOUDY Urine pH Ur Specific [place] Urine Protein Urine Glucose (UA) NEGATIVE Urine Ketones Urine Occult Blood Urine Nitrite Urine Bilirubin NEGATIVE Urine Urobilinogen Ur Leukocyte Esterase NEGATIVE Urine RBC 11-25 H Urine WBC 4-5 Ur Squamous Epith Cells MOD Squamous H Urine Bacteria Moderate H Ur Microscopic Review INDICATED Urine Culture Comments NOT INDICATED Urine HCG, Qual POSITIVE Nasal Adenovirus (PCR) NOT DETECTED Nasal B. parapertussis DNA (PCR) NOT DETECTED Nasal Coronavir 229E PCR NOT DETECTED Nasal Coronavir HKU1 PCR NOT DETECTED Nasal Coronavir NL63 PCR NOT DETECTED Nasal Coronavir OC43 PCR NOT DETECTED Nasal Enterovir/Rhinovir PCR NOT DETECTED Nasal Influenza B PCR NOT DETECTED Nasal Influenza A PCR NOT DETECTED Nasal Parainfluen 1 PCR NOT DETECTED Nasal Parainfluen 2 PCR NOT DETECTED Nasal Parainfluen 3 PCR NOT DETECTED Nasal Parainfluen 4 PCR NOT DETECTED Nasal RSV (PCR) DETECTED A Nasal B.pertussis DNA PCR NOT DETECTED Nasal C.pneumoniae (PCR) NOT DETECTED [place] Human Metapneumo PCR NOT DETECTED Nasal M.pneumoniae (PCR) NOT DETECTED Nasal SARS-CoV-2 (PCR) NOT DETECTED PD Medical Decision Making - ED course ED course: 27-year-old who did not know she was presents with a viral URI with wheezing and some nausea and vomiting. She was feeling better after a DuoNeb, IV Reglan and IV fluids. She was mildly hyponatremic on CMP, otherwise unremarkable. She did have a positive test here and a [employer] panel positive for RSV. Bedside ultrasound was done and despite her LMP being February 13, I was able to identify a live male intrauterine with a BPD corresponding to 22 weeks. She queried about the possibility of an , and I reached out to our on-call OB supply chain consultant, Dr. Torres who will see her on Thursday to discuss options given her stage of . Departure - Departure Disposition: Home, Self Care Clinical Impression: Gastroenteritis, RSV infection, Condition: Good Record reviewed to determine appropriate education?: Yes Instructions: ED Viral Syndrome Follow-Up: Donnie Torres MD [Provider Admit Priv/Credential] - Prescriptions: predniSONE [Deltasone] 20 mg PO [id number] #21 tab Metoclopramide [Reglan] 10 mg PO Q6H PRN #20 tablet PRN Reason: nausea or headache Comments: You were seen today for a viral infection known as RSV. For this you can continue your nebulizer but I am also adding steroids for the wheezing and some nausea medication. You are also found to be , further along than would be expected. Our OB supply chain consultant should be reaching out to you Thursday morning, you can call her office if you have not heard from her by 10 AM or so on Thursday. The number is on this form. Return if worse. Forms: PCP List
[2023-04-18 13:39] LABS: B. PARAPERTUSSIS- RESP PCR PAN NOT DETECTED; B. PERTUSSIS- RESP PCR PANEL NOT DETECTED; C. PNEUMONIAE- RESP PCR PANEL NOT DETECTED; CORONAVIRUS 229E-RESP PCR NOT DETECTED; CORONAVIRUS HKU1-RESP PCR NOT DETECTED; CORONAVIRUS NL63-RESP PCR NOT DETECTED; CORONAVIRUS OC43-RESP PCR NOT DETECTED; HUMAN METAPNEUMOVIRUS NOT DETECTED; INFLUENZA A- RESP PCR PANEL NOT DETECTED; M. PNEUMONIAE- RESP PCR PANEL NOT DETECTED; PARAINFLUENZA VIRUS 1 NOT DETECTED; PARAINFLUENZA VIRUS 2 NOT DETECTED; PARAINFLUENZA VIRUS 3 NOT DETECTED; PARAINFLUENZA VIRUS 4 NOT DETECTED; RHINOVIRUS/ENTEROVIRUS NOT DETECTED; RSV- RESP PCR PANEL DETECTED; SARS-CoV-2 -RESP PCR PANEL NOT DETECTED
[2023-04-18 13:40] LABS: INFLUENZA B - RESP PCR PANEL NOT DETECTED
[2023-04-18 13:58] LABS: GLUCOSE, URINE (UA) NEGATIVE (NEGATIVE); LEUKOCYTE ESTERASE, URINE NEGATIVE (NEGATIVE)
[2023-04-18 13:59] LABS: CLARITY,URINE SL. CLOUDY (CLEAR)
[2023-04-18 14:00] LABS: BILIRUBIN,URINE NEGATIVE (NEGATIVE); ICTOTEST,URINE NEGATIVE
[2023-04-18 14:06] LABS: ALBUMIN 3.8 g/dL (3.2-5.5); ALBUMIN/GLOBULIN RATIO 1.5 (1.0-2.2); ALKALINE PHOSPHATASE 80 IU/L (42-121); ALT ALANINE AMINOTRANSFERASE 10 IU/L (10-60); AST ASPARTATE AMINOTRANSFERASE 10 IU/L (10-42); BILIRUBIN,TOTAL 0.8 mg/dL (0.2-1.0); BUN - BLOOD UREA NITROGEN 6 mg/dL (6-20); CALCIUM 9.2 mg/dL (8.5-10.3); CARBON DIOXIDE - CO2 22 mmol/L (21-32); CHLORIDE 103 mmol/L (101-111); CREATININE 0.4 mg/dL (0.6-1.3); GFR - MDRD 190 (>89); GLUCOSE 106 mg/dL (74-104); LIPASE < 10 U/L (11-82); POTASSIUM 3.6 mmol/L (3.5-4.5); SODIUM 133 mmol/L (135-145); TOTAL PROTEIN 6.4 g/dL (6.4-8.9)
[2023-04-18 14:07] LABS: HCG UR QUAL POSITIVE
[2023-04-18 14:08] LABS: BACTERIA,URINE Moderate /HPF (None Seen); SQUAMOUS EPITHELIAL CELL,UR MOD Squamous (<= Few)
[2023-04-18 14:57] VITALS: BP 122/73; O2SAT 93
== END 2023-04-18 14:52 | disposition home or self-care (01) ==
LOC: ED 12:19
DX: O99.512 Diseases of the respiratory system complicating pregnancy, second trimester (principal); Z3A.22 22 weeks gestation of pregnancy; B97.4 Respiratory syncytial virus as the cause of diseases classified elsewhere; O99.612 Diseases of the digestive system complicating pregnancy, second trimester; K52.9 Noninfective gastroenteritis and colitis, unspecified; O99.332 Smoking (tobacco) complicating pregnancy, second trimester; F17.200 Nicotine dependence, unspecified, uncomplicated; Z79.899 Other long term (current) drug therapy; Z11.52 Encounter for screening for COVID-19
CPT/HCPCS: 36415; 80053; 81001; 81025; 83690; 87633; 94640; 96374; 96375; 99283; 99284; J2765; 81003; 87086

== ENCOUNTER 2023-04-24 23:07 | Outpatient (CLI) | payer MEDICAID ==
--- NOTE | 2023-04-25 01:31 | Ultrasound Report ---
PROCEDURE: OB Detailed Eval INDICATIONS: +PREG TEST, DATING. 21 WEEK AT BEDSIDE US OUTSIDE/PRIOR DATING DATA: Last menstrual period (LMP): 02/13/2023. LMP-based estimated date of delivery (MARILYN): 11/20/2023. First dating scan (date and location): 04/24/2023. Estimated date of delivery (MARILYN) from first dating scan: 09/02/2023. TECHNIQUE: Real-time scanning was performed of the fetus, with image documentation and biometric measurements. COMPARISON: None. FINDINGS: General: A single living intrauterine gestation is present. Presentation: Vertex Placenta: Placental position is posterior, without previa. Amniotic fluid index: 15.9 cm, within normal limits for gestational age. heart rate: 145 beats per minute. Maternal cervical canal: 3.7 cm long; normal length is 2.5 cm or more. biometrics: Biparietal diameter: 5.2 cm 21 weeks 4 days Head circumference: 19.0 cm 21 weeks 2 days Abdominal circumference: 16.4 cm 21 weeks 3 days Femur length: 3.6 cm 21 weeks 3 days Composite gestational age from present scan: 21 weeks 2 days Estimated weight and percentile: 422 g greater than the 99th percentile Anatomic survey: Neuro: Ventricles are normal at less than 10 mm. Cisterna magna is normal at 3-11 mm. Cerebellum i s normal in size and morphology. Nuchal skin fold: Normal at less than 6 mm between 14 and 20 weeks gestational age. Face: Nose and lips, facial profile are normal. Spine: No evidence for spina bifida. Heart: 4-chambered heart is present, with normal ventricular outflow tracts. Echogenic focus is not ed in the left ventricle. Diaphragm: Diaphragm is intact. Stomach: Left-sided stomach is present. Kidneys: No hydronephrosis. Normal is less than 5 mm in 2nd trimester, less than 7 mm in 3rd trimester. Cord: 3 vessel cord has orthotopic insertion. Bladder: Normal in size. Extremities: All 4 extremities are visualized. IMPRESSION: Single live intrauterine with gestational age by ultrasound of 21 weeks 2 days. Fetus is we ight is greater than the 99th percentile consistent with macrosomia. Dates are discordant with LMP-ba sed MARILYN. Biometric percentiles are unable to be calculated as they are out of range. Echogenic focus within the left ventricle. This is overall nonspecific. However, recommend correlatio n to clinical and genetic factors. Interval follow-up is recommended. Reviewed by: Dolores Rodriguez MD on 04/25/2023 1:29 AM [facility] Approved by: Dolores Rodriguez MD on 04/25/2023 1:29 AM [facility] Station ID: [id number]
== END 2023-04-24 23:08 | disposition home or self-care (01) ==
LOC: DI 23:07
PROVIDERS: ATTEND Obstetrics & Gynecology
DX: Z36.87 Encounter for antenatal screening for uncertain dates (principal)

== ENCOUNTER 2023-05-11 13:47 | Outpatient (CLI) | payer MEDICAID ==
[2023-05-11 14:27] LABS: BASOPHILS % (AUTO) 0.1 %; EOSINOPHILS # (AUTO) 0.1 10^3/uL (0.0-0.7); EOSINOPHILS % (AUTO) 1.4 %; HCT - HEMATOCRIT 36.7 % (37.0-47.0); HGB - HEMOGLOBIN 12.5 g/dL (12.0-16.0); LYMPHOCYTES # (AUTO) 2.3 10^3/uL (1.5-3.5); MEAN CORPUSCULAR HEMOGLOBIN 30.2 pg (27.0-31.0); MEAN CORPUSCULAR HGB CONC 34.1 g/dL (32.0-36.0); MEAN CORPUSCULAR VOLUME 88.6 fL (81.0-99.0); MEAN PLATELET VOLUME 9.9 fL (7.9-10.8); MONOCYTES # (AUTO) 0.5 10^3/uL (0.0-1.0); MONOCYTES % (AUTO) 5.8 %; NEUTROPHILS # (AUTO) 5.1 10^3/uL (1.5-6.6); NEUTROPHILS % (AUTO) 63.2 %; PLT - PLATELET COUNT 270 10^3/uL (130-450); RED BLOOD COUNT 4.14 10^6/uL (4.20-5.40); RED CELL DISTRIBUTION WIDTH 13.4 % (12.0-15.0); WHITE BLOOD COUNT 8.1 x10^3/uL (4.8-10.8)
[2023-05-11 14:47] LABS: BILIRUBIN,URINE NEGATIVE (NEGATIVE); GLUCOSE, URINE (UA) NEGATIVE (NEGATIVE); KETONES,URINE (UA) NEGATIVE (NEGATIVE); LEUKOCYTE ESTERASE, URINE TRACE (NEGATIVE); NITRITE,URINE NEGATIVE (NEGATIVE); OCCULT BLOOD,URINE MODERATE (NEGATIVE); PROTEIN,URINE NEGATIVE (NEGATIVE); UROBILINOGEN,URINE 0.2 (NORMAL) E.U./dL (NORMAL)
[2023-05-11 14:59] LABS: AMORPHOUS SEDIMENT,UR Marked /LPF; BACTERIA,URINE Few /HPF (None Seen); CLARITY,URINE SL. CLOUDY (CLEAR); SQUAMOUS EPITHELIAL CELL,UR FEW Squamous (<= Few)
[2023-05-12 06:10] LABS: RPR Non Reactive (Non Reactive)
[2023-05-12 07:09] LABS: HBsAG SCREEN Negative (Negative)
[2023-05-12 08:10] LABS: HIV SCREEN 4TH GENERATION Non Reactive (Non Reactive)
[2023-05-12 09:09] LABS: HCV AB Non Reactive (Non Reactive); VARICELLA-ZOSTER AB IGG 615 index (Immune >165)
== END 2023-05-11 13:48 | disposition home or self-care (01) ==
LOC: LAB 13:47
PROVIDERS: ATTEND Obstetrics & Gynecology
DX: O09.92 Supervision of high risk pregnancy, unspecified, second trimester (principal)
CPT/HCPCS: 36415; 81001; 85025; 86592; 86762; 86787; 86803; 86850; 86900; 86901; 87077; 87086; 87181; 87340; 87389

== ENCOUNTER 2023-06-24 08:00 | Outpatient (CLI) | payer MEDICAID ==
[2023-06-25 17:42] LABS: CHLAMYDIA TRACHOMATIS DNA NEGATIVE (NEGATIVE); NEISSERIA GONORRHOEAE DNA NEGATIVE (NEGATIVE); TRICHOMONAS VAGINALIS DNA NEGATIVE (NEGATIVE)
== END 2023-06-24 08:01 | disposition home or self-care (01) ==
LOC: LAB.WC 08:00
PROVIDERS: ATTEND Obstetrics & Gynecology
DX: O09.92 Supervision of high risk pregnancy, unspecified, second trimester (principal)
CPT/HCPCS: 87491; 87591; 87661

== ENCOUNTER 2023-07-21 13:17 | Outpatient (CLI) | payer MEDICAID ==
[2023-07-21 17:49] LABS: HCT - HEMATOCRIT 36.9 % (37.0-47.0); HGB - HEMOGLOBIN 12.1 g/dL (12.0-16.0); MEAN CORPUSCULAR HGB CONC 32.8 g/dL (32.0-36.0); MEAN CORPUSCULAR VOLUME 91.3 fL (81.0-99.0); RED BLOOD COUNT 4.04 10^6/uL (4.20-5.40); RED CELL DISTRIBUTION WIDTH 13.8 % (12.0-15.0); WHITE BLOOD COUNT 11.5 x10^3/uL (4.8-10.8)
== END 2023-07-21 13:18 | disposition home or self-care (01) ==
LOC: LAB.N 13:17
PROVIDERS: ATTEND Obstetrics & Gynecology
DX: O09.92 Supervision of high risk pregnancy, unspecified, second trimester (principal)
CPT/HCPCS: 36415; 82950; 85027

== ENCOUNTER 2023-08-05 08:00 | Outpatient (CLI) | payer MEDICAID | END 2023-08-05 23:59 | disposition home or self-care (01) | LOC: LAB.WC 08:00 | PROVIDERS: ATTEND Obstetrics & Gynecology | DX: Z36.85 Encounter for antenatal screening for Streptococcus B (principal) | CPT/HCPCS: 87797 ==

== ENCOUNTER 2023-08-07 15:25 | Outpatient (CLI) | payer MEDICAID ==
--- NOTE | 2023-08-07 17:01 | Ultrasound Report ---
PROCEDURE: OB Follow up INDICATIONS: SUPERVISION OF HIGH RISK OUTSIDE/PRIOR DATING DATA: Last menstrual period (LMP): 02/14/2020. LMP-based estimated date of delivery (MARILYN): 11/20/2023. First dating scan (date and location): 04/24/2023. Estimated date of delivery (MARILYN) from first dating scan: 09/02/2023. The below data below was generated using the working MARILYN of 09/02/2023 TECHNIQUE: Real-time scanning was performed of the fetus, with image documentation and biometric measurements. Endovaginal scanning: Not performed. COMPARISON: 04/24/2023 FINDINGS: General: A single living intrauterine gestation is present. Presentation: Breech Placenta: Placental position is posterior, without previa. Amniotic fluid index: 11.4 cm, within normal limits for gestational age. heart rate: 141 beats per minute. Maternal cervical canal: 2.9 cm long; normal length is 2.5 cm or more. biometrics: Biparietal diameter: 8.9 cm, 36 weeks, 3 days, 64.1% Head circumference: 32.3 cm, 36 weeks, 4 days, 28% Abdominal circumference: 31.8 cm, 35 weeks, 5 days, 45% Femur length: 6.28 cm, 32 weeks, 4 days, less than 0.5% Estimated gestational age from initial scan: 36 weeks, 2 days Composite gestational age from present scan: 35 weeks, 2 days Estimated weight and percentile: 2584 g, 21.3% Measurement variability in biometric dating: +/- 10 days from 12-20 weeks gestation, +/- 2 weeks from 20-30 weeks gestation, +/- 3 weeks at 30 weeks gestation or more. Other: Not applicable. IMPRESSION: 1. Single live intrauterine gestation with fetus in breech presentation. heart rate is 141 bpm. Normal amount of amniotic fluid. CONOR is 11.4 cm. 2. Estimated gestational age based on current study is 35 weeks 2 days, estimated gestational age fro m initial scan is 36 weeks, 2 days. Estimated weight is at 21.3%. Femur length is measured less than 0.5%. Reviewed by: Jose Alfredo Harley MD on 08/07/2023 5:00 PM PDT Approved by: Jose Alfredo Harley MD on 08/07/2023 5:00 PM PDT Station ID: [id number]
== END 2023-08-07 15:26 | disposition home or self-care (01) ==
LOC: DI 15:25
PROVIDERS: ATTEND Obstetrics & Gynecology
DX: O09.93 Supervision of high risk pregnancy, unspecified, third trimester (principal); O32.1XX0 Maternal care for breech presentation, not applicable or unspecified; Z3A.36 36 weeks gestation of pregnancy

== ENCOUNTER 2023-08-07 16:48 | Outpatient (CLI) | payer MEDICAID ==
[2023-08-07 17:03] VITALS: BP 122/90; O2SAT 95
[2023-08-07 18:02] LABS: BASOPHILS % (AUTO) 0.2 %; EOSINOPHILS # (AUTO) 0.1 10^3/uL (0.0-0.7); EOSINOPHILS % (AUTO) 1.2 %; HCT - HEMATOCRIT 36.5 % (37.0-47.0); HGB - HEMOGLOBIN 11.9 g/dL (12.0-16.0); LYMPHOCYTES # (AUTO) 2.6 10^3/uL (1.5-3.5); LYMPHOCYTES % (AUTO) 24.8 %; MEAN CORPUSCULAR HEMOGLOBIN 29.6 pg (27.0-31.0); MEAN CORPUSCULAR HGB CONC 32.6 g/dL (32.0-36.0); MEAN CORPUSCULAR VOLUME 90.8 fL (81.0-99.0); MEAN PLATELET VOLUME 10.1 fL (7.9-10.8); MONOCYTES # (AUTO) 0.6 10^3/uL (0.0-1.0); MONOCYTES % (AUTO) 5.6 %; NEUTROPHILS # (AUTO) 7.2 10^3/uL (1.5-6.6); NEUTROPHILS % (AUTO) 67.7 %; PLT - PLATELET COUNT 224 10^3/uL (130-450); RED BLOOD COUNT 4.02 10^6/uL (4.20-5.40); RED CELL DISTRIBUTION WIDTH 13.6 % (12.0-15.0); WHITE BLOOD COUNT 10.6 x10^3/uL (4.8-10.8)
[2023-08-07 18:20] LABS: ALBUMIN 3.4 g/dL (3.2-5.5); ALBUMIN/GLOBULIN RATIO 1.5 (1.0-2.2); BILIRUBIN,TOTAL 0.3 mg/dL (0.2-1.0); CALCIUM 8.6 mg/dL (8.5-10.3); CREATININE 0.4 mg/dL (0.6-1.3); POTASSIUM 3.8 mmol/L (3.5-4.5); TOTAL PROTEIN 5.6 g/dL (6.4-8.9)
--- NOTE | 2023-08-07 18:29 | PROCEDURE REPORT ---
- HPI Diagnosis/Indication for NST: Gestational Hypertension Current EDU 09/02/23 Gestation 36 Weeks and 2 Days 2 Para 1 Vital Signs Temperature 97.9 F 08/07/23 16:57 Heart Rate 75 08/07/23 16:57 Respiratory Rate 16 08/07/23 16:57 Blood Pressure 122/90 H 08/07/23 16:57 O2 Saturation 95 08/07/23 16:57 Temperature 97.9 F 08/07/23 16:57 Heart Rate 75 08/07/23 16:57 Respiratory Rate 16 08/07/23 16:57 Blood Pressure 122/90 H 08/07/23 16:57 O2 Saturation 95 08/07/23 16:57 If not protocol: Oxygen Flow, liters/minute - NST Procedure NST Procedure Start Date 08/07/23 Start Time 16:39 Stop Time 17:01 Vibroacoustic Stimulation Used No Patient States Movement Yes - Results and Plan Plan: Patient is a 27-year-old -0-0-1 at 36 weeks 2 days gestation here for NST. NST Performed 08/07/2023 NST Read 08/07/2023 FHT: 120 bpm baseline, moderate variability, accelerations present, no decelerations. Reactive NST [place]: Quiescent Diagnosis 36 weeks gestation Gestational hypertension Patient was seen in ultrasound and concern for low heart rate that resolved. Was sent to L&D for NST which was non-concerning. Continue with scheduled OB care
[2023-08-07 19:14] LABS: CREATININE,URINE 74.7 mg/dL; PROTEIN/CREATININE RATIO,URINE 0.1 (<=0.2)
== END 2023-08-07 18:15 | disposition home or self-care (01) ==
LOC: WFO 16:48 → FBP 16:49 → WFO 18:15
PROVIDERS: ATTEND Obstetrics & Gynecology
DX: O13.3 Gestational [pregnancy-induced] hypertension without significant proteinuria, third trimester (principal); Z3A.36 36 weeks gestation of pregnancy; O09.93 Supervision of high risk pregnancy, unspecified, third trimester
CPT/HCPCS: 36415; 59025; 80053; 82570; 84156; 85025; 99215

== ENCOUNTER 2023-08-14 06:47 | Inpatient (IN) | payer MEDICAID ==
--- NOTE | 2023-08-14 06:55 | ANESTHESIA ---
Pre-Anesthesia VS, & Labs - Diagnosis breech baby - Procedure external version, possible C/S Height: 5 ft 6 in - NPO >8 hours - Is Patient ?: Yes - Lab Results Lab results reviewed: Yes Fish Bones: 08/14/23 07:18 08/14/23 07:18 Home Medications and Allergies Allergies/Adverse Reactions: Allergies Allergy/AdvReac Type Severity Reaction Status Date / Time steroids AdvReac Severe Unknown Uncoded 04/18/23 13:20 Anes History & Medical History - Anesthetic History Anesthesia Complications: reports: No previous complications Family history of Anesthesia Complications: Denies Family history of Malignant Hyperthermia: Denies - Medical History Cardiovascular: reports: None, Murmur Pulmonary: reports: Asthma Gastrointestinal: reports: GERD, Ulcers Urinary: reports: Other Neuro: reports: None Musculoskeletal: reports: None Endocrine/Autoimmune: reports: None Blood Disorders: reports: Anemia Skin: reports: Eczema Smoking Status: Current every day smoker History of Cancer?: No - Surgical History General: reports: EGD Eyes Ears Nose Throat (EENT): reports: Tonsil/Adenoidectomy Gynecologic: reports: Dilation and currettage Exam General: Alert, Oriented x3, Cooperative Dental: WNL Mouth Openin Fingerbreadth Neck Mobility: Normal Thyromental Distance: 4-6 cm Respiratory: Lungs clear, Normal breath sounds, No respiratory distress Cardiovascular: Regular rate Neurological: Normal speech Mental/Cognitive Status: Alert/Oriented X3, Normal for patient Cognitive Status: Within normal limits Plan Anesthesia Type: General, Spinal, Epidural, Transverse Abdominis Plane (TAP) Block Consent for Procedure(s) Verified and Reviewed: Yes Code Status: Attempt Resuscitation ASA classification: 2-Mild systemic disease Is this case an emergency?: No
[2023-08-14] MEDS ORDERED: ONDANSETRON 4 MG/2 ML VIAL IVP PRN ×2 (07:01→11:39)
[2023-08-14] MEDS ORDERED: SODIUM CHLORIDE FLUSH 0.9% 10 ML SYRINGE IVP PRN (07:01)
[2023-08-14] MEDS ORDERED: RHO(D) IMMUNE GLOBULIN 300 MCG SYRINGE IM PRN (07:01)
[2023-08-14] MEDS ORDERED: fentaNYL 100 MCG/2 ML VIAL IVP PRN ×2 (07:01→11:39)
[2023-08-14 07:28] LABS: BASOPHILS % (AUTO) 0.3 %; EOSINOPHILS # (AUTO) 0.2 10^3/uL (0.0-0.7); EOSINOPHILS % (AUTO) 1.5 %; HCT - HEMATOCRIT 34.8 % (37.0-47.0); HGB - HEMOGLOBIN 11.9 g/dL (12.0-16.0); MEAN CORPUSCULAR HEMOGLOBIN 30.4 pg (27.0-31.0); MEAN CORPUSCULAR HGB CONC 34.2 g/dL (32.0-36.0); MEAN PLATELET VOLUME 10.1 fL (7.9-10.8); MONOCYTES # (AUTO) 0.9 10^3/uL (0.0-1.0); MONOCYTES % (AUTO) 8.2 %; NEUTROPHILS # (AUTO) 6.9 10^3/uL (1.5-6.6); NEUTROPHILS % (AUTO) 62.3 %; PLT - PLATELET COUNT 234 10^3/uL (130-450); RED BLOOD COUNT 3.91 10^6/uL (4.20-5.40); RED CELL DISTRIBUTION WIDTH 13.2 % (12.0-15.0); WHITE BLOOD COUNT 11.1 x10^3/uL (4.8-10.8)
[2023-08-14] MEDS: LACTATED RINGERS 1,000 ML IV ONE (07:40)
[2023-08-14 07:42] LABS: ALBUMIN 3.4 g/dL (3.2-5.5); ALBUMIN/GLOBULIN RATIO 1.6 (1.0-2.2); BILIRUBIN,TOTAL 0.3 mg/dL (0.2-1.0); CALCIUM 8.8 mg/dL (8.5-10.3); CREATININE 0.5 mg/dL (0.6-1.3); POTASSIUM 3.5 mmol/L (3.5-4.5); TOTAL PROTEIN 5.5 g/dL (6.4-8.9)
--- NOTE | 2023-08-14 07:45 | HISTORY & PHYSICAL EXAMINATION ---
Admit History - : 3 Parity: 1 : 1 - Mother's Labs Mother's Blood Type: positive: O Mother's RH: positive: Positive GBS: positive: Group B Step Negative Rubella Status: positive: Equivocal - Other Maternal History Other Maternal History: HPI: Patient is a 28-year-old -0-1-1 at 37 weeks 2 days gestation presents today for external cephalic version. She also has gestational hypertension, so depending on the success of the version, we will proceed with induction of labor versus section.. She has good movement. Denies loss of fluid. No RAWLS/BV or RUQP. No vaginal bleeding. Denies nausea and vomiting. Denies urinary urgency or dysuria. All other symptoms reviewed and were negative except per HPI. Course Record LMP: 02/13/2023 MARILYN by LMP: 11/20/2023 US Date 04/24/2023, US Age 21 weeks 2 days gestation, MARILYN by ultrasound: 09/02/2023 Final MARILYN: 09/02/2023 by 21-week ultrasound Problems: Late care: Did not find out she was until 21 weeks. OUD: methadone 134 mg daily through cliniic in [place]. gets UDS there and is staying clean. was on 160 mg with first and baby did not need morphine. GERD famotidine helped Breech presentation -ECV planned 08/14/23 with IOL vs CS after. Blood type: O+ Antibody screen: negative Initial H/H:late to care Rubella: equivocal Varicella: immune HBsAg: negative Hep C: N-R RPR/AB-EIA: N-R HIV: N-R PAP: History of LEEP and RANJANA-1. 09/12/22- NILM HR HPV+ DUE Gonorrhea/Chlamydia: Negative HSV: Denies self or partner Genetic testing: Mat21 negative COVID: Declines Influenza: Declines Anatomy Scan: 04/24/2023 Placenta: Posterior without previa Cord: 3VC CONOR: 15.9 cm EFW: 422 g, 99th percentile 50 gm OGCT: 135 Tdap: 2/7 Breast Pump Rx: 2/7 3rd trimester 05/11/2023 H/H: 12.5/36.7 Plt: 270 GBS: Negative Delivery Planning Contraception: Considering Nexplanon, possibly pills. PMH Methadone use Anemia PSH Hysteroscopy LEEP OB History -0-1-1 1. 01/11/2022, , on methadone, baby did well 2. 09/09/2022, SAB, D&C SH Denies tobacco and alcohol. On methadone for OUD. Family History Mother: [place] Father: [place] Brother: Benign brain tumor Grandfather heart condition, lung cancer Grandmother: Hyperlipidemia, COPD Aunt, breast cancer Allergies No known drug allergies Medications Methadone: 134 mg daily Renal vitamins Famotidine Physical exam: General: Alert, oriented, no acute distress Head: Normal cephalic atraumatic Eyes: PERRLA, extraocular motions intact. Respiratory: Normal rate of respiration. No accessory muscle use, normal respiratory effort. Cardiovascular: Regular rate and rhythm Abdomen: Gravid, nontender, nondistended Extremities: Normal range of motion Neuro: Oriented x3. Normal movements Psych: Appropriate mood and affect. Normal judgment and insight FHT: 125 beats per baseline, moderate variability, accelerations present, no decelerations. [place]: Quiescent Bedside ultrasound: Breech presentation, head to maternal right, Plan Breech presentation -Breech today on exam. -Discussed risk, benefits, alternatives to external cephalic version and she would like to proceed. Discussed transient heart rate changes, risk of abruption, rupture membranes. -Plan for neuraxial analgesia, terbutaline 37 weeks gestation Gestational hypertension -Plan to proceed with delivery today. Method of induction versus CS to be determined. Opioid use disorder -Will dose methadone as normal. Anticipate pain control depending on route of delivery. Rubella nonimmune -Vaccinate - HPI Vital Signs Temperature 98.2 F 08/14/23 07:30 Heart Rate 92 08/14/23 07:30 Respiratory Rate 16 08/14/23 07:30 Blood Pressure 136/81 H 08/14/23 07:30 Temperature 98.2 F 08/14/23 07:30 Heart Rate 92 08/14/23 07:30 Respiratory Rate 16 08/14/23 07:30 Blood Pressure 136/81 H 08/14/23 07:30 O2 Saturation If not protocol: Oxygen Flow, liters/minute - NST Procedure NST Procedure Start Time 16:39 Stop Time 17:01 Meds/Allgy - Home Medications Home Medications: Ambulatory Orders Medication Instructions Recorded Confirmed Albuterol Sulfate [Proair Hfa 1 - 2 puffs INH Q4H PRN #1 gm 11/08/21 09/09/22 Inhaler] Metoclopramide [Reglan] 10 mg PO Q6H PRN #20 tablet 04/18/23 predniSONE [Deltasone] 20 mg PO [id number] #21 tab 04/18/23 - Allergies Allergies/Adverse Reactions: Allergies Allergy/AdvReac Type Severity Reaction Status Date / Time steroids AdvReac Severe Unknown Uncoded 04/18/23 13:20 Physical - Abdominal Exam Vital Signs: Temp Pulse Resp BP Pulse Ox O2 Flow Rate 98.2 F 92 16 136/81 H 08/14/23 07:30 08/14/23 07:30 08/14/23 07:30 08/14/23 07:30 Plan for Labor - Plan For Labor I expect patient to be DC'd or transferred within 96 hours.: Yes
[2023-08-14] MEDS ORDERED: MINERAL OIL LIGHT 10 ML TOP SCH (08:00)
[2023-08-14] MEDS: TERBUTALINE 1 MG/ML VIAL SUBQ PRN (08:12)
[2023-08-14] MEDS ORDERED: LIDOCAINE 2%-EPI 1:100000 20 ML MDV ONE (08:56)
[2023-08-14] MEDS ORDERED: ROPIVACAINE 0.2% PF 10 ML VIAL ONE (08:56)
[2023-08-14] MEDS ORDERED: BUPIVACAINE 0.5% PF 10 ML VIAL ONE (08:56)
--- NOTE | 2023-08-14 09:18 | PROCEDURE REPORT ---
Hospitalist Procedure Note - Procedure Note Procedure Note: Procedure date: 08/14/2023 Procedure: External cephalic version Indication: Breech presentation, 37 weeks gestation, gestational hypertension Patient consent: Patient consented to the risks of external cephalic version including the risk of heart rate changes, bleeding, placental abruption, rupture membranes, emergency section, cord prolapse, hemorrhage, stillbirth. Discussed the benefits [place] avoiding a planned section. Discussed we are not successful we will abandon procedure and plan a section. Patient agrees to this and desires to proceed. Anesthesia: Spinal Complications: None Estimated blood loss: None Postop diagnosis: Unsuccessful external cephalic version, breech presentation, 37 weeks gestation, gestational hypertension Procedure summary: Patient is a 28-year-old -0-1-1 at 37 weeks 2 days gestation who presented for an external cephalic version for breech presentation. Time out was taken. She was taken to the triage room where spinal anesthesia was adequate. Under ultrasound guidance, the fetus was noted to be in breech presentation with head to maternal right upper quadrant and baby in delfina breech position. The patient was given terbutaline for uterine relaxation. Using gentle, steady pressure, the head was rotated counterclockwise as the buttocks was lifted out of the pelvis. Intermittent ultrasound was used to confirm movement. This was unsuccessful, so a clockwise roll was performed. Although we were able to get head to maternal left, we are not able to get past the maternal hips and keep fetus cephalic. Overall the procedure took approximately 30 minutes with breaks in between for monitoring and discussion. Patient was monitored with a reactive NST after the procedure. I appreciate the assistance of GILL Campos during this procedure, and the assistance during the case was instrumental to the patient's wellbeing.
[2023-08-14] MEDS ORDERED: ceFAZolin (2G) 2 GM in SODIUM CHLORIDE 0.9% MINIBAG 100 ML IV ONE (09:31)
[2023-08-14] MEDS ORDERED: ACETAMINOPHEN 500 MG TABLET PO ONE (09:31)
[2023-08-14] MEDS ORDERED: OXYTOCIN/SODIUM CHLORIDE 500 ML IV ONE (09:34)
[2023-08-14] MEDS: LACTATED RINGERS 1,000 ML IV SCH ×2 (09:34→16:59)
[2023-08-14] MEDS ORDERED: fentaNYL 100 MCG/2 ML VIAL ONE (09:36)
[2023-08-14] MEDS ORDERED: OXYTOCIN 10 UNIT/ML VIAL ONE (09:36)
[2023-08-14] MEDS ORDERED: SODIUM CHLORIDE 0.9% 10 ML VIAL IVP ONE (09:36)
[2023-08-14] MEDS ORDERED: MORPHINE PF 5 MG/10 ML VIAL ONE (09:37)
[2023-08-14 09:38] LABS: CREATININE,URINE 117.2 mg/dL
[2023-08-14 09:48] LABS: PROTEIN/CREATININE RATIO,URINE 3.1 (<=0.2)
[2023-08-14] MEDS: CITRIC ACID/SODIUM CITRATE 15 ML UDC PO ONE (10:37)
--- NOTE | 2023-08-14 11:11 | PHARMACY PROGRESS NOTE ---
- Best Possible Medication History Admit Date and Time: 08/14/23 0931 Processed by: Pharmacy Medications reviewed in ED?: No Medication History completed: Yes Patient Interview: Pt unable to participate Secondary Source(s): Physician records, Pharmacy records, Insurance records (CONFIRMED 154 MG METHADONE DOSE (SPLIT DOSE OF 77 MG BID) WITH [facility] ON 08/14/23) As the person ultimately responsible for medication therapy, providers are able to order a medication from an existing home medication list in [facility] via the "Reconcile Routine" prior to Confirmation of that medication by faculty support coordinator. Such practice is discouraged except when the physician, in their clinical judgment, deems that a medical need exists for a medication without regard to previous use.
[2023-08-14] MEDS ORDERED: fentaNYL 100 MCG/2 ML VIAL IT ONE (11:20)
[2023-08-14] MEDS ORDERED: MORPHINE PF 5 MG/10 ML VIAL IT ONE (11:24)
[2023-08-14] MEDS ORDERED: ACETAMINOPHEN 1,000 MG/100 ML 1,000 MG/100 ML BAG IV ONE (11:31)
[2023-08-14] MEDS ORDERED: ATROPINE ABBOJECT 1 MG/10 ML SYRINGE IVP PRN (11:39)
[2023-08-14] MEDS ORDERED: ePHEDrine 50 MG/ML VIAL IVP PRN ×2 (11:39)
[2023-08-14] MEDS ORDERED: diphenhydrAMINE INJ 50 MG/ML VIAL IVP PRN (11:39)
[2023-08-14] MEDS ORDERED: NALOXONE 0.4 MG/ML VIAL IVP PRN ×2 (11:39)
[2023-08-14] MEDS ORDERED: HYDROmorphone 0.5 MG/0.5 ML SYRINGE IVP PRN (11:39)
[2023-08-14] MEDS ORDERED: MORPHINE 2 MG/ML CARPUJECT IVP PRN (11:39)
[2023-08-14] MEDS ORDERED: METOCLOPRAMIDE 10 MG/2 ML VIAL IVP PRN ×2 (11:39)
[2023-08-14] MEDS ORDERED: KETOROLAC 30 MG/ML VIAL ONE (11:51)
[2023-08-14] MEDS ORDERED: LACTATED RINGERS 1,000 ML IV SCH (12:00)
[2023-08-14] MEDS ORDERED: KETAMINE 200 MG/20 ML VIAL ONE (12:06)
[2023-08-14] MEDS ORDERED: PROPOFOL 200 MG/20 ML VIAL IVP ONE (12:12)
[2023-08-14] MEDS: LACTATED RINGERS 700 ML IV ONE ×2 (12:50→13:20)
[2023-08-14] MEDS ORDERED: OXYTOCIN/SODIUM CHLORIDE 500 ML IV PRN (12:55)
[2023-08-14] MEDS ORDERED: ONDANSETRON ODT 4 MG TABLET TL PRN ×2 (12:55)
[2023-08-14] MEDS ORDERED: SIMETHICONE CHEW 80 MG TABLET PO PRN (12:55)
[2023-08-14] MEDS ORDERED: oxyCODONE 5 MG TABLET PO PRN (12:55)
[2023-08-14] MEDS ORDERED: FAMOTIDINE 20 MG TABLET PO PRN (12:56)
--- NOTE | 2023-08-14 12:58 | OPERATIVE REPORT ---
Operative Report - General Admit Date: 08/14/23 Procedure Date: 08/14/23 Planned Procedure: Low-transverse section Pre-Op Diagnosis: Breech presentation Procedure Performed: Low-transverse section Post Op Diagnosis: Breech presentation, status post primary low transverse section - Procedure Note Primary Surgeon: Oleksandr Aranda MD Secondary Surgeon: GILL Campos Anesthesia Provider: Dalton Veronica CRNA Anesthesia Technique: Spinal Pathology: None Estimated Blood Loss (mL): 700 Findings: Normal-appearing uterus, tubes, ovaries. in breech presentation. Clear amniotic fluid. Complications: None - Other Other Information/Narrative: Pre-Op diagnoses Breech presentation 37 weeks gestation Gestational hypertension Opioid use disorder Rubella nonimmune Failed external cephalic version. Postop diagnoses Same Status post primary low-transverse section Delivery of live pryor section was recommended. Risks, benefits and alternatives were discussed including but not limited to infection, bleeding that may require blood products or hysterectomy for life saving measures, injury to surrounding organs including but not limited to bowel, bladder, ureters, tubes and ovaries and/or the baby. Should injury occur it could require longer/additional surgery to repair. The patient stated understanding and desired to proceed. All questions were answered posed by patient. Prior to being taken to the OR, 2 grams of cefazolin IV were administered. The patient was taken to the operating room where regional anesthesia was found to be adequate. She was then prepared and draped in the usual sterile fashion in the dorsal supine position with a leftward tilt displacing the uterus. Romero was draining to gravity. SCDs were on bilateral lower extremities. Time out was taken. A pfannenstiel skin incision was then made with the scalpel and carried through to the underlying layer of fascia. The fascia was incised in the midline and the incision extended laterally with the Allen scissors. The superior aspect of the facial incision was then grasped with the Matias clamps, elevated and the underlying rectus muscles dissected off sharply. Attention was then turned to the inferior aspect of this incision which in a similar fashion was grasped, elevated with the Matias clamps and the rectus muscle dissected off sharply. The rectus muscles were in the midline. The peritoneum identified, grasped with the pick-ups and entered sharply with the Metzenbaum scissors. The peritoneal incision was then extended superiorly and inferiorly with good visualization of the bladder. The bladder blade was inserted. The vesicouterine peritoneum was identified, grasped with the pick-ups, and entered sharply with Metzenbaum scissors. This incision was then extended laterally and the bladder flap created digitally. The bladder blade was reinserted. The lower uterine segment was identified and incised in a transverse fashion with the scalpel. The uterine incision was then extended bluntly laterally. Artificial rupture of membranes demonstrated clear fluid. The bladder blade was removed. The fetus was in a delfina breech presentation. The pelvis was lifted through the hysterotomy and delivered to the level of the sacrum. The feet were extended, so was delivered until the feet could be delivered. After delivery the feet, the fetus was delivered to the level of the scapula. At that point, the left shoulder was rotated anteriorly and the left arm was flexed at the elbow medially rotated extended through the hysterotomy and delivered. The fetus was then rotated to the right shoulder anterior position and the right arm was similarly delivered. At that point the head was delivered, avoiding extension of the neck delivered atraumatically through the hysterotomy. The infants mouth and nose were bulb suctioned. was crying, so 1 minute of delayed cord clamping was performed. The umbilical cord was clamped times two and cut. The infant was handed to the pediatric team. The placenta was removed with gentle traction. Oxytocin was added to the IV fluid and was allowed to run freely. The uterus was exteriorized and cleared of all clots and debris. The uterine incision was inspected and found to be without any extensions and was repaired with 0 Vicryl in a running, locked fashion. A second imbricating layer was performed. An additional [id number] stitch was used to stop 1 bleeding area of the uterus. Upon inspection, the repaired hysterotomy was found to be hemostatic. The uterus was firm and returned to the abdomen. The gutters were cleared of all clots and debris. The muscle layer was examined and found to be hemostatic. The fascia was reapproximated with 0 Vicryl in a running fashion. The subcutaneous tissue was closed with 2-0 Vicryl. The skin was closed in a subcuticular fashion with 4-0 Monocryl. The patient tolerated the procedure well. Sponge, lap and needle counts were correct times three. The patient was taken to the recovery room in stable condition. was taken to the nursery for additional respiratory support. I appreciate the assistance of Kiah Pedro during this procedure, and the assistance in retraction, visualization, dissection, and overall assistance du ring the case were instrumental to the patient's wellbeing. APGARs: 5/2/5 weight: 2644 g
--- NOTE | 2023-08-14 13:12 | ANESTHESIA POST OP EVALUATION ---
Anesthesia Post Eval - Post Anesthesia Eval Vitals: Last Vital Signs Temp 36.3 C L 08/14/23 13:05 Pulse 64 08/14/23 13:05 Resp 17 08/14/23 13:05 BP 135/80 H 08/14/23 13:05 Pulse Ox 99 08/14/23 13:05 O2 Flow Rate CV Function Including HR & BP: Stable Pain Control: Satisfactory (07/11 with uterine palpation by RN) Nausea & Vomiting: Negative Mental Status: Baseline Respiratory Status: Airway Patent Hydration Status: Satisfactory Anesthesia Complications: None
[2023-08-14] MEDS: ACETAMINOPHEN 500 MG TABLET PO SCH (13:33)
[2023-08-14] MEDS: KETOROLAC 30 MG/ML VIAL IVP SCH (13:34)
--- NOTE | 2023-08-14 14:43 | CONSULTATION NOTE ---
Consultation Report: Patient c/o 11/10 pain, constant, deep to incision. Intrathecal narcotics were used for c/s, delaying any oral or IV narcotics patient can receive, per protocol. Regular methadone dose had been delayed for . Patient refused TAP blocks at this time r/t fear of needles and fear of pain. I explained that the pain would be temporary if we placed now and that any spinal effect that remains now for helping with TAP placement would be gone within the hour. Patient states she would be ok without TAP blocks. Delayed methadone do se now ok to give in OB. Continuous pulse ox to remain in place. Will continue to follow patient care and pain management plan.
[2023-08-14] MEDS: METHADONE 50 MG/5 ML ORAL SYRINGE PO SCH (15:01)
[2023-08-14] MEDS: SODIUM CHLORIDE FLUSH 0.9% 10 ML SYRINGE IVP SCH (18:31)
[2023-08-14] MEDS: DOCUSATE SODIUM 100 MG CAPSULE PO SCH (20:29)
[2023-08-14] MEDS ORDERED: METHADONE 50 MG/5 ML ORAL SYRINGE PO SCH (21:00)
[2023-08-15] MEDS: SODIUM CHLORIDE FLUSH 0.9% 10 ML SYRINGE IVP PRN (00:29)
[2023-08-15 05:24] LABS: BASOPHILS % (AUTO) 0.3 %; EOSINOPHILS # (AUTO) 0.2 10^3/uL (0.0-0.7); EOSINOPHILS % (AUTO) 1.8 %; HGB - HEMOGLOBIN 11.2 g/dL (12.0-16.0); LYMPHOCYTES # (AUTO) 3.1 10^3/uL (1.5-3.5); LYMPHOCYTES % (AUTO) 29.3 %; MEAN CORPUSCULAR HEMOGLOBIN 30.5 pg (27.0-31.0); MEAN CORPUSCULAR HGB CONC 33.9 g/dL (32.0-36.0); MEAN CORPUSCULAR VOLUME 89.9 fL (81.0-99.0); MEAN PLATELET VOLUME 9.6 fL (7.9-10.8); MONOCYTES # (AUTO) 0.9 10^3/uL (0.0-1.0); MONOCYTES % (AUTO) 8.5 %; NEUTROPHILS # (AUTO) 6.4 10^3/uL (1.5-6.6); NEUTROPHILS % (AUTO) 59.6 %; PLT - PLATELET COUNT 211 10^3/uL (130-450); RED BLOOD COUNT 3.67 10^6/uL (4.20-5.40); RED CELL DISTRIBUTION WIDTH 13.4 % (12.0-15.0); WHITE BLOOD COUNT 10.7 x10^3/uL (4.8-10.8)
[2023-08-15] MEDS: PRENATAL VITAMIN TABLET PO SCH (07:51)
[2023-08-15 08:56] VITALS: BP 131/77; O2SAT 97
--- NOTE | 2023-08-15 09:02 | Discharge Plan ---
Discharge Plan Problem Reviewed?: Yes Disposition: Home, Self Care Condition: Good Activity Restrictions: Additional Comments Shower Restrictions: No Instruction Topics: C Section Dc, Depression No Smoking: If you smoke, Please STOP! Call for help. Follow-up with: Oleksandr Aranda MD [Provider Admit Priv/Credential] -
--- NOTE | 2023-08-15 09:02 | DISCHARGE SUMMARY ---
Discharge Summary Admit Date: 08/14/23 Discharge Date: 08/15/23 Discharging Provider: Oleksandr Aranda Code Status: Attempt Resuscitation Condition at Discharge: Good Discharge Disposition: 01 Home, Self Care - DIAGNOSES Admission Diagnoses: Breech presentation 37 weeks gestation Gestational hypertension Opioid use disorder Rubella nonimmune Discharge Diagnoses with Status of Each Condition: Same Failed external cephalic version Low-transverse section Deliver live pryor - HPI History of Present Illness: Subjective Patient reports she is doing well. Lochia appropriate. Denies heavy bleeding. Ambulating. Pelvic and abdominal pain well-controlled. Tolerating oral intake. Diet: Regular. Voiding without difficulty. Passing flatus. Denies BM. Baby was transferred last night. Per patient, on approximate 25% O2. Pumping going well Denies feeling lightheaded, dizzy or excessively fatigued. Control: Nexplanon at 6 weeks. Declines today. Objective Temp Pulse Resp BP Pulse Ox O2 Flow Rate 99.0 F 72 16 131/77 H 97 08/15/23 08:40 08/15/23 08:40 08/15/23 08:40 08/15/23 08:40 08/15/23 08:40 General: Alert, oriented, no apparent distress. Cardiovascular: Regular rate. Regular rhythm. Lungs: No increased work of breathing. Abdomen: Uterus firm. Below umbilicus. No guarding or rebound. Extremities: No pain on palpation. No cords palpated. Distal pulses intact. Incision: Clean, dry, and intact. Removed bandage today. - HOSPITAL COURSE Hospital Course: Patient was admitted at 37 weeks gestation for planned external cephalic version due to breech presentation. She also gestational hypertension. The version was unsuccessful, so we proceeded with a primary low-transverse section with breech extraction. had some respiratory issues after and was transferred. Patient did well on her home dose of methadone with pain control and desired to discharge at day 1. We discussed pain control options and she was comfortable with the dose of opioids. She will call if this worsens. She has follow-up in 1 week. - ALLERGIES Allergies/Adverse Reactions: Allergies Allergy/AdvReac Type Severity Reaction Status Date / Time steroids AdvReac Severe Unknown Uncoded 08/14/23 09:27 - MEDICATIONS Home Medications: Ambulatory Orders Medication Instructions Recorded Confirmed Famotidine [Pepcid] 20 mg PO BID PRN 08/14/23 08/14/23 Methadone [Methadone IntensoL] 77 mg PO BID 08/14/23 08/14/23 Pnv,Calcium 72/Iron/Folic Acid 1 tab PO DAILY 08/14/23 08/14/23 [Westab Plus Tablet] - LABS Result Diagrams: 08/15/23 05:15 08/14/23 07:18 - FOLLOW UP Follow Up: With Oleksandr Aranda MD in 1 week - TIME SPENT Time Spent in Discharge (Minutes): 30
--- NOTE | 2023-08-15 12:39 | Labor Flowsheet ---
Labor Flowsheet Datetime Report Generated by CPN: 08/15/2023 12:39 Datetime: 08/14/2023 14:16 VAGINAL EXAM Membranes Ruptured Date/Time: 08/14/2023 11:45 Membranes Rupture Method: Artificial Amniotic Fluid Color: Clear Amniotic Fluid Amount: Moderate Amniotic Fluid Odor: Normal Datetime: 08/14/2023 10:03 ASSESSMENT A Monitor Mode: External US FHR Baseline Rate : 120 Variability: Moderate 6-25 bpm Accelerations: 15X15 Decelerations: None Category: Category I Datetime: 08/14/2023 10:00 VITAL SIGNS NBP Sys/Sri/Mean (mmHg): 104 : 53 : 64 Pulse: 69 COMMUNICATION LaborFlag: Labor Datetime: 08/14/2023 09:59 SpO2 (%): 97 Datetime: 08/14/2023 09:48 UTERINE ACTIVITY Monitor Mode: External Frequency (min): none Resting Tone (Palpate): Relaxed Actions for Decelerations: Side to Side; IV Bolus; Provider Notified Datetime: 08/14/2023 09:47 Patient Care Comments: IV bolus completed Datetime: 08/14/2023 09:34 Patient Position/Activity: Left Lateral Datetime: 08/14/2023 09:16 Comments: wandering baseline Datetime: 08/14/2023 09:05 I/O Interventions: Romero Cath Inserted Datetime: 08/14/2023 08:06 Epidural Procedure: Loading Dose Datetime: 08/14/2023 08:04 Monitor Interventions for FHR: Ultrasound Adjusted Datetime: 08/14/2023 07:46 PROCEDURE TIME OUT Procedure Verify: Correct Patient Identity; Correct Side and Site are Marked; Accurate Procedure Co nsent Form; Agreement on Procedure to be Done; Correct Patient Position; Relevant Images and Results are Properly Labeled and Displayed; Addressed Need to Administer Antibiotics or Fluids for Irrigation ; Safety Precautions Based on Patient History or Medication Use ANESTHESIA Anesthesia Plans: Spinal Epidural Positioning: Sitting Datetime: 08/14/2023 07:40 PATIENT CARE IV/Blood Work: IV Bolus Started Datetime: 08/14/2023 06:56 Stage of : Labor
[2023-08-15] MEDS ORDERED: IBUPROFEN 600 MG TABLET PO SCH (13:00)
== END 2023-08-15 10:00 | disposition home or self-care (01) | DRG 787 ==
LOC: WFO 06:47 → FBP 06:50 → WFO 09:30 → FBP 09:31
PROVIDERS: ADMIT Obstetrics & Gynecology; ATTEND Obstetrics & Gynecology
PROC: 10S0XZZ Reposition Products of Conception, External Approach (ICD-10-PCS; 2023-08-14)
PROC: 10D00Z1 Extraction of Products of Conception, Low, Open Approach (ICD-10-PCS; principal; 2023-08-14 11:00)
DX: O32.1XX0 Maternal care for breech presentation, not applicable or unspecified (principal); O99.324 Drug use complicating childbirth; F11.10 Opioid abuse, uncomplicated; Z3A.37 37 weeks gestation of pregnancy; Z37.0 Single live birth; O13.4 Gestational [pregnancy-induced] hypertension without significant proteinuria, complicating childbirth; O99.62 Diseases of the digestive system complicating childbirth; K21.9 Gastro-esophageal reflux disease without esophagitis
CPT/HCPCS: 36415; 80053; 82570; 84156; 85025; 86850; 86900; 86901; 99215; A9270; J0131; J2274; J3490; J7120

== ENCOUNTER 2023-10-15 23:49 | Inpatient (IN) | payer MEDICAID ==
[2023-10-16] MEDS: IPRATROPIUM/ALBUTEROL 3 ML NEB INH STA (00:15)
[2023-10-16] MEDS: DEXAMETHASONE 10 MG/ML VIAL PO STA (00:19)
[2023-10-16] MEDS: CHERRY SYRUP 10 ML UDC PO ONE (00:19)
--- NOTE | 2023-10-16 00:46 | ED Physician Documentation ---
History of Present Illness - Stated complaint Stated Complaint: SOA/COUGH - Chief complaint Chief Complaint: Resp - History obtained from History obtained from: Patient - Additonal information Additional information: 28yF with pmh asthma p/w asthma exacerbation tonight. endorses sore throat, congestion. 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 : Other HEENT: None Psych: Depression Musculoskeletal: None Derm: Eczema - Past Surgical History Past Surgical History: Yes General: EGD /BREWERY REPRESENTATIVE: Dilation and currettage HEENT: Tonsil/Adenoidectomy - Present Medications Home Medications: Ambulatory Orders Medication Instructions Recorded Confirmed Famotidine [Pepcid] 20 mg PO BID PRN 08/14/23 08/14/23 Methadone [Methadone IntensoL] 77 mg PO BID 08/14/23 08/14/23 Pnv,Calcium 72/Iron/Folic Acid 1 tab PO DAILY 08/14/23 08/14/23 [Westab Plus Tablet] Albuterol 2.5 mg INH Q4H PRN #30 ml 10/16/23 predniSONE [Prednisone 21-TAB dose 60 mg PO QDAC 6 Days #21 tab 10/16/23 pack] - Allergies Allergies/Adverse Reactions: Allergies Allergy/AdvReac Type Severity Reaction Status Date / Time steroids AdvReac Severe Unknown Uncoded 10/16/23 00:03 - Social History Does the pt smoke?: Yes Smoking Status: Current every day smoker Does the pt drink ETOH?: No Does the pt have substance abuse?: No - Immunizations Immunizations are current?: Yes Immunizations: TDAP current <10years - POLST Patient has POLST: No PD ED PE NORMAL - Vitals Vital signs reviewed: Yes - General General: Alert and oriented X 3, No acute distress, Well developed/nourished - HEENT HEENT: Atraumatic, PERRL, EOMI, Moist mucous membranes - Neck Neck: Supple, no meningeal sign - Cardiac Cardiac: RRR - Respiratory Respiratory: Other (BL wheezing) - Abdomen Abdomen: Non tender, Non distended Results - Vitals Vitals: Vital Signs - 24 hr 10/16/23 10/16/23 10/16/23 00:00 00:22 00:50 Temperature 36.3 C L Heart Rate 96 118 H 96 Respiratory 22 28 H 20 Rate Blood Pressure 126/72 O2 Saturation 87 L If not protocol 6 : Oxygen Flow, liters/minute 10/16/23 10/16/23 01:00 01:27 Temperature Heart Rate 98 105 H Respiratory 24 24 Rate Blood Pressure 147/77 H O2 Saturation 92 If not protocol 12 12 : Oxygen Flow, liters/minute Oxygen O2 Source Oxymask - Labs Labs: Laboratory Tests 10/15/23 10/16/23 10/16/23 23:58 01:19 01:19 WBC 9.3 RBC 4.13 L Hgb 11.9 L Hct 37.3 MCV 90.3 MCH 28.8 MCHC 31.9 L RDW 12.6 Plt Count 224 MPV 8.8 Neut # (Auto) 5.0 Lymph # (Auto) 2.7 Hamblen # (Auto) 0.8 Eos # (Auto) 0.7 Baso # (Auto) 0.0 Absolute Nucleated RBC 0.00 Nucleated RBC % 0.0 VBG pH VBG pCO2 VBG pO2 VBG HCO3 VBG Total CO2 VBG O2 Saturation VBG Base Excess Sodium 139 Potassium 3.3 L Chloride 105 Carbon Dioxide 26 Anion Gap 8.0 BUN 9 Creatinine 0.6 Estimated GFR (MDRD) 118 Glucose 114 H Calcium 9.0 Total Bilirubin 0.3 AST 57 H ALT 88 H Alkaline Phosphatase 103 Total Protein 6.7 Albumin 4.1 Globulin 2.6 Albumin/Globulin Ratio 1.6 Nasal Adenovirus (PCR) NOT DETECTED Nasal B. parapertussis DNA (PCR) NOT DETECTED Nasal Coronavir 229E PCR NOT DETECTED Nasal Coronavir HKU1 PCR NOT DETECTED Nasal Coronavir NL63 PCR NOT DETECTED Nasal Coronavir OC43 PCR NOT DETECTED Nasal Enterovir/Rhinovir PCR DETECTED A Nasal Influenza B PCR NOT DETECTED Nasal Influenza A PCR NOT DETECTED Nasal Parainfluen 1 PCR NOT DETECTED Nasal Parainfluen 2 PCR NOT DETECTED Nasal Parainfluen 3 PCR NOT DETECTED Nasal Parainfluen 4 PCR NOT DETECTED Nasal RSV (PCR) NOT DETECTED Nasal B.pertussis DNA PCR NOT DETECTED Nasal C.pneumoniae (PCR) NOT DETECTED Clay Human Metapneumo PCR NOT DETECTED Nasal M.pneumoniae (PCR) NOT DETECTED Nasal SARS-CoV-2 (PCR) NOT DETECTED 10/16/23 01:19 WBC RBC Hgb Hct MCV MCH MCHC RDW Plt Count MPV Neut # (Auto) Lymph # (Auto) Hamblen # (Auto) Eos # (Auto) Baso # (Auto) Absolute Nucleated RBC Nucleated RBC % VBG pH 7.325 VBG pCO2 46.4 VBG pO2 28.4 VBG HCO3 23.6 VBG Total CO2 25.1 VBG O2 Saturation 50.9 L VBG Base Excess -2.6 L Sodium Potassium Chloride Carbon Dioxide Anion Gap BUN Creatinine Estimated GFR (MDRD) Glucose Calcium Total Bilirubin AST ALT Alkaline Phosphatase Total Protein Albumin Globulin Albumin/Globulin Ratio Nasal Adenovirus (PCR) Nasal B. parapertussis DNA (PCR) Nasal Coronavir 229E PCR Nasal Coronavir HKU1 PCR Nasal Coronavir NL63 PCR Nasal Coronavir OC43 PCR Nasal Enterovir/Rhinovir PCR Nasal Influenza B PCR Nasal Influenza A PCR Nasal Parainfluen 1 PCR Nasal Parainfluen 2 PCR Nasal Parainfluen 3 PCR Nasal Parainfluen 4 PCR Nasal RSV (PCR) Nasal B.pertussis DNA PCR Nasal C.pneumoniae (PCR) Clay Human Metapneumo PCR Nasal M.pneumoniae (PCR) Nasal SARS-CoV-2 (PCR) PD Medical Decision Making - ED course ED course: 28yF p/w acute asthma exacerbation, improving with duonebs and steroids however she is still experiencing wheezing and hypoxia after several rounds of treatments. plan to admit to observe and continue treatments. Departure - Departure Clinical Impression: Asthma Condition: Stable Instructions: Asthma Dc Prescriptions: Albuterol 2.5 mg INH Q4H PRN #30 ml PRN Reason: Wheezing predniSONE [Prednisone 21-TAB dose pack] 60 mg PO QDAC 6 Days #21 tab Comments: You were seen in the emergency department for asthma. [facility]. Please follow-up with your primary care provider and return to the emergency department if you have any new or worsening symptoms or other concerns. Forms: PCP List
[2023-10-16] MEDS: ALBUTEROL NEB 2.5 MG/3 ML INH STA ×2 (00:50→01:25)
[2023-10-16 01:03] LABS: B. PARAPERTUSSIS- RESP PCR PAN NOT DETECTED; B. PERTUSSIS- RESP PCR PANEL NOT DETECTED; C. PNEUMONIAE- RESP PCR PANEL NOT DETECTED; CORONAVIRUS 229E-RESP PCR NOT DETECTED; CORONAVIRUS HKU1-RESP PCR NOT DETECTED; CORONAVIRUS NL63-RESP PCR NOT DETECTED; CORONAVIRUS OC43-RESP PCR NOT DETECTED; HUMAN METAPNEUMOVIRUS NOT DETECTED; INFLUENZA A- RESP PCR PANEL NOT DETECTED; INFLUENZA B - RESP PCR PANEL NOT DETECTED; M. PNEUMONIAE- RESP PCR PANEL NOT DETECTED; PARAINFLUENZA VIRUS 1 NOT DETECTED; PARAINFLUENZA VIRUS 2 NOT DETECTED; PARAINFLUENZA VIRUS 3 NOT DETECTED; PARAINFLUENZA VIRUS 4 NOT DETECTED; RHINOVIRUS/ENTEROVIRUS DETECTED; RSV- RESP PCR PANEL NOT DETECTED; SARS-CoV-2 -RESP PCR PANEL NOT DETECTED
[2023-10-16] MEDS: SODIUM CHLORIDE 0.9% 1,000 ML IV STA (01:23)
[2023-10-16 01:24] LABS: VBG BASE EXCESS -2.6 mmol/L (-2 - +2); VBG HCO3 23.6 mmol/L (23-28); VBG OXYGEN SATURATION 50.9 % (60-80); VBG PCO2 46.4 mmHg (41-51); VBG PH 7.325 (7.31-7.41); VBG PO2 28.4 mmHg (25-47); VBG TOTAL CO2 25.1 mmol/L (24-29)
[2023-10-16 01:25] LABS: BASOPHILS % (AUTO) 0.2 %; EOSINOPHILS # (AUTO) 0.7 10^3/uL (0.0-0.7); EOSINOPHILS % (AUTO) 7.8 %; HCT - HEMATOCRIT 37.3 % (37.0-47.0); HGB - HEMOGLOBIN 11.9 g/dL (12.0-16.0); LYMPHOCYTES # (AUTO) 2.7 10^3/uL (1.5-3.5); LYMPHOCYTES % (AUTO) 29.4 %; MEAN CORPUSCULAR HEMOGLOBIN 28.8 pg (27.0-31.0); MEAN CORPUSCULAR HGB CONC 31.9 g/dL (32.0-36.0); MEAN CORPUSCULAR VOLUME 90.3 fL (81.0-99.0); MEAN PLATELET VOLUME 8.8 fL (7.9-10.8); MONOCYTES # (AUTO) 0.8 10^3/uL (0.0-1.0); MONOCYTES % (AUTO) 8.5 %; NEUTROPHILS % (AUTO) 53.8 %; PLT - PLATELET COUNT 224 10^3/uL (130-450); RED BLOOD COUNT 4.13 10^6/uL (4.20-5.40); RED CELL DISTRIBUTION WIDTH 12.6 % (12.0-15.0); WHITE BLOOD COUNT 9.3 x10^3/uL (4.8-10.8)
--- NOTE | 2023-10-16 01:38 | XRAY Report ---
PROCEDURE: Chest 2V INDICATIONS: soa TECHNIQUE: 2 views of the chest were acquired. COMPARISON: Chest radiograph 04/02/2021. FINDINGS: Surgical changes and devices: None. Lungs and pleura: No pleural effusions or pneumothorax. Lungs are clear. Mediastinum: Mediastinal contours appear normal. Heart size is normal. Bones and chest wall: No suspicious bony lesions. Overlying soft tissues appear unremarkable. IMPRESSION: No acute cardiopulmonary process. Reviewed by: Inez Brennan MD, PhD on 10/16/2023 1:37 AM PDT Approved by: Inez Brennan MD, PhD on 10/16/2023 1:37 AM PDT Station ID: [id number]
[2023-10-16 01:41] LABS: ALBUMIN 4.1 g/dL (3.2-5.5); ALBUMIN/GLOBULIN RATIO 1.6 (1.0-2.2); ALKALINE PHOSPHATASE 103 IU/L (42-121); ALT ALANINE AMINOTRANSFERASE 88 IU/L (10-60); AST ASPARTATE AMINOTRANSFERASE 57 IU/L (10-42); BILIRUBIN,TOTAL 0.3 mg/dL (0.2-1.0); BUN - BLOOD UREA NITROGEN 9 mg/dL (6-20); CARBON DIOXIDE - CO2 26 mmol/L (21-32); CHLORIDE 105 mmol/L (101-111); CREATININE 0.6 mg/dL (0.6-1.3); GFR - MDRD 118 (>89); GLUCOSE 114 mg/dL (74-104); POTASSIUM 3.3 mmol/L (3.5-4.5); SODIUM 139 mmol/L (135-145); TOTAL PROTEIN 6.7 g/dL (6.4-8.9)
[2023-10-16 02:10] LABS: LIPASE < 10 U/L (11-82)
[2023-10-16] MEDS ORDERED: IBUPROFEN 400 MG TABLET PO PRN (02:20)
[2023-10-16] MEDS ORDERED: ACETAMINOPHEN 325 MG TABLET PO PRN (02:20)
[2023-10-16] MEDS ORDERED: IPRATROPIUM/ALBUTEROL 3 ML NEB INH PRN (02:26)
[2023-10-16] MEDS: SODIUM CHLORIDE 0.9% 1,000 ML IV SCH (02:30)
[2023-10-16] MEDS: POTASSIUM CHLORIDE 20 MEQ TABLET PO STA (02:45)
[2023-10-16] MEDS: MAGNESIUM SULFATE 2 GRAM 2 GM/50 ML BAG IV ONE (02:45)
--- NOTE | 2023-10-16 02:59 | HISTORY & PHYSICAL EXAMINATION ---
Chief Complaint - Chief Complaint Chief Complaint: SOB and cough "My Asthma is acting up " History of Present Illness - Admitted From Admitted From:: Home - History Obtained From Records Reviewed: Yes History obtained from: Patient and ER team and chart review Exam Limitations: None - History of Present Illness HPI Comment/Other: 28yF with pmh asthma p/w asthma exacerbation tonight. endorses sore throat, congestion. denies hemoptysis, fever, cp, leg swelling. 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 Patient is in now pain, I have informed her that I am in State of [place] and this is a telemedicine visit and she gives her permission for the telemedicine visit- this was discussed with her at the start of our conversation, she also understands that she will be seen face to face in am by my colleague. Her heart rate has improved she still is on 15 liters of face mask. wheezing is improving, she also has been informed about Rhinovirus as well as knows she will be given K and Mg this am. Patient denies any other active complaints. 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 : reports: Other HEENT: reports: None Psych: reports: Depression Musculoskeletal: reports: None Derm: reports: Eczema MRSA Hx?: No - Past Surgical History General: reports: EGD /RECEIVING SUPERVISOR: reports: Dilation and currettage HEENT: reports: Tonsil/Adenoidectomy - POLST Patient has POLST: No Meds/Allgy - Home Medications Home Medications: Ambulatory Orders Medication Instructions Recorded Confirmed Famotidine [Pepcid] 20 mg PO BID PRN 08/14/23 08/14/23 Methadone [Methadone IntensoL] 77 mg PO BID 08/14/23 08/14/23 Pnv,Calcium 72/Iron/Folic Acid 1 tab PO DAILY 08/14/23 08/14/23 [Westab Plus Tablet] Albuterol 2.5 mg INH Q4H PRN #30 ml 10/16/23 predniSONE [Prednisone 21-TAB dose 60 mg PO QDAC 6 Days #21 tab 10/16/23 pack] - Allergies Allergies/Adverse Reactions: Allergies Allergy/AdvReac Type Severity Reaction Status Date / Time steroids AdvReac Severe Unknown Uncoded 10/16/23 00:03 Review of Systems - Respiratory Respiratory: reports: Cough, Wheezing, SOB with exertion Prior Level of Functionality: Indepdendent with ADL Exam - Vital Signs Vital Signs: Vital Signs x48h Temp Pulse Resp BP Pulse Ox O2 Flow Rate 10/16/23 01:27 105 H 24 12 10/16/23 01:00 98 24 147/77 H 92 12 10/16/23 00:50 96 20 6 10/16/23 00:22 118 H 28 H 10/16/23 00:00 36.3 C L 96 22 126/72 87 L - Physical Exam General Appearance: positive: No acute distress, Alert Eyes Bilateral: positive: Normal inspection, PERRL ENT: positive: ENT inspection nml, Pharynx nml, No signs of dehydration Neck: positive: Nml inspection, Thyroid nml, No JVD Respiratory: positive: Wheezes Cardiovascular: positive: Regular rate & rhythm, Diastolic murmur Abdomen: positive: Non-tender Skin: positive: Color nml Neurologic/Psychiatric: positive: Oriented x3, CN's nml (2-12) Sepsis Event Note (H) - Evaluation Current Stage of Sepsis: Ruled out Conclusion/Plan - Problem List (1) Asthma Qualifiers: Asthma severity: moderate Asthma complication type: with acute exacerbation Qualified Code(s): J45.41 - Moderate persistent asthma with (acute) exacerbation (2) Rhinovirus Conclusion/Plan: 28 yr admitted for observation with 1. Acute on chronic asthma exacerbation 2.Hypokalemia 3. Anemia 4. Tranaminitis' 5. On Chronic Methadone 6. Rhinovirus +ve 7. Anemia 8.Rule out Dm 7. R/O Iron def anemia Recommendations Admit for observation Duonebs KCL replacement Mg check A1c, Iron level Monitor LFT Short dose of steroids May need work up for transminitis if getting worse ? fatty liver ? hepatitis, repeat labs SCD for DVT prophylaxis - Lab Results Fish Bones: 10/16/23 01:19 10/16/23 01:19 - Diagnostic Imaging Results Diagnostic Imaging Results: positive: Final report reviewed
[2023-10-16] MEDS: SODIUM CHLORIDE FLUSH 0.9% 10 ML SYRINGE IVP PRN (05:06)
[2023-10-16 05:42] LABS: ALBUMIN 3.9 g/dL (3.2-5.5); ALBUMIN/GLOBULIN RATIO 1.6 (1.0-2.2); BILIRUBIN,TOTAL 0.3 mg/dL (0.2-1.0); CALCIUM 8.5 mg/dL (8.5-10.3); CREATININE 0.6 mg/dL (0.6-1.3); POTASSIUM 3.9 mmol/L (3.5-4.5); TOTAL PROTEIN 6.4 g/dL (6.4-8.9)
[2023-10-16] MEDS: predniSONE 20 MG TABLET PO SCH (08:00)
--- NOTE | 2023-10-16 08:52 | PROVIDER PROGRESS NOTE ---
Subjective - Prog Note Date Prog Note Date: 10/16/23 Prog Note Time: 08:49 - Subjective Pt reports feeling: Improved Subjective: Feels better than at admission,, but still short of breath. She is on an oxygen mask at 15 L and is symptomatic while trying to eat her breakfast. Readily volunteers to me that she quit smoking about a week ago. Has a primary care provider at [facility], [place] but cannot tell me the name of this person. Current Medications - Current Medications Current Medications: Medications Albuterol/Ipratropium (Ipratropium/Albuterol 3 Ml Neb) 3 ml INH RTQID [facility] Last Admin: 10/16/23 10:50 Dose: 3 ml Budesonide (Budesonide 0.5 Mg/2 Ml Neb) 0.5 mg INH RTBID [facility]ITRI Famotidine (Famotidine 20 Mg Tablet) 20 mg PO DAILY [facility] Last Admin: 10/16/23 09:16 Dose: Not Given Ibuprofen (Ibuprofen 400 Mg Tablet) 400 mg PO Q4HR PRN PRN Reason: Pain 1 to 4 Acetaminophen (Acetaminophen 325 Mg Tablet) 650 mg PO Q4HR PRN PRN Reason: Pain 1 to 4, or Fever Methadone HCl (Methadone 50 Mg/5 Ml Oral Syringe) 160 mg PO DAILY [facility] Discontinued Medications Potassium Chloride (Potassium Chloride 20 Meq Tablet) 40 meq PO ONCE STA Stop: 10/16/23 02:24 Last Admin: 10/16/23 02:45 Dose: 40 meq Methylprednisolone Sodium Succinate (Methylprednisolone Succinate 125 Mg/2 Ml Vial) 125 mg IVP ONCE ONE Stop: 10/16/23 11:01 Last Admin: 10/16/23 11:09 Dose: 125 mg Objective - Vital Signs/Intake & Output Vital Signs: Vital Signs x48h Temp Pulse Pulse Resp BP BP Pulse Ox 10/16/23 08:00 36.8 C 98 16 119/72 93 10/16/23 05:00 37.1 C 102 H 14 112/67 92 10/16/23 04:00 101 H 22 109/66 93 10/16/23 03:00 101 H 24 124/69 98 10/16/23 01:27 105 H 24 10/16/23 01:00 98 24 147/77 H 92 10/16/23 00:50 96 20 O2 Flow Rate 10/16/23 08:00 15 10/16/23 05:00 5 10/16/23 04:00 15 10/16/23 03:00 15 10/16/23 01:27 12 10/16/23 01:00 12 10/16/23 00:50 6 Intake & Output: Intake & Output 10/13/23 10/14/23 10/15/23 10/16/23 23:59 23:59 23:59 23:59 Intake Total 1300 Balance 1300 - Objective General Appearance: positive: Mild distress Eyes Bilateral: positive: Normal inspection ENT: positive: ENT inspection nml Neck: positive: Nml inspection Respiratory: positive: Chest non-tender, No respiratory distress, Wheezes, Rales Cardiovascular: positive: Regular rate & rhythm Abdomen: positive: No distention Back: positive: Nml inspection Skin: positive: Color nml Extremities: positive: Non-tender Neurologic/Psychiatric: positive: Oriented x3 - Lab Results Fish Bones: 10/16/23 01:19 10/16/23 05:23 Other Labs: Lab Results x24hrs 10/16/23 10/16/23 10/16/23 Range/Units 05:23 01:19 01:19 WBC (4.8-10.8) x10^3/uL RBC (4.20-5.40) 10^6/uL Hgb (12.0-16.0) g/dL Hct (37.0-47.0) % MCV (81.0-99.0) fL MCH (27.0-31.0) pg MCHC (32.0-36.0) g/dL RDW (12.0-15.0) % Plt Count (130-450) 10^3/uL MPV (7.9-10.8) fL Neut # (Auto) (1.5-6.6) 10^3/uL Lymph # (Auto) (1.5-3.5) 10^3/uL Preston # (Auto) (0.0-1.0) 10^3/uL Eos # (Auto) (0.0-0.7) 10^3/uL Baso # (Auto) (0.0-0.1) 10^3/uL Absolute Nucleated RBC x10^3/uL Nucleated RBC % /100WBC VBG pH 7.325 (7.31-7.41) VBG pCO2 46.4 (41-51) mmHg VBG pO2 28.4 (25-47) mmHg VBG HCO3 23.6 (23-28) mmol/L VBG Total CO2 25.1 (24-29) mmol/L VBG O2 Saturation 50.9 L (60-80) % VBG Base Excess -2.6 L (-2 - +2) mmol/L Sodium 138 139 (135-145) mmol/L Potassium 3.9 3.3 L (3.5-4.5) mmol/L Chloride 108 105 (101-111) mmol/L Carbon Dioxide 22 26 (21-32) mmol/L Anion Gap 8.0 8.0 (6-13) BUN 8 9 (6-20) mg/dL Creatinine 0.6 0.6 (0.6-1.3) mg/dL Estimated GFR (MDRD) 118 118 (>89) Glucose 139 H 114 H (74-104) mg/dL Calcium 8.5 9.0 (8.5-10.3) mg/dL Total Bilirubin 0.3 0.3 (0.2-1.0) mg/dL AST 56 H 57 H (10-42) IU/L ALT 86 H 88 H (10-60) IU/L Alkaline Phosphatase 104 103 (42-121) IU/L Total Protein 6.4 6.7 (6.4-8.9) g/dL Albumin 3.9 4.1 (3.2-5.5) g/dL Globulin 2.5 2.6 (2.1-4.2) g/dL Albumin/Globulin Ratio 1.6 1.6 (1.0-2.2) Lipase < 10 L (11-82) U/L Nasal Adenovirus (PCR) Nasal B. parapertussis DNA (PCR) Nasal Coronavir 229E PCR Nasal Coronavir HKU1 PCR Nasal Coronavir NL63 PCR Nasal Coronavir OC43 PCR Nasal Enterovir/Rhinovir PCR Nasal Influenza B PCR Nasal Influenza A PCR Nasal Parainfluen 1 PCR Nasal Parainfluen 2 PCR Nasal Parainfluen 3 PCR Nasal Parainfluen 4 PCR Nasal RSV (PCR) Nasal B.pertussis DNA PCR Nasal C.pneumoniae (PCR) Clay Human Metapneumo PCR Nasal M.pneumoniae (PCR) Nasal SARS-CoV-2 (PCR) 10/16/23 10/15/23 Range/Units 01:19 23:58 WBC 9.3 (4.8-10.8) x10^3/uL RBC 4.13 L (4.20-5.40) 10^6/uL Hgb 11.9 L (12.0-16.0) g/dL Hct 37.3 (37.0-47.0) % MCV 90.3 (81.0-99.0) fL MCH 28.8 (27.0-31.0) pg MCHC 31.9 L (32.0-36.0) g/dL RDW 12.6 (12.0-15.0) % Plt Count 224 (130-450) 10^3/uL MPV 8.8 (7.9-10.8) fL Neut # (Auto) 5.0 (1.5-6.6) 10^3/uL Lymph # (Auto) 2.7 (1.5-3.5) 10^3/uL Preston # (Auto) 0.8 (0.0-1.0) 10^3/uL Eos # (Auto) 0.7 (0.0-0.7) 10^3/uL Baso # (Auto) 0.0 (0.0-0.1) 10^3/uL Absolute Nucleated RBC 0.00 x10^3/uL Nucleated RBC % 0.0 /100WBC VBG pH (7.31-7.41) VBG pCO2 (41-51) mmHg VBG pO2 (25-47) mmHg VBG HCO3 (23-28) mmol/L VBG Total CO2 (24-29) mmol/L VBG O2 Saturation (60-80) % VBG Base Excess (-2 - +2) mmol/L Sodium (135-145) mmol/L Potassium (3.5-4.5) mmol/L Chloride (101-111) mmol/L Carbon Dioxide (21-32) mmol/L Anion Gap (6-13) BUN (6-20) mg/dL Creatinine (0.6-1.3) mg/dL Estimated GFR (MDRD) (>89) Glucose (74-104) mg/dL Calcium (8.5-10.3) mg/dL Total Bilirubin (0.2-1.0) mg/dL AST (10-42) IU/L ALT (10-60) IU/L Alkaline Phosphatase (42-121) IU/L Total Protein (6.4-8.9) g/dL Albumin (3.2-5.5) g/dL Globulin (2.1-4.2) g/dL Albumin/Globulin Ratio (1.0-2.2) Lipase (11-82) U/L Nasal Adenovirus (PCR) NOT DETECTED Nasal B. parapertussis DNA (PCR) NOT DETECTED Nasal Coronavir 229E PCR NOT DETECTED Nasal Coronavir HKU1 PCR NOT DETECTED Nasal Coronavir NL63 PCR NOT DETECTED Nasal Coronavir OC43 PCR NOT DETECTED Nasal Enterovir/Rhinovir PCR DETECTED A Nasal Influenza B PCR NOT DETECTED Nasal Influenza A PCR NOT DETECTED Nasal Parainfluen 1 PCR NOT DETECTED Nasal Parainfluen 2 PCR NOT DETECTED Nasal Parainfluen 3 PCR NOT DETECTED Nasal Parainfluen 4 PCR NOT DETECTED Nasal RSV (PCR) NOT DETECTED Nasal B.pertussis DNA PCR NOT DETECTED Nasal C.pneumoniae (PCR) NOT DETECTED Clay Human Metapneumo PCR NOT DETECTED Nasal M.pneumoniae (PCR) NOT DETECTED Nasal SARS-CoV-2 (PCR) NOT DETECTED - Diagnostic Imaging Diagnostic Imaging Results: positive: Final report reviewed - Other Results/Comments Other Results/Comments: CXR negative for infiltrate ABX Reporting Has patient been on IV antibiotics over the past 48 hours?: No Sepsis Event Note (H) - Evaluation Current Stage of Sepsis: Ruled out Assessment/Plan - Problem List (1) Hypoxia Impression: When I saw her this morning was on 15 L via oxygen mask able to wean this down to 10 L and then to 15 L Oxymizer. Pulse oximetry 87% when she came in at midnight. She is maintained in the low 90s with treatment as mentioned above. She is continuing to improve and is down to NC this afternoon, 4L (2) Asthma Impression: Hypoxia with coarse breath sounds and wheezing throughout all lung cantu. She is currently on prednisone 40 mg a day. I am going to increase therapy. I will give her a one-time dose of Solu-Medrol 125mg. I will to give her 4 additional days of 40 mg, dependent on her response, may increased this dose tomorrow. She has a nebulizer at home. I will institute budesonide nebs here and tentatively plan to continue those upon discharge. She is currently getting albuterol /ipratropium nebulizer treatments; I will move these from as needed to scheduled. Qualifiers: Asthma severity: moderate Asthma complication type: with acute exacerbation Qualified Code(s): J45.41 - Moderate persistent asthma with (acute) exacerbation (3) Rhinovirus Impression: Due to causitive organism, will not treat this patient with antibiotics. She has no pneumonia on CXR (4) Opiate dependence Impression: She reports prolonged QT on EKG as an outpatient. She reports that he she has tried Suboxone in the past and this has not been successful therapy for her. Methadone center was called and dose was confirmed. We have given her 160 mg we will continue to give her 160 mg of methadone daily. (5) Anemia Impression: She is 2 months from a . She has not had a menses since her . Iron studies are pending at this time. Her hemoglobin was 11.9 on admission. (6) Transaminitis Impression: Mild transaminitis of unclear origin. This is persistent on repeat labs. Question fatty liver. Recommend repeat CMP in the outpatient environment. Alkaline phosphatase and bilirubin are within normal limits. (7) Hyperglycemia Impression: Glucose elevated on chemistries 114 on admission 139 this morning. Could be related to steroid use. She did not have any diabetes of . We will check a hemoglobin A1c. This is pending.
[2023-10-16] MEDS: FAMOTIDINE 20 MG TABLET PO SCH (09:16)
[2023-10-16] MEDS: SODIUM CHLORIDE FLUSH 0.9% 10 ML SYRINGE IVP SCH (10:43)
[2023-10-16] MEDS: IPRATROPIUM/ALBUTEROL 3 ML NEB INH SCH (10:50)
[2023-10-16] MEDS: methylPREDNISolone SUCCINATE 125 MG/2 ML VIAL IVP ONE (11:06)
[2023-10-16] MEDS: METHADONE 50 MG/5 ML ORAL SYRINGE PO SCH (11:07)
[2023-10-16 12:49] LABS: ESTIMATED AVERAGE GLUCOSE 85 mg/dL (70-100); HEMOGLOBIN A1c% 4.6 % (4.27-6.07)
--- NOTE | 2023-10-16 12:55 | PHARMACY PROGRESS NOTE ---
- Best Possible Medication History Admit Date and Time: 10/16/23 1101 Processed by: Pharmacy Medications reviewed in ED?: No Medication History completed: Yes Patient Interview: Pt unable to participate Secondary Source(s): Physician records, Pharmacy records, Insurance records As the person ultimately responsible for medication therapy, providers are able to order a medication from an existing home medication list in [facility] via the "Reconcile Routine" prior to Confirmation of that medication by bioinformatics support specialist. Such practice is discouraged except when the physician, in their clinical judgment, deems that a medical need exists for a medication without regard to previous use.
[2023-10-16] MEDS: BUDESONIDE 0.5 MG/2 ML NEB INH SCH (18:33)
[2023-10-16] MEDS ORDERED: ALBUTEROL NEB 2.5 MG/3 ML INH PRN (18:53)
[2023-10-17 05:17] LABS: BASOPHILS % (AUTO) 0.2 %; EOSINOPHILS # (AUTO) 0.1 10^3/uL (0.0-0.7); EOSINOPHILS % (AUTO) 0.8 %; HCT - HEMATOCRIT 34.5 % (37.0-47.0); HGB - HEMOGLOBIN 10.6 g/dL (12.0-16.0); LYMPHOCYTES # (AUTO) 2.9 10^3/uL (1.5-3.5); LYMPHOCYTES % (AUTO) 25.3 %; MEAN CORPUSCULAR HEMOGLOBIN 28.6 pg (27.0-31.0); MEAN CORPUSCULAR HGB CONC 30.7 g/dL (32.0-36.0); MEAN CORPUSCULAR VOLUME 93.2 fL (81.0-99.0); MEAN PLATELET VOLUME 9.3 fL (7.9-10.8); MONOCYTES # (AUTO) 0.9 10^3/uL (0.0-1.0); MONOCYTES % (AUTO) 7.3 %; NEUTROPHILS # (AUTO) 7.7 10^3/uL (1.5-6.6); NEUTROPHILS % (AUTO) 65.8 %; PLT - PLATELET COUNT 255 10^3/uL (130-450); RED CELL DISTRIBUTION WIDTH 13.2 % (12.0-15.0); WHITE BLOOD COUNT 11.6 x10^3/uL (4.8-10.8)
[2023-10-17 05:25] LABS: MAGNESIUM 1.8 mg/dL (1.7-2.3)
[2023-10-17 05:31] LABS: CALCIUM 8.4 mg/dL (8.5-10.3); CREATININE 0.5 mg/dL (0.6-1.3); POTASSIUM 4.2 mmol/L (3.5-4.5)
--- NOTE | 2023-10-17 08:14 | PROVIDER PROGRESS NOTE ---
Subjective - Prog Note Date Prog Note Date: 10/17/23 Prog Note Time: 08:12 - Subjective Pt reports feeling: Worse Subjective: yesterday afternoon had improved, and was feeling well, almost normal, but this AM, is back on oxymask 10L to keep O2 sat 93-95%. She feels short of breath. This afternoon, feeels better after steroid dose increased Current Medications - Current Medications Current Medications: Medications Albuterol (Albuterol Neb 2.5 Mg/3 Ml) 2.5 mg INH RTQ4H PRN PRN Reason: Wheezing Famotidine (Famotidine 20 Mg Tablet) 20 mg PO DAILY [facility] Last Admin: 10/16/23 09:16 Dose: Not Given Acetaminophen (Acetaminophen 325 Mg Tablet) 650 mg PO Q4HR PRN PRN Reason: Pain 1 to 4, or Fever Albuterol/Ipratropium (Ipratropium/Albuterol 3 Ml Neb) 3 ml INH RTQID [facility] Last Admin: 10/17/23 08:00 Dose: 3 ml Budesonide (Budesonide 0.5 Mg/2 Ml Neb) 0.5 mg INH RTBID [facility] Last Admin: 10/17/23 08:00 Dose: 0.5 mg Ibuprofen (Ibuprofen 400 Mg Tablet) 400 mg PO Q4HR PRN PRN Reason: Pain 1 to 4 Methadone HCl (Methadone 50 Mg/5 Ml Oral Syringe) 160 mg PO DAILY [facility] Methylprednisolone (Methylprednisolone Succinate 40 Mg/Ml Vial) 40 mg IVP TID [facility] Stop: 10/18/23 06:01 Objective - Vital Signs/Intake & Output Reviewed Vital Signs: Yes Vital Signs: Vital Signs x48h Temp Pulse Pulse Resp BP Pulse Ox O2 Flow Rate 10/17/23 08:03 71 16 10 10/17/23 08:00 36.3 C L 95 20 129/81 H 95 10 Intake & Output: Intake & Output 10/14/23 10/15/23 10/16/23 10/17/23 23:59 23:59 23:59 23:59 Intake Total 3980 Balance 3980 - Objective General Appearance: positive: Mild distress Eyes Bilateral: positive: Normal inspection ENT: positive: ENT inspection nml Neck: positive: Nml inspection Respiratory: positive: Chest non-tender, No respiratory distress, Wheezes Cardiovascular: positive: Regular rate & rhythm Abdomen: positive: No distention Back: positive: Nml inspection Skin: positive: Color nml Extremities: positive: Non-tender Neurologic/Psychiatric: positive: Oriented x3 - Lab Results Fish Bones: 10/17/23 04:59 10/17/23 04:59 Other Labs: Lab Results x24hrs 10/17/23 10/17/23 10/16/23 Range/Units 04:59 04:59 05:23 WBC 11.6 H (4.8-10.8) x10^3/uL RBC 3.70 L (4.20-5.40) 10^6/uL Hgb 10.6 L (12.0-16.0) g/dL Hct 34.5 L (37.0-47.0) % MCV 93.2 (81.0-99.0) fL MCH 28.6 (27.0-31.0) pg MCHC 30.7 L (32.0-36.0) g/dL RDW 13.2 (12.0-15.0) % Plt Count 255 (130-450) 10^3/uL MPV 9.3 (7.9-10.8) fL Neut # (Auto) 7.7 H (1.5-6.6) 10^3/uL Lymph # (Auto) 2.9 (1.5-3.5) 10^3/uL Beadle # (Auto) 0.9 (0.0-1.0) 10^3/uL Eos # (Auto) 0.1 (0.0-0.7) 10^3/uL Baso # (Auto) 0.0 (0.0-0.1) 10^3/uL Absolute Nucleated RBC 0.00 x10^3/uL Nucleated RBC % 0.0 /100WBC Sodium 138 (135-145) mmol/L Potassium 4.2 (3.5-4.5) mmol/L Chloride 110 (101-111) mmol/L Carbon Dioxide 23 (21-32) mmol/L Anion Gap 5.0 L (6-13) BUN 10 (6-20) mg/dL Creatinine 0.5 L (0.6-1.3) mg/dL Estimated GFR (MDRD) 146 (>89) Glucose 112 H (74-104) mg/dL Estimat Average Glucose 85 (70-100) mg/dL Hemoglobin A1c % 4.6 (4.27-6.07) % Calcium 8.4 L (8.5-10.3) mg/dL Magnesium 1.8 (1.7-2.3) mg/dL Iron 54 (50-212) ug/dL TIBC 319 (250-450) ug/dL % Saturation 17 L (20-50) % Transferrin 228 (203-362) mg/dL Sepsis Event Note (H) - Evaluation Current Stage of Sepsis: Ruled out Assessment/Plan - Problem List (1) Hypoxia Impression: When I saw her this morning was on 10 L via oxygen mask able to wean this down 4L NC at rest. Pulse oximetry 87% at admit. She is maintained in the low 90s with treatment as mentioned above. I have increased her steroids to 80mg TID. with nebulizers and steroids, hope for improvement overnight and weaning of oxygen. (2) Asthma Impression: Hypoxia with coarse breath sounds and wheezing throughout all lung cantu. yesterday, I added solumedrol 125mg. This AM, worsened, therefore increased to 80mg Solumedrol TID She has a nebulizer at home. I have institued budesonide nebs here and jessica pacheco plan to continue those upon discharge. She is currently getting albuterol /ipratropium nebulizer treatments; I will move these from as needed to scheduled. And added PRN Albuterol/ipratropium nebs as well. Qualifiers: Asthma severity: moderate Asthma complication type: with acute exacerbation Qualified Code(s): J45.41 - Moderate persistent asthma with (acute) exacerbation (3) Rhinovirus Impression: Due to causitive organism, will not treat this patient with antibiotics. She has no pneumonia on CXR This is, however the likely cause of her asthma exacerbation with hyoxia (4) Opiate dependence Impression: She reports prolonged QT on EKG as an outpatient. She reports that he she has tried Suboxone in the past and this has not been successful therapy for her. Methadone center was called and dose was confirmed. We have given her 160 mg we will continue to give her 160 mg of methadone daily. (5) Leukocytosis Impression: Normal WBC on presentation and now elevated in the setting of steroids. I do not think this is indicative of secondary bacterial infection. (6) Anemia Impression: slight iron deficiency. She has decreased iron saturation, slight. otherwise iron studies are normal: Transferrin 228, total iron binding capacity 319, iron 54.I would not institute treatment for this. (7) Transaminitis Impression: Continues with a mild transaminitis. Would recommend repeat as an outpatient to follow-up. Could be from irritation related to this virus. (8) Hyperglycemia Impression: Likely related to steroids and infection. A1c is 4.6%. This patient does not have diabetes.
[2023-10-17] MEDS: methylPREDNISolone SUCCINATE 40 MG/ML VIAL IVP SCH (08:42)
[2023-10-17] MEDS: METHADONE 50 MG/5 ML ORAL SYRINGE PO SCH (08:43)
[2023-10-17] MEDS ORDERED: methylPREDNISolone SUCCINATE 40 MG/ML VIAL IVP SCH (09:00)
[2023-10-18 08:18] VITALS: BP 127/69; O2SAT 92
--- NOTE | 2023-10-18 13:31 | Discharge Plan ---
Discharge Plan Problem Reviewed?: Yes Disposition: Home, Self Care Condition: Good Prescriptions: Albuterol 2.5 mg INH RTQ4H PRN 30 Days #180 ea PRN Reason: Wheezing predniSONE [Deltasone] 5 mg PO 0800 16 Days #134 tablet Albuterol Sulfate [Proair Respiclick] 2 puffs PO Q6H PRN #1 each PRN Reason: Shortness Of Air/Wheezing Budesonide/Formoterol Fumarate [Symbicort 160-4.5 Mcg Inhaler] 1 puffs IH BID 60 Days #1 each Diet: Regular Activity Restrictions: No Restrictions Shower Restrictions: No Driving Restrictions: No Instruction Topics: Asthma Dc Health Concerns: 3 days she came to the ER it sounds like your asthma is controlled most of the time, but you got this virus and it seems to have exacerbated your asthma quite severely. As you know while you were here you got supportive oxygen therapy and treatment for your asthma. I think it is safest to send you home on some additional steroids. The instructions for your steroid therapy may seem sort of strange you have to take a lot of pills for the first few days but this is simply because I want to taper you down to a very small dose at the end. You will be on 60 mg a day then 40 mg a day then 20 mg a day then 10 mg a day and finally 5 mg a day. I have sent in a prescription for an inhaler that also has steroids and something to keep your lungs open. It should be covered by your insurance according to my research. Go ahead and use this inhaler twice a day. Hopefully it will keep your asthma under control. After you use the inhaler either rinse out your mouth or brush your teeth. It can cause oral thrush if you do not. If you have trouble with any of the medications that we sent in please call up here. I should be here every day during the day and can try to help get the medications straightened out. Plan of Treatment: Steroid taper, albuterol, inhaled steroids. Care Goals: Asthma control and getting home to take care of your kids Assessment: You had a bad asthma attack secondary to this virus. Hopefully will never happen again. Please call your primary care doctor's office at [place] and get seen in follow-up for your asthma. Also follow-up with Dr. Aranda for your women's health concerns. Additional Instructions or Follow Up instructions: You were seen in the emergency department for asthma. prescriptions sent to [facility]. Please follow-up with your primary care provider and return to the emergency department if you have any new or worsening symptoms or other concerns. No Smoking: If you smoke, Please STOP! Call for help.
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
== END 2023-10-18 16:19 | disposition home or self-care (01) | DRG 189 ==
LOC: ED 23:49 → MS2 10-16 02:20 → OBSVTOIN 10-16 11:01
PROVIDERS: ADMIT Internal Medicine; ATTEND Physician Assistant Medical
DX: J96.01 Acute respiratory failure with hypoxia (principal); F11.20 Opioid dependence, uncomplicated; J45.41 Moderate persistent asthma with (acute) exacerbation; E87.6 Hypokalemia; D64.9 Anemia, unspecified; R74.01 Elevation of levels of liver transaminase levels; B34.8 Other viral infections of unspecified site; R73.9 Hyperglycemia, unspecified; K21.9 Gastro-esophageal reflux disease without esophagitis; D72.829 Elevated white blood cell count, unspecified; Z20.818 Contact with and (suspected) exposure to other bacterial communicable diseases; Z20.822 Contact with and (suspected) exposure to COVID-19; Z20.828 Contact with and (suspected) exposure to other viral communicable diseases; Z79.899 Other long term (current) drug therapy; Z87.891 Personal history of nicotine dependence; Z88.8 Allergy status to other drugs, medicaments and biological substances
CPT/HCPCS: 36415; 71046; 80048; 80053; 82803; 83036; 83540; 83690; 83735; 84466; 85025; 87633; 94640; 94664; 94761; A9270; J7512; J7626